=== PATIENT | female | born 1985 | race Caucasian/White ===

== ENCOUNTER 2023-04-28 09:10 | Outpatient (AMB) | payer OTHER, SELFPAY ==
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
[2023-04-28 09:15] VITALS: BP 118/66; PULSE 91; RESP 12; TEMP 36.2; O2SAT 98; BMI 27.9
== END 2023-04-28 10:27 | disposition home or self-care (01) ==
PROVIDERS: PCP Internal Medicine; Visit Provider Nurse Practitioner Family
DX: Z00.00 Encounter for general adult medical examination without abnormal findings (principal); F41.9 Anxiety disorder, unspecified; F32.A Depression, unspecified; F43.10 Post-traumatic stress disorder, unspecified; M54.9 Dorsalgia, unspecified
CPT/HCPCS: 96127; 99214; 99385

== ENCOUNTER 2023-04-28 10:12 | Outpatient (REF) | payer OTHER, SELFPAY ==
[2023-04-28 11:27] LABS: Appearance Urine Clear; Color Urine Dark Yellow; Glucose Urine UA Negative (Negative); Leukocyte Esterase Urine Trace (Negative); Nitrite Urine Negative (Negative); Specific Gravity - Urine >= 1.030 (1.005-1.025); UMIC TRIGGER UACC YES; Urine Blood Trace (Negative); Urine Ketones Trace mg/dL (Negative); Urine Protein Trace mg/dL (Neg-Trace)
[2023-04-28 11:35] LABS: Bacteria Urine Trace (None Seen); UACC Culture Trigger YES
[2023-04-28 11:37] LABS: MANUAL DIFF FLAG NO
[2023-04-28 11:44] LABS: Basophils Percent Auto 0.5 % (0-2); Eosinophils Absolute Auto 0.1 X10*3/uL (0.0-0.4); Eosinophils Percent Auto 0.8 % (0-4); Hematocrit 35.1 % (37.0-47.0); Hemoglobin 11.6 g/dl (12.0-16.0); Imm Gran Abs Auto 0.02 X10*3/uL (0.00-0.03); Imm Gran Pct Auto 0.3 % (0.0-0.4); Lymphocytes Absolute Auto 1.6 X10*3/uL (1.2-4.9); Lymphocytes Percent Auto 26.1 % (20-40); Mean Corpuscular Hemoglobin 29.7 pg (27.0-33.0); Mean Platelet Volume 9.8 fL (9.4-12.3); Monocytes Absolute Auto 0.6 X10*3/uL (0.1-1.2); Monocytes Percent Auto 9.2 % (2-11); Neutrophils Percent Auto 63.1 % (45-73); Platelet Count 392 X10*3/uL (160-400); Red Cell Distribution Width 13.3 % (11.0-16.0); White Blood Count 6.3 X10*3/uL (4.8-10.8)
[2023-04-28 12:52] LABS: Alanine Aminotransferase 21 U/L (0-31); Albumin Level 4.4 g/dL (3.5-5.0); Alkaline Phosphatase 48 U/L (39-117); Anion Gap 14 (12-20); Aspartate Amino Transferase 23 U/L (5-31); Bilirubin Total 1.5 mg/dL (0.0-1.0); Blood Urea Nitrogen 17 mg/dL (9-16); Carbon Dioxide 24 mmol/L (22-29); Chloride 104 mmol/L (96-108); Cholesterol 174 mg/dL (<200); Estimated Glomerular Filt Rate > 60; Glucose Fasting 86 mg/dL (60-99); HDL Cholesterol 69 mg/dL (>40); LDL Cholesterol Calculated 94 mg/dL (<100); Potassium 4.1 mmol/L (3.3-5.1); Sodium 138 mmol/L (135-145); Total Protein 7.5 g/dL (6.5-8.0); Triglycerides 55 mg/dL (<150)
== END 2023-04-28 10:13 | disposition home or self-care (01) ==
LOC: HO.WFDLDS 10:12
PROVIDERS: Visit Provider Nurse Practitioner Family
DX: Z00.00 Encounter for general adult medical examination without abnormal findings (principal); Z20.2 Contact with and (suspected) exposure to infections with a predominantly sexual mode of transmission; R82.90 Unspecified abnormal findings in urine
CPT/HCPCS: 36415; 80053; 80061; 81001; 84443; 85025; 87086

== ENCOUNTER 2023-11-28 12:32 | Outpatient (AMB) | payer OTHER, SELFPAY ==
[2023-11-28 12:41] VITALS: BP 104/60; PULSE 62; RESP 14; TEMP 36.6; O2SAT 99; BMI 30.2
--- NOTE | 2023-11-28 12:41 | MHC.PC.OV ---
Vital Signs 11/28/23 12:41 Height 5 ft 6 in Weight 187 lb 6 oz BMI 30.2 BP 104/60 Blood Pressure Location Rt brachial Position Sitting Respiration 14 Pulse 62 Pulse Source Pulse Oximeter Temp 97.9 F Temp Source Temporal Artery Scan Pulse Oximetry (%) 99 Oxygen Delivery Method Room Air Intake Visit Reasons: F/U meds, blood work, referrals Intake Note: Patient would like refill her lexapro. 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 Accompanied by: Self / Same As Patient Allergies dyes Adverse Reaction (Severe, Uncoded 11/28/23 12:57) 3rd degree haskins fragrance Adverse Reaction (Severe, Uncoded 11/28/23 12:57) Haskins inks Adverse Reaction (Severe, Uncoded 11/28/23 12:57) Haskins Medication List - Last Reconciled 11/28/23 by Logan Garcia CNP escitalopram oxalate (Lexapro) 10 mg PO DAILY 30 days naproxen 500 mg PO BID PRN Tobacco use date assessed: 11/28/23 Dental Screening Dental Screen Date: 11/28/23 Did you have a dental visit in the last 12 months?: Yes Did you have a dental problem in the last 6 months where you did not have access to dental care?: No Was dental information given to patient?: Patient has dentist HPI HPI Comments History of Present Illness Details 38-year-old female presents for right shoulder pain and anxiety and depression follow-up Her last visit was when she established care in April 2023. Escitalopram 10 mg daily was ordered for anxiety, depression, and PTSD. She was advised to follow-up in 1 month She notes that she got promoted at work and has been working many hours She reports constant right shoulder pain which waxes and wanes for the past 2 weeks, worst with pulling objects/doors. She she is in the and often carries 50 lbs of work gear on her shoulders and back. No tingling, numbness, loss of sensation. No fall, injury, or trauma She reports well-controlled anxiety and depression symptoms on Escitalopram She request a letter for her employment noting that escitalopram does not affect her job functions [facility] Medical History (Updated 11/28/23 @ 13:26 by Logan Garcia CNP) Right arm pain Migraine delivery delivered Anxiety PTSD (post-traumatic stress disorder) Memory loss Back problem Arthritis Surgical History (Updated 04/28/23 @ 09:30 by ROXY Kurtz) Status post fusion of wrist H/O tubal ligation Family History (Updated 11/28/23 @ 12:50 by ROXY Kurtz) Mother High cholesterol Father Clotting disorder Alcoholism Psychiatric disorder Paternal Grandmother Clotting disorder Paternal Grandfather Clotting disorder Family/Other Asthma Other Mental health disorder Substance abuse Social History Household Members: Family Both parents involved: No Caregiver staying overnight: No Housing: House Are you a primary personal carer to a significant other at home: No Do you presently have visiting nurse or other home services: No 75 years or older and lives alone: No Alcohol intake: never Patient Tobacco Use Status: Never used Tobacco e-Cigarette/Vaping Use: Never Used service: Yes 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 1. Little interest or pleasure in doing things: not at all 2. Feeling down, depressed, or hopeless: not at all 3. Trouble falling or staying asleep, or sleeping too much: nearly every day 4. Feeling tired or having little energy: several days 5. Poor appetite or overeating: nearly every day 6. Feeling bad about yourself - or that you are a failure or have let yourself or your family down: not at all 7. Trouble concentrating on things, such as reading the newspaper or watching television: several days 8. Moving or speaking so slowly that other people could have noticed. Or the opposite - being so fidgety or restless that you have been moving around a lot more than usual: several days 9. Thoughts that you would be better off or of hurting yourself in some way: not at all Total score: 9 Depression Screening Interpretation: Positive Depression Screening Follow-up: Existing condition and In treatment Depression Screening Done: Yes 73693 - PHQ-9 Billing: Yes Source: Developed by Drs. Adonay Amaya, Louann Brito, Darien Zarco and colleagues, with an educational dee from [employer]. Thrive Questionnaire Date Thrive assessed: 04/28/23 ESTER-7 AMB Questionnaire ESTER-7 Date ESTER - 7 assessed: 11/28/23 Feeling nervous, anxious, or on edge: 0 = Not at all Not being able to stop or control worryin = Not at all Worrying too much about different things: 0 = Not at all Trouble relaxin = Several days Being so restless that it is hard to sit still: 2 = More than half the days Becoming easily annoyed or irritable: 1 = Several days Feeling afraid as if something awful might happen: 0 = Not at all Total ESTER-7 score (0-4 normal; 5-9 mild; 10-14 moderate; 15-21 severe): 4 Source: Developed by Drs. Adonay Amaya, Louann Brito, Darien Zarco and colleagues, with an educational dee from [employer]. ESTER-7 Assessment Billing ESTER-7 Assessment Tool: ESTER-7 Assessment 94400 Review of Systems Const Details: Const Denies chills, Denies fatigue, Denies fever(s), Denies headache(s) and Denies weakness ENT Denies dizziness and Denies headache(s) Card Denies chest pain, Denies lightheadedness, Denies dyspnea and Denies other (Palpitations) Resp Denies cough, Denies dyspnea, Denies wheezing and Denies other ( shortness of breath) GI Denies abdominal pain, Denies melena, Denies hematochezia, Denies change in bowel habits, Denies dyspepsia and Denies nausea Denies hematuria and Denies dysuria Musc Reports as per HPI Skin/Breast Denies rash, Denies unusual bruising and Denies wounds Neuro Denies abnormal gait, Denies dizziness, Denies headache(s), Denies memory loss, Denies numbness, Denies Sensory deficit (Neuro), Denies tingling and Denies weakness Psych Denies anxiety, Denies depression, Denies memory loss Endo Denies cold intolerance, Denies fatigue, Denies heat intolerance, Denies polydipsia and Denies polyuria Aller/Immun Denies wheezing Physical exam (Primary Care) Vital Signs: Last Vital Signs Temp 97.9 F 11/28/23 12:41 Pulse 62 11/28/23 12:41 Resp 14 11/28/23 12:41 BP 104/60 11/28/23 12:41 Pulse Ox 99 11/28/23 12:41 Oxygen Delivery Method Room Air 11/28/23 12:41 BMI result Body Mass Index 30.2 Tobacco/Smoking Status: Tobacco use Status Tobacco use date assessed 04/28/23 04/28/23 09:27 Patient Tobacco Use Status Never used Tobacco 04/28/23 09:27 e-Cigarette/Vaping Use Never Used 04/28/23 09:27 Depression Screening Interpretation: Positive Depression Screening Follow-up: Existing condition and In treatment Thrive Assessment: Date of Thrive Assessment Date Thrive assessed 04/28/23 04/28/23 10:18 Const Other: General: no acute distress and well developed Nutritional Appearance: well nourished Orientation/consciousness: patient oriented x3 HENMT Head: Yes normocephalic and Yes atraumatic Eyes General: appearance normal, both eyes and all related structures Pupils: Equal, round and reactive pupils present EOM: EOMs intact bilaterally Resp Effort & Inspection: normal respiratory effort Auscultation: clear to auscultation bilaterally Cardio Rate: regular rate Rhythm: regular rhythm Heart sounds: S1 normal heart sound present, S2 normal heart sound present, no gallops, no murmurs and no rubs GI Palpation (GI): No Abdominal aortic bruit present, Soft to palpation, nontender, No hepatosplenomegaly present and No Rebound tenderness present Auscultation: normal bowel sounds General: Yes no CVA tenderness Back/Spine/Pelvis Back: no CVA tenderness Cervical Spine: cervical ROM normal and No Cervical spine tenderness Thoracic/Lumbar Spine: thoraco-lumbar ROM normal, No pain with thoraco-lumbar ROM, No thoracic spinal tenderness and No lumbar spinal tenderness Extrem General: Yes normal to inspection, No edema and No calf tenderness ROM of the right shoulder WNL and with tenderness. No overt trauma or injury Skin General: warm and dry. Normal skin color. Normal skin turgor Neuro General: patient oriented x3, gait normal and no focal neuro deficit Cranial nerves: Yes Equal, round and reactive pupils present Cognition (Neuro): normal cognition Gait exam (Neuro): Normal gait present Sensory Exam: No Sensory deficit (Neuro) Psych Appearance: grossly normal Affect: normal affect Attitude: cooperative Thought process: Normal thought process present Assessment and Plan Assessment & Plan (1) Anxiety and depression: Code(s): F41.9 - Anxiety disorder, unspecified; F32.A - Depression, unspecified Plan: Reports controlled anxiety and depression symptoms PHQ-9 score reveals mild depression. ESTER-7 score is normal Escitalopram 10 mg daily refilled. Advised to take as prescribed Routine exercise encouraged Work letter given Follow-up in 1 month or return sooner with symptoms or concerns Verbalized understanding and agreed with treatment plan (2) Right shoulder pain: Code(s): M25.511 - Pain in right shoulder Plan: Constant right shoulder pain which waxes and wanes for the past 2 weeks, worst with pulling objects/doors. She usually carries 50 lbs of work gear on her shoulders and back ROM of the right shoulder WNL and with tenderness. No overt trauma or injury Likely strain or sprain Encouraged to avoid heavy lifting, carrying more than 10 lb on her shoulders or back, sports, and exercise until healed Advised to take naproxen twice daily as needed Warm/cold compresses encouraged Continue to apply muscle rub Follow-up with worsening or new symptoms. May order x-ray and referred to PT Verbalized understanding and agreed with treatment plan (3) Hyperbilirubinemia: Code(s): E80.6 - Other disorders of bilirubin metabolism Plan: Recent lab results reviewed with the patient. Unremarkable findings, except for slightly elevated bilirubin level, 1.5 No acute symptoms Gilbert syndrome is likely Will recheck bilirubin level to monitor trend Verbalized understanding and agreed with the plan Orders: Orders Bilirubin Total Today E80.6 - Other disorders of bilirubin metabolism Medications: Refilled escitalopram oxalate (Lexapro) 10 mg PO DAILY 30 days 30 tabs 3RF Coding Level of Care Code Est Pt Level 4 (90856) Complex EM visit Add On G2211 Diagnoses Anxiety and depression F41.9; F32.A Right shoulder pain M25.511 Hyperbilirubinemia E80.6 Additional Codes ESTER-7 Assessment Billing - ESTER-7 Assessment Tool: ESTER-7 Assessment [id number] ([id number])
== END 2023-11-28 13:16 | disposition home or self-care (01) ==
PROVIDERS: PCP Nurse Practitioner Family; Visit Provider Nurse Practitioner Family
DX: M25.511 Pain in right shoulder (principal); F41.9 Anxiety disorder, unspecified; F32.A Depression, unspecified; E80.6 Other disorders of bilirubin metabolism
CPT/HCPCS: 99214; G2211

== ENCOUNTER 2023-12-29 08:32 | Outpatient (AMB) | payer OTHER, SELFPAY ==
--- NOTE | 2023-12-29 08:33 | A.OFFPC_ITS ---
Vital Signs 12/29/23 08:35 Height 5 ft 6 in Weight 193 lb BMI 31.1 BP 114/70 Blood Pressure Location Rt brachial Position Sitting Respiration 14 Pulse 55 Pulse Source Pulse Oximeter Temp 97.8 F Temp Source Temporal Artery Scan Pulse Oximetry (%) 99 Oxygen Delivery Method Room Air Intake Visit Reasons: 1 mos CPE Lab Tester Required: No Accompanied by: Self / Same As Patient Allergies dyes Adverse Reaction (Severe, Uncoded 12/29/23 08:49) 3rd degree haskins fragrance Adverse Reaction (Severe, Uncoded 12/29/23 08:49) Haskins inks Adverse Reaction (Severe, Uncoded 12/29/23 08:49) Haskins Medication List - Last Reconciled 12/29/23 by Logan Garcia CNP escitalopram oxalate (Lexapro) 10 mg PO DAILY 30 days naproxen 500 mg PO BID PRN Tobacco use date assessed: 12/29/23 Dental Screening Dental Screen Date: 12/29/23 Did you have a dental visit in the last 12 months?: Yes Did you have a dental problem in the last 6 months where you did not have access to dental care?: No Was dental information given to patient?: Patient has dentist HPI HPI Comments History of Present Illness Details 38-year-old female presents for an exten ded physical exam She has history of chronic back pain, right shoulder pain, hyperbilirubinemia, PTSD, anxiety, and depression She admits to taking her medications as prescribed without adverse reactions She notes that her right shoulder pain has significantly improved from 10/10 to 3/10 on the pain scale She reports controlled anxiety and depression symptoms on current treatment regimen She notes that she generally eats healthy but consuming a lot of food has gained weight recently; request medication for weight management. She has not been exercising due to right shoulder pain. She does not sleep well because she works night shifts Last pap smear test in [place] was 1.5 year ago: normal; she will obtain record and bring to his PCP She does not smoke cigarettes. Does not drink alcohol. No recreational drug use She requests a note for his employer stating no pushups due to right shoulder pain [facility] Medical History Right arm pain Migraine delivery delivered Anxiety PTSD (post-traumatic stress disorder) Memory loss Back problem Arthritis Surgical History Status post fusion of wrist H/O tubal ligation Family History Mother High cholesterol Father Clotting disorder Alcoholism Psychiatric disorder Paternal Grandmother Clotting disorder Paternal Grandfather Clotting disorder Family/Other Asthma Other Mental health disorder Substance abuse Social History Household Members: Family Both parents involved: No Caregiver staying overnight: No Housing: House Are you a primary nanny caregiver to a significant other at home: No Do you presently have visiting nurse or other home services: No 75 years or older and lives alone: No Alcohol intake: never Patient Tobacco Use Status: Never used Tobacco e-Cigarette/Vaping Use: Never Used service: Yes 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 1. Little interest or pleasure in doing things: several days 2. Feeling down, depressed, or hopeless: several days 3. Trouble falling or staying asleep, or sleeping too much: nearly every day 4. Feeling tired or having little energy: not at all 5. Poor appetite or overeating: nearly every day 6. Feeling bad about yourself - or that you are a failure or have let yourself or your family down: not at all 7. Trouble concentrating on things, such as reading the newspaper or watching television: not at all 8. Moving or speaking so slowly that other people could have noticed. Or the opposite - being so fidgety or restless that you have been moving around a lot more than usual: not at all 9. Thoughts that you would be better off or of hurting yourself in some way: not at all Total score: 8 Depression Screening Interpretation: Positive Depression Screening Follow-up: Existing condition and In treatment Depression Screening Done: Yes 70094 - PHQ-9 Billing: Yes Source: Developed by Drs. Adonay Amaya, Louann Brtio, Darien Zarco and colleagues, with an educational dee from [employer] Thrive Questionnaire Date Thrive assessed: 12/29/23 I am a: Patient What is your living situation today?: I have a steady place to live Within the past 12 months, did the food you bought not last and you didn't have the money to get more?: Never true Within the past 12 months, did you worry whether your food would run out before you got money to buy more?: Never true Do you have trouble paying for medicines?: No Do you have trouble getting transportation to medical appointments?: No Do you have trouble paying your heating and electricity bill?: No Do you have trouble taking care of your child, family member or friend?: No Do you have trouble with day-to-day activities such as bathing, preparing meals, shopping, managing finances, etc.?: No Are you currently unemployed and looking for a job?: No Are you interested in more education?: No Please select the resources that you would like help with: None Currently or been in a relationship where the following occur: no concerns reported THRIVE Score: 0 AUDIT C Alcohol Use Questionnaire (AUDIT-C) 1. How often do you have a drink containing alcohol?: Never 3. How often do you have six or more drinks on one occasion?: Never Total Score: 0 ESTER-7 AMB Questionnaire ESTER-7 Date ESTER - 7 assessed: 12/29/23 Feeling nervous, anxious, or on edge: 0 = Not at all Not being able to stop or control worryin = Not at all Worrying too much about different things: 0 = Not at all Trouble relaxin = Not at all Being so restless that it is hard to sit still: 0 = Not at all Becoming easily annoyed or irritable: 0 = Not at all Feeling afraid as if something awful might happen: 0 = Not at all Total ESTER-7 score (0-4 normal; 5-9 mild; 10-14 moderate; 15-21 severe): 0 Source: Developed by Drs. Adonay Amaya, Louann Brito, Darien Zarco and colleagues, with an educational dee from [employer] ESTER-7 Assessment Billing ESTER-7 Assessment Tool: ESTER-7 Assessment 72063 Review of Systems Const Details: Denies chills, Denies fatigue, Denies fever(s), Denies headache(s) and Denies weakness HEENT Denies change in vision, Denies dizziness, Denies headache(s), Denies hearing loss, Denies nasal congestion, Denies sinus pain, Denies sinus pressure and Denies sore throat Card Denies chest pain, Denies lightheadedness, Denies dyspnea and Denies other (palpitations) Resp Denies cough, Denies dyspnea and Denies wheezing GI Denies abdominal pain, Denies melena, Denies hematochezia, Denies change in bowel habits, Denies dyspepsia and Denies nausea Denies hematuria and Denies dysuria Musc Reports right shoulder pain, Denies abnormal gait, Denies numbness and Denies tingling Skin/Breast Denies rash, Denies unusual bruising and Denies wounds Neuro Denies abnormal gait, Denies dizziness, Denies headache(s), Denies memory loss, Denies numbness, Denies Sensory deficit (Neuro), Denies tingling and Denies weakness Psych Denies anxiety, Denies depression and Denies memory loss Endo Denies cold intolerance, Denies fatigue, Denies heat intolerance, Denies polydipsia and Denies polyuria Shane/Lymph Denies easy bleeding and Denies easy bruising Aller/Immun Denies wheezing Physical exam (Primary Care) Vital Signs: Last Vital Signs Temp 97.8 F 12/29/23 08:35 Pulse 55 12/29/23 08:35 Resp 14 12/29/23 08:35 BP 114/70 12/29/23 08:35 Pulse Ox 99 12/29/23 08:35 Oxygen Delivery Method Room Air 12/29/23 08:35 BMI result Body Mass Index 31.1 Tobacco/Smoking Status: Tobacco use Status Tobacco use date assessed 12/29/23 12/29/23 08:44 Patient Tobacco Use Status Never used Tobacco 12/29/23 08:35 e-Cigarette/Vaping Use Never Used 12/29/23 08:35 PHQ-9: PHQ-9 Score PHQ-9: Total score 8 12/29/23 08:44 Depression Screening Interpretation: Positive Depression Screening Follow-up: Existing condition and In treatment Thrive Assessment: Date of Thrive Assessment Date Thrive assessed 12/29/23 12/29/23 08:44 Currently or been in a relationship where the following occur: no concerns reported Const Other: General: no acute distress, well developed, alert and awake Nutritional Appearance: well nourished Orientation/consciousness: patient oriented x3 [facility] Head: Yes normocephalic and Yes atraumatic Ears: hearing grossly normal bilaterally and TM's normal bilaterally General nose exam: Normal external nose present and Normal nares present Mouth: Normal oral and palatal mucosa present and moist mucous membranes Teeth and gingiva: dentition normal Throat: Yes oropharynx normal Eyes Pupils: Equal, round and reactive pupils present and Pupil accommodation reflex normal EOM: EOMs intact bilaterally Neck Neck: Yes normal visual inspection, Yes no lymphadenopathy and Yes trachea midline Thyroid: Thyroid normal Carotids: no bruits Lymphatic: no lymphadenopathy noted Chest Chest palpation & inspection: normal inspection of the chest Resp Effort & Inspection: normal respiratory effort Auscultation: clear to auscultation bilaterally Cardio Rate: regular rate Rhythm: regular rhythm Heart sounds: S1 normal heart sound present, S2 normal heart sound present, no gallops, no murmurs and no rubs Bruits: no abdominal aortic bruits and no carotid bruits GI Palpation (GI): No Abdominal aortic bruit present, Soft to palpation, nontender, No hepatosplenomegaly present and No Rebound tenderness present Auscultation: normal bowel sounds General: Yes no CVA tenderness Back/Spine/Pelvis Back: no CVA tenderness Cervical Spine: cervical ROM normal and No Cervical spine tenderness Thoracic/Lumbar Spine: thoraco-lumbar ROM normal, No pain with thoraco-lumbar ROM, No thoracic spinal tenderness and No lumbar spinal tenderness Skin General: warm and dry. Normal skin color. Normal skin turgor Lesions: no lesions Rashes: no rashes Trauma: no lacerations or abrasions Wounds: no wounds Nails: normal Neuro General: patient oriented x3, gait normal and CN's II-XI intact bilaterally Cranial nerves: Yes Equal, round and reactive pupils present Cognition (Neuro): normal cognition Gait exam (Neuro): Normal gait present Motor exam (neuro): 5/5 motor strength present throughout Sensory Exam: No Sensory deficit (Neuro) Deep tendon reflexes (DTR's): Right patellar reflex intensity grade: 2+ and Left patellar reflex intensity grade: 2+ Extrem General: Yes normal to inspection, No edema and No calf tenderness Psych Appearance: grossly normal Affect: normal affect Attitude: cooperative Thought process: Normal thought process present Assessment and Plan Assessment & Plan (1) Normal physical examination, routine: Code(s): Z00.00 - Encounter for general adult medical examination without abnormal findings Plan: No significant physical restrictions or limitations noted Continue current treatment regimen Healthy diet and routine exercise encouraged Encouraged to get bilirubin and urinalysis lab work done Follow-up in 3 months for anxiety and depression or return sooner with symptoms or concerns Verbalized understanding and agreed with treatment plan (2) Anxiety and depression: Code(s): F41.9 - Anxiety disorder, unspecified; F32.A - Depression, unspecified Plan: Reports controlled anxiety and depression symptoms PHQ-9 score reveals mild depression. ESTER-7 score is normal Continue current treatment regimen Routine exercise encouraged Follow-up in 3 months Verbalized understanding and agreed with treatment plan (3) Right shoulder pain: Code(s): M25.511 - Pain in right shoulder Plan: Pain has significantly improved from 10/10 to 3/10 on the pain scale Continue current treatment regimen Encouraged to avoid sports or heavy lifting until healed Note given to avoid pushups until healed Referred to physical therapy Follow-up with worsening or new symptoms Verbalized understanding and agreed with treatment plan (4) Obesity (BMI 30.0-34.9): Code(s): E66.9 - Obesity, unspecified Plan: She generally eats healthy. However, she has been consuming significant amount of food and has gained weight recently. She requests medication treatment for weight management Healthy diet and routine exercise encouraged [place] [facility] [place] Follow-up with symptoms or concerns Verbalized understanding and agreed with treatment plan Orders: Orders PT Evaluation and Treatment Today M25.511 - Pain in right shoulder Referrals Medical Weight Management Referral E66.9 - Obesity, unspecified Coding Level of Care Code Est Pt Level 4 (02050) Est Pt Prev Care 18-39y(78444) Diagnoses Normal physical examination, routine Z00.00 Anxiety and depression F41.9; F32.A Right shoulder pain M25.511 Obesity (BMI 30.0-34.9) E66.9 Additional Codes ESTER-7 Assessment Billing - ESTER-7 Assessment Tool: ESTER-7 Assessment 40101 ([id number])
[2023-12-29 08:35] VITALS: BP 114/70; PULSE 55; RESP 14; TEMP 36.6; O2SAT 99; BMI 31.1
== END 2023-12-29 09:04 | disposition home or self-care (01) ==
PROVIDERS: PCP Nurse Practitioner Family; Visit Provider Nurse Practitioner Family
DX: Z00.00 Encounter for general adult medical examination without abnormal findings (principal); F41.9 Anxiety disorder, unspecified; E66.9 Obesity, unspecified; Z68.31 Body mass index [BMI] 31.0-31.9, adult; F32.A Depression, unspecified; M25.511 Pain in right shoulder
CPT/HCPCS: 99395

== ENCOUNTER 2023-12-29 09:20 | Outpatient (REF) | payer OTHER, SELFPAY ==
[2023-12-29 11:48] LABS: Appearance Urine Clear; Color Urine Yellow; Glucose Urine UA Negative (Negative); Leukocyte Esterase Urine Negative (Negative); Nitrite Urine Negative (Negative); PH 5.5 (5.0-9.0); UMIC TRIGGER UACC YES; Urine Blood Large (3+) (Negative); Urine Ketones Negative (Negative); Urine Protein Negative (Neg-Trace)
[2023-12-29 11:55] LABS: Bacteria Urine None Seen (None Seen); Hyaline Casts Urine 0-2 /LPF (0-2); RBC Urine >20 /HPF (0-2); Squamous Epithelial Cell Urine 0-2 /HPF (0-2); WBC Urine 0-5 /HPF (0-5)
[2023-12-29 12:07] LABS: Bilirubin Total 0.4 mg/dL (0.0-1.0)
== END 2023-12-29 09:21 | disposition home or self-care (01) ==
LOC: HO.WFDLDS 09:20
PROVIDERS: Visit Provider Nurse Practitioner Family
DX: Z00.00 Encounter for general adult medical examination without abnormal findings (principal); E80.6 Other disorders of bilirubin metabolism
CPT/HCPCS: 36415; 81001; 82247

== ENCOUNTER 2024-02-27 13:48 | Outpatient (AMB) | payer OTHER, SELFPAY ==
--- NOTE | 2024-02-27 13:49 | A.OFFPC_ITS ---
Vital Signs 02/27/24 13:51 Height 5 ft 6 in Weight 179 lb 6 oz BMI 28.9 BP 130/70 Blood Pressure Location Lt brachial Position Sitting Respiration 18 Pulse 70 Pulse Source Pulse Oximeter Pulse Oximetry (%) 98 Oxygen Delivery Method Room Air Intake Visit Reasons: fill out paperwork for shoulder/ PT orders Intake Note: Patient is here to follow up on fill out paperwork for shoulder and PT order. [employer] Planner Required: No Maintenance Welder: Not Required per policy Accompanied by: Self / Same As Patient Allergies dyes Adverse Reaction (Severe, Uncoded 02/27/24 13:51) 3rd degree haskins fragrance Adverse Reaction (Severe, Uncoded 02/27/24 13:51) Haskins inks Adverse Reaction (Severe, Uncoded 02/27/24 13:51) Haskins Tobacco use date assessed: 02/27/24 Dental Screening Dental Screen Date: 12/29/23 HPI HPI Comments History of Present Illness Details 38-year-old female presents for paperwor k related to right shoulder pain She has history of constant right shoulder pain which intensifies with pulling objects/doors. No tingling, numbness, or loss of sensation. She is in the and often carries 50 lb of work gear on her shoulders and back. She was given a note to avoid pushups until healed. She was also referred to phys ical therapy. She notes that she was told to ask her PCP to fill out a different from which she brought today. She notes that she is scheduled to start PT next month. She has been taking Naproxen 500mg daily with significant improvement. She notes significant improvement of her right shoulder since her last visit; average pain is 2-4/10. [facility] Medical History Right arm pain Migraine delivery delivered Anxiety PTSD (post-traumatic stress disorder) Memory loss Back problem Arthritis Surgical History Status post fusion of wrist H/O tubal ligation Family History Mother High cholesterol Father Clotting disorder Alcoholism Psychiatric disorder Paternal Grandmother Clotting disorder Paternal Grandfather Clotting disorder Family/Other Asthma Other Mental health disorder Substance abuse Social History (Reviewed 08/02/24 @ 13:50 by SANTINO Magaña Household Members: Family Both parents involved: No Caregiver staying overnight: No Housing: House Are you a primary district manager primary care sales to a significant other at home: No Do you presently have visiting nurse or other home services: No 75 years or older and lives alone: No Alcohol intake: never Patient Tobacco Use Status: Never used Tobacco e-Cigarette/Vaping Use: Never Used Second Hand Smoke Exposure: No service: Yes 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 Adonay Amaya, Louann Brito, Darien Zarco and colleagues, with an educational dee from [employer]. Review of Systems Const Details: Const Denies chills, Denies fatigue, Denies fever(s), Denies headache(s) and Denies weakness ENT Denies dizziness and Denies headache(s) Card Denies chest pain, Denies lightheadedness, Denies dyspnea and Denies other (Palpitations) Resp Denies cough, Denies dyspnea, Denies wheezing and Denies other ( shortness of breath) GI Denies abdominal pain, Denies melena, Denies hematochezia, Denies change in bowel habits, Denies dyspepsia and Denies nausea Denies hematuria and Denies dysuria Musc Reports as per HPI Skin/Breast Denies rash, Denies unusual bruising and Denies wounds Neuro Denies abnormal gait, Denies dizziness, Denies headache(s), Denies memory loss, Denies numbness, Denies Sensory deficit (Neuro), Denies tingling and Denies weakness Psych Denies anxiety, Denies depression, Denies memory loss Endo Denies cold intolerance, Denies fatigue, Denies heat intolerance, Denies polydipsia and Denies polyuria Aller/Immun Denies wheezing Physical exam (Primary Care) Vital Signs: Last Vital Signs Pulse 70 02/27/24 13:51 BP 130/70 02/27/24 13:51 Pulse Ox 98 02/27/24 13:51 Oxygen Delivery Method Room Air 02/27/24 13:51 BMI result Body Mass Index 28.9 Tobacco/Smoking Status: Tobacco use Status Tobacco use date assessed 02/27/24 02/27/24 13:58 Patient Tobacco Use Status Never used Tobacco 02/27/24 13:58 e-Cigarette/Vaping Use Never Used 02/27/24 13:58 Thrive Assessment: Date of Thrive Assessment Date Thrive assessed 12/29/23 02/27/24 13:58 Const Other: General: no acute distress and well developed Nutritional Appearance: well nourished Orientation/consciousness: patient oriented x3 HENMT Head: Yes normocephalic and Yes atraumatic Eyes General: appearance normal, both eyes and all related structures Pupils: Equal, round and reactive pupils present EOM: EOMs intact bilaterally Resp Effort & Inspection: normal respiratory effort Auscultation: clear to auscultation bilaterally Cardio Rate: regular rate Rhythm: regular rhythm Heart sounds: S1 normal heart sound present, S2 normal heart sound present, no gallops, no murmurs and no rubs GI Palpation (GI): No Abdominal aortic bruit present, Soft to palpation, nontender, No hepatosplenomegaly present and No Rebound tenderness present Auscultation: normal bowel sounds General: Yes no CVA tenderness Back/Spine/Pelvis Back: no CVA tenderness Cervical Spine: cervical ROM normal and No Cervical spine tenderness Thoracic/Lumbar Spine: thoraco-lumbar ROM normal, No pain with thoraco-lumbar ROM, No thoracic spinal tenderness and No lumbar spinal tenderness Extrem General: Yes normal to inspection, No edema and No calf tenderness ROM of the right shoulder within normal limits; no overt injury or trauma Skin General: warm and dry. Normal skin color. Normal skin turgor Neuro General: patient oriented x3, gait normal and no focal neuro deficit Cranial nerves: Yes Equal, round and reactive pupils present Cognition (Neuro): normal cognition Gait exam (Neuro): Normal gait present Sensory Exam: No Sensory deficit (Neuro) Psych Appearance: grossly normal Affect: normal affect Attitude: cooperative Thought process: Normal thought process present Assessment and Plan Assessment & Plan (1) Right shoulder pain: Code(s): M25.511 - Pain in right shoulder Plan: Right shoulder pain has significantly improved; 2-4/10 on average ROM of the right shoulder within normal limits; no overt injury or trauma Continue current treatment regimen Encouraged to avoid sports or heavy lifting until healed Follow-up with PT as scheduled New form filled out and given to avoid pushups until healed Follow up as planned Return with worsening or new symptoms Verbalized understanding and agreed with treatment plan Coding Level of Care Code Est Pt Level 4 (86235) Complex EM visit Add On G2211 Diagnoses Right shoulder pain M25.511
[2024-02-27 13:51] VITALS: BP 130/70; PULSE 70; RESP 18; O2SAT 98; BMI 28.9
== END 2024-02-27 15:00 | disposition home or self-care (01) ==
PROVIDERS: PCP Nurse Practitioner Family; Visit Provider Nurse Practitioner Family
DX: M25.511 Pain in right shoulder (principal)
CPT/HCPCS: 99214; G2211

== ENCOUNTER 2024-04-09 15:16 | Outpatient (AMB) | payer OTHER, SELFPAY ==
--- NOTE | 2024-04-09 15:27 | A.OFFPC_ITS ---
Vital Signs 04/09/24 15:31 Height 5 ft 6 in Weight 180 lb BMI 29.0 BP 98/70 Blood Pressure Location Lt brachial Position Sitting Respiration 14 Pulse 77 Pulse Source Pulse Oximeter Temp 98.5 F Temp Source Oral Pulse Oximetry (%) 98 Oxygen Delivery Method Room Air Intake Visit Reasons: 3 mos anxiety, depression Intake Note: Three month follow up. Throat is sore and itchy. Fatigue. Symptoms started two days ago. 2 coworker tested postive for covid. One one week ago, the other two weeks ago. Needs refilll on Lexapro Sponge Packer Required: No Allergies dyes Adverse Reaction (Severe, Uncoded 04/09/24 15:44) 3rd degree haskins fragrance Adverse Reaction (Severe, Uncoded 04/09/24 15:44) Haskins inks Adverse Reaction (Severe, Uncoded 04/09/24 15:44) Haskins Medication List - Last Reconciled 04/09/24 by Logan Garcia CNP escitalopram oxalate (Lexapro) 10 mg PO DAILY 30 days naproxen 500 mg PO BID PRN Tobacco use date assessed: 02/27/24 Dental Screening Dental Screen Date: 12/29/23 HPI HPI Comments History of Present Illness Details 38-year-old female presents for anxiety and depression follow-up She admits to taking Lexapro as prescribed without adverse reactions She reports controlled anxiety and depressive symptoms She notes that she generally eats and sleeps well. She has been exercising routinely Her right shoulder pain has resolved She reports itchy/sore throat and fatigue for the past 2 days. She reports positive COVID contact her workplace 1-2 weeks ago. She has not had a COVID test REPLACED BY [facility] Medical History Right arm pain Migraine delivery delivered Anxiety PTSD (post-traumatic stress disorder) Memory loss Back problem Arthritis Surgical History Status post fusion of wrist H/O tubal ligation Family History Mother High cholesterol Father Clotting disorder Alcoholism Psychiatric disorder Paternal Grandmother Clotting disorder Paternal Grandfather Clotting disorder Family/Other Asthma Other Mental health disorder Substance abuse Social History Household Members: Family Housing: House Are you a primary early breastfeeding care specialist to a significant other at home: No Do you presently have visiting nurse or other home services: No Alcohol intake: never Patient Tobacco Use Status: Never used Tobacco e-Cigarette/Vaping Use: Never Used Second Hand Smoke Exposure: No service: Yes 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 1. Little interest or pleasure in doing things: several days 2. Feeling down, depressed, or hopeless: not at all 3. Trouble falling or staying asleep, or sleeping too much: several days 4. Feeling tired or having little energy: not at all 5. Poor appetite or overeating: not at all 6. Feeling bad about yourself - or that you are a failure or have let yourself or your family down: several days 7. Trouble concentrating on things, such as reading the newspaper or watching television: not at all 8. Moving or speaking so slowly that other people could have noticed. Or the opposite - being so fidgety or restless that you have been moving around a lot more than usual: several days 9. Thoughts that you would be better off or of hurting yourself in some way: not at all Total score: 4 Depression Screening Interpretation: Negative Depression Screening Done: Yes 34355 - PHQ-9 Billing: Yes Source: Developed by Drs. Adonay Amaya, Louann Brito, Darien Zarco and colleagues, with an educational dee from [employer]. Thrive Questionnaire Date Thrive assessed: 12/29/23 ESETR-7 AMB Questionnaire ESTER-7 Date ESTER - 7 assessed: 04/09/24 Feeling nervous, anxious, or on edge: 0 = Not at all Not being able to stop or control worryin = Not at all Worrying too much about different things: 0 = Not at all Trouble relaxin = Several days Being so restless that it is hard to sit still: 1 = Several days Becoming easily annoyed or irritable: 1 = Several days Feeling afraid as if something awful might happen: 0 = Not at all Total ESTER-7 score (0-4 normal; 5-9 mild; 10-14 moderate; 15-21 severe): 3 Source: Developed by Drs. Adonay Amaya, Louann Brito, Darien Zarco and colleagues, with an educational dee from [employer]. ESTER-7 Assessment Billing ESTER-7 Assessment Tool: ESTER-7 Assessment 16746 Review of Systems Const Details: Const Denies chills, Repors fatigue, Denies fever(s), Denies headache(s) and Denies weakness ENT Denies dizziness and Denies headache(s) Card Denies chest pain, Denies lightheadedness, Denies dyspnea and Denies other (Palpitations) Resp Denies cough, Denies dyspnea, Denies wheezing and Denies other ( shortness of breath) GI Denies abdominal pain, Denies melena, Denies hematochezia, Denies change in bowel habits, Denies dyspepsia and Denies nausea Denies hematuria and Denies dysuria Musc Denies abnormal gait, Denies myalgias, Denies arthralgias, Denies numbness and Denies tingling Skin/Breast Denies rash, Denies unusual bruising and Denies wounds Neuro Denies abnormal gait, Denies dizziness, Denies headache(s), Denies memory loss, Denies numbness, Denies Sensory deficit (Neuro), Denies tingling and Denies weakness Psych Denies anxiety, Denies depression, Denies memory loss Endo Denies cold intolerance, Reports fatigue, Denies heat intolerance, Denies polydipsia and Denies polyuria Aller/Immun Denies wheezing Physical exam (Primary Care) Vital Signs: Last Vital Signs Temp 98.5 F 04/09/24 15:31 Pulse 77 04/09/24 15:31 Resp 14 04/09/24 15:31 BP 98/70 04/09/24 15:31 Pulse Ox 98 04/09/24 15:31 Oxygen Delivery Method Room Air 04/09/24 15:31 BMI result Body Mass Index 29.0 Tobacco/Smoking Status: Tobacco use Status Tobacco use date assessed 02/27/24 04/09/24 15:31 Patient Tobacco Use Status Never used Tobacco 04/09/24 15:31 e-Cigarette/Vaping Use Never Used 04/09/24 15:31 PHQ-9: PHQ-9 Score PHQ-9: Total score 4 04/09/24 15:35 Depression Screening Interpretation: Negative Thrive Assessment: Date of Thrive Assessment Date Thrive assessed 12/29/23 04/09/24 15:31 Const Other: General: no acute distress and well developed Nutritional Appearance: well nourished Orientation/consciousness: patient oriented x3 HENMT Head is normocephalic Bilateral ear canal and TM are normal Nasal turbinates and oropharynx are pink and moist. No patches or exudates Sinuses are nontender with palpation No auricular or cervical lymphadenopathy Eyes General: appearance normal, both eyes and all related structures Pupils: Equal, round and reactive pupils present EOM: EOMs intact bilaterally Resp Effort & Inspection: normal respiratory effort Auscultation: clear to auscultation bilaterally Cardio Rate: regular rate Rhythm: regular rhythm Heart sounds: S1 normal heart sound present, S2 normal heart sound present, no gallops, no murmurs and no rubs GI Palpation (GI): No Abdominal aortic bruit present, Soft to palpation, nontender, No hepatosplenomegaly present and No Rebound tenderness present Auscultation: normal bowel sounds General: Yes no CVA tenderness Back/Spine/Pelvis Back: no CVA tenderness Cervical Spine: cervical ROM normal and No Cervical spine tenderness Thoracic/Lumbar Spine: thoraco-lumbar ROM normal, No pain with thoraco-lumbar ROM, No thoracic spinal tenderness and No lumbar spinal tenderness Extrem General: Yes normal to inspection, No edema and No calf tenderness Skin General: warm and dry. Normal skin color. Normal skin turgor Neuro General: patient oriented x3, gait normal and no focal neuro deficit Cranial nerves: Yes Equal, round and reactive pupils present Cognition (Neuro): normal cognition Gait exam (Neuro): Normal gait present Sensory Exam: No Sensory deficit (Neuro) Psych Appearance: grossly normal Affect: normal affect Attitude: cooperative Thought process: Normal thought process present Assessment and Plan Assessment & Plan (1) Anxiety and depression: Code(s): F41.9 - Anxiety disorder, unspecified; F32.A - Depression, unspecified Plan: Reports controlled anxiety and depressive symptoms Continue current treatment regimen Routine exercise encouraged Follow-up in 3 months or sooner with worsening or new symptoms Verbalized understanding and agreed with the plan (2) Viral upper respiratory illness: Code(s): J06.9 - Acute upper respiratory infection, unspecified Plan: Likely viral illness though possibly allergies. No exam evidence of bacterial infection Viral illness There is no antibiotic medication for viruses.? They must run their course.? Most average 5-7 days but 7-10 days is not uncommon and up to 14 days is still possible.? A cough is often the last symptom to resolve and this can last for weeks in some cases. Rest Hydrate well -? Drink plenty of fluids.? Especially water. Tylenol or ibuprofen for muscle aches, headache, fever/discomfort Cannot rule out COVID-19/RSV/Flu infection Nasal swab acquired and will be sent to the lab Return for new or worsening symptoms Verbalized understanding and agreed with treatment plan. Orders: Orders SARS-CoV2/FLU/RSV Today J06.9 - Acute upper respiratory infection, unspecified Medications: Refilled escitalopram oxalate (Lexapro) 10 mg PO DAILY 30 days 30 tabs 3RF Coding Level of Care Code Est Pt Level 4 (56337) Diagnoses Anxiety and depression F41.9; F32.A Viral upper respiratory illness J06.9 Additional Codes ESTER-7 Assessment Billing - ESTER-7 Assessment Tool: ESTER-7 Assessment 25096 ([id number])
[2024-04-09 15:31] VITALS: BP 98/70; PULSE 77; RESP 14; TEMP 36.9; O2SAT 98; BMI 29.0
== END 2024-04-09 15:58 | disposition home or self-care (01) ==
LOC: HO.HMGFM 15:16
PROVIDERS: PCP Internal Medicine; Visit Provider Nurse Practitioner Family
DX: F41.9 Anxiety disorder, unspecified (principal); F32.A Depression, unspecified; J06.9 Acute upper respiratory infection, unspecified
CPT/HCPCS: 96127; 99214

== ENCOUNTER 2024-04-09 16:00 | Outpatient (REF) | payer OTHER, SELFPAY ==
[2024-04-09 18:37] LABS: Influenza A PCR NEGATIVE (Negative); Influenza B PCR NEGATIVE (Negative); Resp Syncy Virus RNA Qual PCR NEGATIVE (Negative); SARS COV2 PCR INHOUSE NEGATIVE (Negative)
== END 2024-04-09 16:01 | disposition home or self-care (01) ==
LOC: HO.LAB 16:00
PROVIDERS: Visit Provider Nurse Practitioner Family
DX: J06.9 Acute upper respiratory infection, unspecified (principal)
CPT/HCPCS: 0241U

== ENCOUNTER 2024-05-19 21:10 | Emergency (ER) | payer OTHER, SELFPAY ==
--- NOTE | ~2024-05-19 | XR_ITS ---
EXAMINATION: XR FINGER, RIGHT CLINICAL INFORMATION: Pain, redness, swelling and limited range of motion COMPARISON: None available. TECHNIQUE: Single view of the hand +2 additional views of the right thumb. FINDINGS: There is a slightly amorphous 3 to 4 mm calcific density seen adjacent to the lateral aspect of the DIP joint of the thumb. There is associated soft tissue swelling. No other abnormality is seen and no joint space disease is detected. No fractures are detected. XR/XR finger RT min 2V IMPRESSION: Soft tissue swelling with amorphous calcific density adjacent to the DIP joint of the thumb. Differential diagnosis would include gout, calcific periarthritis, calcific tendinitis and calcific periarthritis. Electronically signed by: Stephane Juarez MD 05/19/2024 11:49 PM EDT
[2024-05-19 21:25] VITALS: BP 109/49; PULSE 60; RESP 18; TEMP 36.6; O2SAT 100; BMI 29.0
--- NOTE | 2024-05-20 01:06 | ED.EXTPRO ---
HPI - Extremity Problem General Chief complaint: Extremity Injury, Upper Stated complaint: rt wrist/hand pain Time Seen by Provider: 05/20/24 00:38 Source: patient Limitations: no limitations History of Present Illness ED Provider: Jessenia De La Cruz PA-C HPI Narrative: 38-year-old female presents with right thumb pain. Patient states she woke at noon today with a red swollen thumb. Unclear mechanism of injury. Related Data Previous Rx's ?Medication ?Instructions ?Recorded naproxen 500 mg tablet 500 mg PO BID PRN pain #60 tabs 04/28/23 escitalopram oxalate 10 mg tablet 10 mg PO DAILY 30 days #30 tabs 04/09/24 (Lexapro) indomethacin 50 mg capsule 50 mg PO TID PRN pain #15 caps 05/20/24 Allergies Allergy/AdvReac Type Severity Reaction Status Date / Time dyes AdvReac Severe 3rd degree Uncoded 05/19/24 21:27 haskins fragrance AdvReac Severe Hasknis Uncoded 05/19/24 21:27 inks AdvReac Severe Haskins Uncoded 05/19/24 21:27 Review of Systems Constitutional: Constitutional: Denies fatigue and Denies fever(s) Cardiovascular: Cardiovascular: Denies chest pain and Denies dyspnea Respiratory: Respiratory: Denies dyspnea Gastrointestinal: Gastrointestinal: Denies abdominal pain and Denies vomiting Musculoskeletal: Musculoskeletal: Reports arthralgias and Reports joint swelling Endocrine: Endocrine: Denies fatigue PMFSH Past Medical History Attestation statement: The following information was validated with the patient. Medical History Right arm pain Migraine delivery delivered Anxiety PTSD (post-traumatic stress disorder) Memory loss Back problem Arthritis Surgical History Status post fusion of wrist H/O tubal ligation Family History Family History Mother High cholesterol Father Clotting disorder Alcoholism Psychiatric disorder Paternal Grandmother Clotting disorder Paternal Grandfather Clotting disorder Family/Other Asthma Other Mental health disorder Substance abuse Social History Social History Household Members: Family Both parents involved: No Caregiver staying overnight: No Housing: House Are you a primary health care legal assistant to a significant other at home: No Do you presently have visiting nurse or other home services: No 75 years or older and lives alone: No Alcohol intake: never Patient Tobacco Use Status: Never used Tobacco e-Cigarette/Vaping Use: Never Used Second Hand Smoke Exposure: No service: Yes 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 occupational 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: 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 Cognitive needs: No Hearing needs: No Vision needs: Yes Physical Exam Vital Signs: Vital Signs: Last Vital Signs Temp 97.9 F 05/20/24 02:32 Pulse 60 05/20/24 02:32 Resp 18 05/20/24 02:32 BP 109/49 L 05/20/24 02:32 Pulse Ox 100 05/20/24 02:32 O2 Del Method Room Air 05/20/24 02:32 BMI result Body Mass Index 29.0 Const: Other: Alert, well appearing Orientation/consciousness: patient oriented x3 Resp: Other: Nonlabored respiration Cardio: Other: Normal peripheral perfusion Skin: Other: Warm dry no rash Neuro: General: patient oriented x3, no focal motor deficits and CN's II-XI intact bilaterally Extrem: Other: Patient has full range of motion of the thumb, there is a tender swelling noted over the dorsum at the DIP, skin is subtly warm and mildly erythematous Psych: Other: Calm cooperative Medications Administered Discontinued Medications Generic Name Dose Route Start Last Admin Trade Name Freq PRN Reason Stop Dose Admin Indomethacin 50 mg 05/20/24 01:48 05/20/24 02:26 Indomethacin 25 Mg Capsule PO 05/20/24 01:49 50 mg ONCE ONE Administration Medical Decision Making Medical Decision Making [facility] Narrative: 38-year-old female presents with right thumb pain. Patient states she woke at noon today with a red swollen thumb. Unclear mechanism of injury. No chronic issues History: Per patient I have considered the following differential diagnoses: Paronychia, cellulitis, purulent cellulitis, septic joint, gout Plan: X-ray obtained from triage, she has a calcification that is consistent with gout. I have viewed the site with bedside ultrasound to rule out abscess, there was no fluid collection. We will treat her empirically for gout with return precautions for infection. I have independently reviewed the following tests: X-ray: XR/XR finger RT min 2V IMPRESSION: Soft tissue swelling with amorphous calcific density adjacent to the DIP joint of the thumb. Differential diagnosis would include gout, calcific periarthritis, calcific tendinitis and calcific periarthritis. Electronically signed by: Stephane Juarez MD 05/19/2024 11:49 PM EDT RP Discharge Plan Discharge Clinical Impression: Gout Patient Disposition: Home, Self-Care Instructions: Low Purine Diet (ED), Gout (ED) Additional Instructions: You were found to have a calcification in the joint of the right thumb that was concerning for gout. See home care instructions. Use the indomethacin as directed for pain. Follow up with your primary care provider as needed. I viewed the thumb with the ultrasound, there was no discrete fluid collection, to suggest an associated infection. You should be monitoring for signs of infection which would include increased swelling, redness, pus draining from the thumb or a fever. If you develop any of these symptoms seek medical attention. Otherwise follow up with your primary care provider as needed. Prescriptions: New indomethacin 50 mg capsule 50 mg PO TID PRN (Reason: pain) Qty: 15 0RF Rx Instructions: administer with food or milk No Action escitalopram oxalate [Lexapro] 10 mg tablet 10 mg PO DAILY 30 Days Qty: 30 3RF naproxen 500 mg tablet 500 mg PO BID PRN (Reason: pain) Qty: 60 1RF Stand Alone Forms: Work/School Release Interventions: ED Discharge Assessment Last Done: 05/20/24 02:32 Discharge Date/Time: 05/20/24 02:33 Print Language: Khmer
--- NOTE | 2024-05-20 02:23 | PC.NURSE ---
Awaiting ordered medication from another Pyxis within the hospital. Discharging the patient upon medicating for gout.
[2024-05-20] MEDS: Indomethacin 25 MG CAPSULE 50 MG PO (02:26)
[2024-05-20 02:32] VITALS: BP 109/49; PULSE 60; RESP 18; TEMP 36.6; O2SAT 100
== END 2024-05-20 02:33 | disposition home or self-care (01) ==
PROVIDERS: Emergency Provider Internal Medicine; PCP Nurse Practitioner Family
DX: M10.041 Idiopathic gout, right hand (principal); M79.644 Pain in right finger(s)
CPT/HCPCS: 73140; 99283

== ENCOUNTER 2024-05-27 13:03 | Outpatient (AMB) | payer OTHER, SELFPAY ==
--- NOTE | 2024-05-27 13:10 | MHC.PC.OV ---
Vital Signs 05/27/24 13:16 Height 5 ft 6 in Weight 181 lb 2 oz BMI 29.2 BP 108/78 Blood Pressure Location Rt brachial Position Sitting Respiration 16 Pulse 62 Pulse Source Pulse Oximeter Temp 98.1 F Temp Source Oral Pulse Oximetry (%) 100 Oxygen Delivery Method Room Air Intake Visit Reasons: ER FOLLOW UP/scanned into chart Intake Note: patient here for ER follow up Skill Training Program Coordinator Required: No Is last menstrual period known: Yes Last menstrual period: 04/28/24 Post menopausal: No Patient : No Allergies dyes Adverse Reaction (Severe, Uncoded 05/27/24 13:26) 3rd degree haskins fragrance Adverse Reaction (Severe, Uncoded 05/27/24 13:26) Haskins inks Adverse Reaction (Severe, Uncoded 05/27/24 13:26) Haskins Medication List - Last Reconciled 05/27/24 by Logan Garcia CNP escitalopram oxalate (Lexapro) 10 mg PO DAILY 30 days indomethacin 50 mg PO TID PRN naproxen 500 mg PO BID PRN Tobacco use date assessed: 05/27/24 Dental Screening Dental Screen Date: 05/27/24 Did you have a dental visit in the last 12 months?: Yes Did you have a dental problem in the last 6 months where you did not have access to dental care?: No Was dental information given to patient?: Patient has dentist HPI HPI Comments History of Present Illness Details 39-year-old female presents for an ED discharge follow-up visit She was evaluated at [facility] on 05/20/2024 for atraumatic right thumb pain and swelling. X-ray revealed calcification that is consistent with gout. Bedside ultrasound did not show fluid collection. She was prescribed indomethacin 50 mg 3 times daily as needed She notes that the pain and swelling to her right thumb has significantly improved. Her right thumb was almost 3 times larger than the left. She experiences pain only with palpation of the DIP of the right thumb She notes that she has been struggling to lose weight over the past years despite maintaining a healthy lifestyle. She admits to exercising routinely and making healthy dietary choices. Her goal is to lose 30 lb. She requests a GLP-1 receptor agonist for weight loss. She denies history of pancreatitis or a personal or family history of medullary thyroid cancer or multiple endorcine neoplasia [facility] Medical History Right arm pain Migraine delivery delivered Anxiety PTSD (post-traumatic stress disorder) Memory loss Back problem Arthritis Surgical History Status post fusion of wrist H/O tubal ligation Family History Mother High cholesterol Father Clotting disorder Alcoholism Psychiatric disorder Paternal Grandmother Clotting disorder Paternal Grandfather Clotting disorder Family/Other Asthma Other Mental health disorder Substance abuse Social History Household Members: Family Both parents involved: No Caregiver staying overnight: No Housing: House Are you a primary career information specialist to a significant other at home: No Do you presently have visiting nurse or other home services: No 75 years or older and lives alone: No Alcohol intake: never Patient Tobacco Use Status: Never used Tobacco e-Cigarette/Vaping Use: Never Used Second Hand Smoke Exposure: No service: Yes Current occupational status: 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 1. Little interest or pleasure in doing things: not at all 2. Feeling down, depressed, or hopeless: not at all 3. Trouble falling or staying asleep, or sleeping too much: not at all 4. Feeling tired or having little energy: not at all 5. Poor appetite or overeating: not at all 6. Feeling bad about yourself - or that you are a failure or have let yourself or your family down: not at all 7. Trouble concentrating on things, such as reading the newspaper or watching television: not at all 8. Moving or speaking so slowly that other people could have noticed. Or the opposite - being so fidgety or restless that you have been moving around a lot more than usual: not at all 9. Thoughts that you would be better off or of hurting yourself in some way: not at all Total score: 0 Depression Screening Interpretation: Negative Depression Screening Done: Yes 88841 - PHQ-9 Billing: Yes Source: Developed by Drs. Adonay Amaya, Louann Brito, Darien Zarco and colleagues, with an educational dee from [employer]. Thrive Questionnaire Date Thrive assessed: 05/27/24 I am a: Patient What is your living situation today?: I have a steady place to live Within the past 12 months, did the food you bought not last and you didn't have the money to get more?: Never true Within the past 12 months, did you worry whether your food would run out before you got money to buy more?: Never true Do you have trouble paying for medicines?: No Do you have trouble getting transportation to medical appointments?: No Do you have trouble paying your heating and electricity bill?: No Do you have trouble taking care of your child, family member or friend?: No Do you have trouble with day-to-day activities such as bathing, preparing meals, shopping, managing finances, etc.?: No Are you currently unemployed and looking for a job?: No Are you interested in more education?: No Please select the resources that you would like help with: None Currently or been in a relationship where the following occur: No concerns reported THRIVE Score: 0 AUDIT C Alcohol Use Questionnaire (AUDIT-C) 1. How often do you have a drink containing alcohol?: Monthly or less 2. How many drinks containing alcohol do you have on a typical day when you are drinking?: 1 or 2 3. How often do you have six or more drinks on one occasion?: Never Total Score: 1 ESTER-7 AMB Questionnaire ESTER-7 Date ESTER - 7 assessed: 05/27/24 Feeling nervous, anxious, or on edge: 1 = Several days Not being able to stop or control worryin = Not at all Worrying too much about different things: 0 = Not at all Trouble relaxin = Not at all Being so restless that it is hard to sit still: 1 = Several days Becoming easily annoyed or irritable: 1 = Several days Feeling afraid as if something awful might happen: 0 = Not at all Total ESTER-7 score (0-4 normal; 5-9 mild; 10-14 moderate; 15-21 severe): 3 Source: Developed by Louann Leary Kurt Kroenke and colleagues, with an educational dee from [employer]. ESTER-7 Assessment Billing ESTER-7 Assessment Tool: ESTER-7 Assessment 97516 Review of Systems Const Details: Const Denies chills, Denies fatigue, Denies fever(s), Denies headache(s) and Denies weakness ENT Denies dizziness and Denies headache(s) Card Denies chest pain, Denies lightheadedness, Denies dyspnea and Denies other (Palpitations) Resp Denies cough, Denies dyspnea, Denies wheezing and Denies other ( shortness of breath) GI Denies abdominal pain, Denies melena, Denies hematochezia, Denies change in bowel habits, Denies dyspepsia and Denies nausea Denies hematuria and Denies dysuria Musc Reports as per HPI Skin/Breast Denies rash, Denies unusual bruising and Denies wounds Neuro Denies abnormal gait, Denies dizziness, Denies headache(s), Denies memory loss, Denies numbness, Denies Sensory deficit (Neuro), Denies tingling and Denies weakness Psych Denies anxiety, Denies depression, Denies memory loss Endo Denies cold intolerance, Denies fatigue, Denies heat intolerance, Denies polydipsia and Denies polyuria Aller/Immun Denies wheezing Physical exam (Primary Care) Vital Signs: Last Vital Signs Temp 98.1 F 05/27/24 13:16 Pulse 62 05/27/24 13:16 Resp 16 05/27/24 13:16 BP 108/78 05/27/24 13:16 Pulse Ox 100 05/27/24 13:16 Oxygen Delivery Method Room Air 05/27/24 13:16 BMI result Body Mass Index 29.2 Tobacco/Smoking Status: Tobacco use Status Tobacco use date assessed 05/27/24 05/27/24 13:18 Patient Tobacco Use Status Never used Tobacco 05/27/24 13:12 e-Cigarette/Vaping Use Never Used 05/27/24 13:12 PHQ-9: PHQ-9 Score PHQ-9: Total score 0 05/27/24 13:18 Depression Screening Interpretation: Negative Thrive Assessment: Date of Thrive Assessment Date Thrive assessed 05/27/24 05/27/24 13:18 Currently or been in a relationship where the following occur: No concerns reported Const Other: General: no acute distress and well developed Nutritional Appearance: well nourished Orientation/consciousness: patient oriented x3 HENMT Head: Yes normocephalic and Yes atraumatic Eyes General: appearance normal, both eyes and all related structures Pupils: Equal, round and reactive pupils present EOM: EOMs intact bilaterally Resp Effort & Inspection: normal respiratory effort Auscultation: clear to auscultation bilaterally Cardio Rate: regular rate Rhythm: regular rhythm Heart sounds: S1 normal heart sound present, S2 normal heart sound present, no gallops, no murmurs and no rubs GI Palpation (GI): No Abdominal aortic bruit present, Soft to palpation, nontender, No hepatosplenomegaly present and No Rebound tenderness present Auscultation: normal bowel sounds General: Yes no CVA tenderness Back/Spine/Pelvis Back: no CVA tenderness Cervical Spine: cervical ROM normal and No Cervical spine tenderness Thoracic/Lumbar Spine: thoraco-lumbar ROM normal, No pain with thoraco-lumbar ROM, No thoracic spinal tenderness and No lumbar spinal tenderness Extrem General: Yes normal to inspection, No edema and No calf tenderness Hand: Right thumb with slight edema. No erythema or overt injury/trauma. ROM and CML WNL Skin General: warm and dry. Normal skin color. Normal skin turgor Neuro General: patient oriented x3, gait normal and no focal neuro deficit Cranial nerves: Yes Equal, round and reactive pupils present Cognition (Neuro): normal cognition Gait exam (Neuro): Normal gait present Sensory Exam: No Sensory deficit (Neuro) Psych Appearance: grossly normal Affect: normal affect Attitude: cooperative Thought process: Normal thought process present Coding Level of Care Code Est Pt Level 4 (83038) Diagnoses Gout M10.9 Gout site: hand Hospital discharge follow-up Z09 Encounter for weight management Z76.89 Additional Codes ESTER-7 Assessment Billing - ESTER-7 Assessment Tool: ESTER-7 Assessment 42902 ([id number]) Assessment & Plan Assessment & Plan (1) Gout: Code(s): M10.9 - Gout, unspecified Category: Medical Qualifiers: Gout site: hand Plan: She reports significant improvement of pain and swelling of the right thumb. She experienced pain only with palpation of the DIP of the right thumb Right thumb with slight edema. No erythema or overt injury/trauma. ROM and CML WNL Continue to take indomethacin as prescribed and with meals. Advised to avoid taking naproxen when taking indomethacin as they are both NSAIDs. May apply cool compresses as needed. Follow-up with worsening or new symptoms. Verbalized understanding and agreed with the plan (2) Hospital discharge follow-up: Code(s): Z09 - Encounter for follow-up examination after completed treatment for conditions other than malignant neoplasm Category: Medical Plan: Plan as above (3) Encounter for weight management: Code(s): Z76.89 - Persons encountering health services in other specified circumstances Category: Medical Plan: She has been struggling to lose weight over the past years despite maintaining a healthy lifestyle. Her goal is to lose 30 lb. She requests a GLP-1 receptor agonist for weight loss. No history of pancreatitis or a personal or family history of medullary thyroid cancer or multiple endorcine neoplasia She currently weighs 181 lb, BMI is 29.2 Semaglutide 0.25 mg subQ weekly ordered. Advised to administer as prescribed. Instructed on the risks, benefits, and potential adverse reactions of the medications Routine exercise and adequate hydration encouraged Follow-up in 1 month or sooner with symptoms or concerns Verbalized understanding and agreed with the treatment plan Medications: New semaglutide (weight loss) administer weeks 1 through 4 of therapy 0.25 mg (0.5 mL) subcut QWEEK 2 mL 0RF
[2024-05-27 13:16] VITALS: BP 108/78; PULSE 62; RESP 16; TEMP 36.7; O2SAT 100; BMI 29.2
== END 2024-05-27 13:43 | disposition home or self-care (01) ==
LOC: HO.HMCFM 13:03
PROVIDERS: PCP Nurse Practitioner Family; Visit Provider Nurse Practitioner Family
DX: M10.9 Gout, unspecified (principal); Z09 Encounter for follow-up examination after completed treatment for conditions other than malignant neoplasm; Z76.89 Persons encountering health services in other specified circumstances

== ENCOUNTER → 2024-05-27 13:03 | Outpatient (BNVA) | payer OTHER, SELFPAY | PROVIDERS: PCP Nurse Practitioner Family; Visit Provider Nurse Practitioner Family | DX: Z09 Encounter for follow-up examination after completed treatment for conditions other than malignant neoplasm (principal); M10.9 Gout, unspecified; Z76.89 Persons encountering health services in other specified circumstances | CPT/HCPCS: 96127; 99212 ==

== ENCOUNTER 2024-06-02 11:31 | Outpatient (AMB) | payer OTHER, SELFPAY ==
--- NOTE | 2024-06-02 11:34 | A.OFFPC_ITS ---
Vital Signs 06/02/24 11:43 Height 5 ft 6 in Weight 180 lb 6 oz BMI 29.1 BP 100/68 Blood Pressure Location Lt brachial Position Sitting Respiration 16 Pulse 62 Pulse Source Pulse Oximeter Temp 98.1 F Temp Source Oral Pulse Oximetry (%) 99 Oxygen Delivery Method Room Air Intake Visit Reasons: MIGRAINE AND JAW PAIN Intake Note: patient here c/o migraine and jaw pain for months. Screw Remover Required: No Is last menstrual period known: Yes Last menstrual period: 05/28/24 Post menopausal: No Patient : No Allergies dyes Adverse Reaction (Severe, Uncoded 06/02/24 11:48) 3rd degree haskins fragrance Adverse Reaction (Severe, Uncoded 06/02/24 11:48) Haskins inks Adverse Reaction (Severe, Uncoded 06/02/24 11:48) Haskins Medication List - Last Reconciled 06/02/24 by Logan Garcia CNP escitalopram oxalate (Lexapro) 10 mg PO DAILY 30 days naproxen 500 mg PO BID PRN semaglutide (weight loss) 0.25 mg (0.5 mL) subcut QWEEK Tobacco use date assessed: 06/02/24 Dental Screening Dental Screen Date: 05/27/24 HPI HPI Comments History of Present Illness Details 39-year-old female presents with complai nts of intermittent generalized headache which started started 6 months ago. Her symptoms were initially once or twice weekly but have been occurring frequently, 3 times weekly, since she started experiencing right jaw pain 2 months ago. She admits to grinding her teeth while awake and asleep. She saw her dentist last when her jaw pain started and was told to follow up with her PCP. She also reports intermittent fatigue and intermittent shortness of breath especially upon waking up in the morning [facility] Medical History Right arm pain Migraine delivery delivered Anxiety PTSD (post-traumatic stress disorder) Memory loss Back problem Arthritis Surgical History Status post fusion of wrist H/O tubal ligation Family History Mother High cholesterol Father Clotting disorder Alcoholism Psychiatric disorder Paternal Grandmother Clotting disorder Paternal Grandfather Clotting disorder Family/Other Asthma Other Mental health disorder Substance abuse Social History Household Members: Family Both parents involved: No Caregiver staying overnight: No Housing: House Are you a primary primary care coordinator to a significant other at home: No Do you presently have visiting nurse or other home services: No 75 years or older and lives alone: No Alcohol intake: never Patient Tobacco Use Status: Never used Tobacco e-Cigarette/Vaping Use: Never Used Second Hand Smoke Exposure: No Patient : No service: Yes 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 Adonay Amaya, Louann Brito, Darien Zarco and colleagues, with an educational dee from [employer]. Review of Systems Const Details: Const Denies chills, Denies fatigue, Denies fever(s), Denies headache(s) and Denies weakness ENT Reports as per HPI Card Denies chest pain, Denies lightheadedness, Denies dyspnea and Denies other (Palpitations) Resp Denies cough, Denies dyspnea, Denies wheezing and Denies other ( shortness of breath) GI Denies abdominal pain, Denies melena, Denies hematochezia, Denies change in bowel habits, Denies dyspepsia and Denies nausea Denies hematuria and Denies dysuria Musc Denies abnormal gait, Denies myalgias, Denies arthralgias, Denies numbness and Denies tingling Skin/Breast Denies rash, Denies unusual bruising and Denies wounds Neuro Denies abnormal gait, Denies dizziness, Denies headache(s), Denies memory loss, Denies numbness, Denies Sensory deficit (Neuro), Denies tingling and Denies weakness Psych Denies anxiety, Denies depression, Denies memory loss Endo Denies cold intolerance, Denies fatigue, Denies heat intolerance, Denies polydipsia and Denies polyuria Aller/Immun Denies wheezing Physical exam (Primary Care) Vital Signs: Last Vital Signs Temp 98.1 F 06/02/24 11:43 Pulse 62 06/02/24 11:43 Resp 16 06/02/24 11:43 BP 100/68 06/02/24 11:43 Pulse Ox 99 06/02/24 11:43 Oxygen Delivery Method Room Air 06/02/24 11:43 BMI result Body Mass Index 29.1 Tobacco/Smoking Status: Tobacco use Status Tobacco use date assessed 06/02/24 06/02/24 11:41 Patient Tobacco Use Status Never used Tobacco 06/02/24 11:37 e-Cigarette/Vaping Use Never Used 06/02/24 11:37 Thrive Assessment: Date of Thrive Assessment Date Thrive assessed 05/27/24 06/02/24 11:37 Const Other: General: no acute distress and well developed Nutritional Appearance: well nourished Orientation/consciousness: patient oriented x3 HENMT Head is normocephalic Bilateral ear canal and TM are normal Nasal turbinates and oropharynx are pink and moist Sinuses are nontender with palpation No auricular or cervical lymphadenopathy Right TMJ tenderness with palpation and opening and closing of mouth Eyes General: appearance normal, both eyes and all related structures Pupils: Equal, round and reactive pupils present EOM: EOMs intact bilaterally Resp Effort & Inspection: normal respiratory effort Auscultation: clear to auscultation bilaterally Cardio Rate: regular rate Rhythm: regular rhythm Heart sounds: S1 normal heart sound present, S2 normal heart sound present, no gallops, no murmurs and no rubs GI Palpation (GI): No Abdominal aortic bruit present, Soft to palpation, nontender, No hepatosplenomegaly present and No Rebound tenderness present Auscultation: normal bowel sounds General: Yes no CVA tenderness Back/Spine/Pelvis Back: no CVA tenderness Extrem General: Yes normal to inspection, No edema and No calf tenderness Skin General: warm and dry. Normal skin color. Normal skin turgor Neuro General: patient oriented x3, gait normal and no focal neuro deficit Cranial nerves: Yes Equal, round and reactive pupils present Cognition (Neuro): normal cognition Gait exam (Neuro): Normal gait present Sensory Exam: No Sensory deficit (Neuro) Psych Appearance: grossly normal Affect: normal affect Attitude: cooperative Thought process: Normal thought process present Coding Level of Care Code Est Pt Level 4 (68568) Complex EM visit Add On G2211 Diagnoses TMJ tenderness, right M26.621 Headache R51.9 Fatigue R53.83 Assessment & Plan Assessment & Plan (1) TMJ tenderness, right: Code(s): M26.621 - Arthralgia of right temporomandibular joint Category: Medical Plan: Reports right jaw pain x2 months with associated increased frequency of generalized headache. She grinds her teeth while awake and asleep Right TMJ tenderness with palpation and opening and closing of mouth. No overt infection or trauma Naproxen 500 mg twice daily as needed ordered. Advised to take with food. Instructed on the risks, benefits, potential adverse reactions of the medication Advised to avoid chewing solid foods today affected side May use a mouth guard Follow-up with worsening or new symptoms Verbalized understanding and agreed with the treatment plan (2) Headache: Code(s): R51.9 - Headache, unspecified Category: Medical Plan: Plan as above (3) Fatigue: Code(s): R53.83 - Other fatigue Category: Medical Plan: Reports intermittent fatigue and intermittent shortness of breath especially upon waking up in the morning Will check routine labs and vitamin-D level. Will make changes as needed Routine exercise encouraged Follow-up with worsening or new symptoms Verbalized understanding and agreed with the treatment plan Orders: Orders Comprehensive [place]. Panel Fast Today R53.83 - Other fatigue TSH reflex Free T4 Today R53.83 - Other fatigue Vitamin D 25-OH Total Today R53.83 - Other fatigue Complete Blood Count Auto Diff Today R53.83 - Other fatigue Medications: Refilled naproxen 500 mg PO BID PRN 60 tabs 1RF pain
[2024-06-02 11:43] VITALS: BP 100/68; PULSE 62; RESP 16; TEMP 36.7; O2SAT 99; BMI 29.1
== END 2024-06-02 12:11 | disposition home or self-care (01) ==
LOC: HO.HMCFM 11:31
PROVIDERS: PCP Nurse Practitioner Family; Visit Provider Nurse Practitioner Family
DX: M26.621 Arthralgia of right temporomandibular joint (principal); R51.9 Headache, unspecified; R53.83 Other fatigue

== ENCOUNTER → 2024-06-02 11:31 | Outpatient (BNVA) | payer OTHER, SELFPAY | PROVIDERS: PCP Nurse Practitioner Family; Visit Provider Nurse Practitioner Family | DX: M26.621 Arthralgia of right temporomandibular joint (principal); R51.9 Headache, unspecified; R53.83 Other fatigue | CPT/HCPCS: 99212 ==

== ENCOUNTER 2024-06-02 12:36 | Outpatient (REF) | payer OTHER, SELFPAY ==
[2024-06-02 14:18] LABS: Appearance Urine Clear; Color Urine Yellow; Glucose Urine UA Negative (Negative); Leukocyte Esterase Urine Trace (Negative); Nitrite Urine Negative (Negative); PH 5.5 (5.0-9.0); Specific Gravity - Urine 1.025 (1.005-1.025); UMIC TRIGGER UACC YES; Urine Blood Trace (Negative); Urine Ketones Trace mg/dL (Negative); Urine Protein Negative (Neg-Trace)
[2024-06-02 14:28] LABS: MANUAL DIFF FLAG NO
[2024-06-02 14:28] LABS: Bacteria Urine Trace (None Seen); Hyaline Casts Urine 0-2 /LPF (0-2); WBC Urine 0-5 /HPF (0-5)
[2024-06-02 14:33] LABS: Basophils Percent Auto 0.4 % (0-2); Eosinophils Absolute Auto 0.1 X10*3/uL (0.0-0.4); Eosinophils Percent Auto 2.1 % (0-4); Hematocrit 38.2 % (37.0-47.0); Hemoglobin 12.7 g/dl (12.0-16.0); Imm Gran Abs Auto 0.02 X10*3/uL (0.00-0.03); Imm Gran Pct Auto 0.4 % (0.0-0.4); Lymphocytes Absolute Auto 1.6 X10*3/uL (1.2-4.9); Lymphocytes Percent Auto 33.1 % (20-40); Mean Corpuscular HGB Conc 33.2 g/dl (31.0-35.0); Mean Corpuscular Hemoglobin 30.2 pg (27.0-33.0); Mean Platelet Volume 9.6 fL (9.4-12.3); Monocytes Absolute Auto 0.4 X10*3/uL (0.1-1.2); Monocytes Percent Auto 7.8 % (2-11); Neutrophils Absolute Auto 2.7 x10*3/uL (2.0-8.3); Neutrophils Percent Auto 56.2 % (45-73); Platelet Count 419 X10*3/uL (160-400); Red Cell Distribution Width 13.4 % (11.0-16.0); White Blood Count 4.7 X10*3/uL (4.8-10.8)
[2024-06-02 15:07] LABS: Alanine Aminotransferase 26 U/L (0-31); Albumin Level 4.4 g/dL (3.5-5.0); Alkaline Phosphatase 53 U/L (39-117); Anion Gap 9 (12-20); Aspartate Amino Transferase 25 U/L (5-31); Bilirubin Total 0.9 mg/dL (0.0-1.0); Blood Urea Nitrogen 15 mg/dL (9-16); Calcium 9.3 mg/dL (8.4-10.2); Carbon Dioxide 27 mmol/L (22-29); Chloride 106 mmol/L (96-108); Estimated Glomerular Filt Rate > 60; Glucose Fasting 94 mg/dL (60-99); Potassium 3.9 mmol/L (3.3-5.1); Sodium 138 mmol/L (135-145); Total Protein 7.9 g/dL (6.5-8.0)
[2024-06-02 15:11] LABS: TSH reflex Free T4 0.89 uIU/mL (0.32-4.0); Vitamin D 25-OH Total 27.1 ng/mL (>30)
== END 2024-06-02 12:37 | disposition home or self-care (01) ==
LOC: HO.WFDLDS 12:36
PROVIDERS: Visit Provider Nurse Practitioner Family
DX: R53.83 Other fatigue (principal)
CPT/HCPCS: 36415; 80053; 81001; 82306; 84443; 85025

== ENCOUNTER 2024-06-28 10:49 | Outpatient (AMB) | payer OTHER, SELFPAY ==
--- NOTE | 2024-06-28 10:53 | A.OFFPC_ITS ---
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 Is last menstrual period known: Yes Last menstrual period: 06/21/24 Post menopausal: No Patient : No Allergies dyes Adverse Reaction (Severe, Uncoded 06/28/24 11:09) 3rd degree haskins fragrance Adverse Reaction (Severe, Uncoded 06/28/24 11:09) Haskins inks Adverse Reaction (Severe, Uncoded 06/28/24 11:09) [place]askins Medication List - Last Reconciled 06/28/24 by Logan Garcia CNP cholecalciferol (vitamin D3) 25 mcg PO DAILY 30 days escitalopram oxalate (Lexapro) 10 mg PO DAILY 30 days naproxen 500 mg PO BID PRN semaglutide (weight loss) 0.25 mg (0.5 mL) subcut QWEEK Tobacco use date assessed: 06/28/24 Dental Screening Dental Screen Date: 06/28/24 Did you have a dental visit in the last 12 months?: Yes Did you have a dental problem in the last 6 months where you did not have access to dental care?: No Was dental information given to patient?: Patient has dentist HPI HPI Comments History of Present Illness Details 39-year-old female presents for anxiety and depression follow-up. She reports controlled anxiety and depressive symptoms on current treatment regimen. She reports difficulty breathing while recently performing physical exercise at work. She notes the her symptoms may be related to anxiety. She denies acute symptoms at this time. [facility] Medical History Right arm pain Migraine delivery delivered Anxiety PTSD (post-traumatic stress disorder) Memory loss Back problem Arthritis Surgical History Status post fusion of wrist H/O tubal ligation Family History Mother High cholesterol Father Clotting disorder Alcoholism Psychiatric disorder Paternal Grandmother Clotting disorder Paternal Grandfather Clotting disorder Family/Other Asthma Other Mental health disorder Substance abuse Social History Household Members: Family Both parents involved: No Caregiver staying overnight: No Housing: House Are you a primary certified social workers in health care to a significant other at home: No Do you presently have visiting nurse or other home services: No 75 years or older and lives alone: No Alcohol intake: never Patient Tobacco Use Status: Never used Tobacco e-Cigarette/Vaping Use: Never Used Second Hand Smoke Exposure: No service: Yes Current occupational status: 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 1. Little interest or pleasure in doing things: not at all 2. Feeling down, depressed, or hopeless: not at all 3. Trouble falling or staying asleep, or sleeping too much: several days 4. Feeling tired or having little energy: nearly every day 5. Poor appetite or overeating: several days 6. Feeling bad about yourself - or that you are a failure or have let yourself or your family down: not at all 7. Trouble concentrating on things, such as reading the newspaper or watching television: several days 8. Moving or speaking so slowly that other people could have noticed. Or the opposite - being so fidgety or restless that you have been moving around a lot more than usual: not at all 9. Thoughts that you would be better off or of hurting yourself in some way: not at all Total score: 6 Depression Screening Interpretation: Positive Depression Screening Follow-up: Existing condition and In treatment Depression Screening Done: Yes 34094 - PHQ-9 Billing: Yes Source: Developed by Drs. Adonay Amaya, Louann Brito, Darien Zarco and colleagues, with an educational dee from [employer]. Thrive Questionnaire Date Thrive assessed: 06/28/24 I am a: Patient What is your living situation today?: I have a steady place to live Within the past 12 months, did the food you bought not last and you didn't have the money to get more?: Never true Within the past 12 months, did you worry whether your food would run out before you got money to buy more?: Never true Do you have trouble paying for medicines?: No Do you have trouble getting transportation to medical appointments?: No Do you have trouble paying your heating and electricity bill?: No Do you have trouble taking care of your child, family member or friend?: No Do you have trouble with day-to-day activities such as bathing, preparing meals, shopping, managing finances, etc.?: No Are you currently unemployed and looking for a job?: No Are you interested in more education?: No Please select the resources that you would like help with: None Currently or been in a relationship where the following occur: No concerns reported THRIVE Score: 0 AUDIT C Alcohol Use Questionnaire (AUDIT-C) 1. How often do you have a drink containing alcohol?: Never Total Score: 0 Score Reviewed/Action Taken: Yes ESTER-7 AMB Questionnaire ESTER-7 Date ESTER - 7 assessed: 06/28/24 Feeling nervous, anxious, or on edge: 1 = Several days Not being able to stop or control worryin = Not at all Worrying too much about different things: 0 = Not at all Trouble relaxin = Several days Being so restless that it is hard to sit still: 1 = Several days Becoming easily annoyed or irritable: 2 = More than half the days Feeling afraid as if something awful might happen: 0 = Not at all Total ESTER-7 score (0-4 normal; 5-9 mild; 10-14 moderate; 15-21 severe): 5 Source: Developed by Drs. Adonay Amaya, Louann Brito, Darien Zarco and colleagues, with an educational dee from [employer]. ESTER-7 Assessment Billing ESTER-7 Assessment Tool: ESTER-7 Assessment 04181 Review of Systems Const Details: Const Denies chills, Denies fatigue, Denies fever(s), Denies headache(s) and Denies weakness ENT Denies dizziness and Denies headache(s) Card Denies chest pain, Denies lightheadedness, Denies dyspnea and Denies other (Palpitations) Resp Denies cough, Denies dyspnea, Denies wheezing and Denies other ( shortness of breath) GI Denies abdominal pain, Denies melena, Denies hematochezia, Denies change in bowel habits, Denies dyspepsia and Denies nausea Denies hematuria and Denies dysuria Musc Denies abnormal gait, Denies myalgias, Denies arthralgias, Denies numbness and Denies tingling Skin/Breast Denies rash, Denies unusual bruising and Denies wounds Neuro Denies abnormal gait, Denies dizziness, Denies headache(s), Denies memory loss, Denies numbness, Denies Sensory deficit (Neuro), Denies tingling and Denies weakness Psych Denies anxiety, Denies depression, Denies memory loss Endo Denies cold intolerance, Denies fatigue, Denies heat intolerance, Denies polydipsia and Denies polyuria Aller/Immun Denies wheezing Physical exam (Primary Care) Vital Signs: Last Vital Signs Temp 97.9 F 06/28/24 10:59 Pulse 72 06/28/24 10:59 Resp 16 06/28/24 10:59 BP 106/62 06/28/24 10:59 Pulse Ox 99 06/28/24 10:59 Oxygen Delivery Method Room Air 06/28/24 10:59 BMI result Body Mass Index 29.5 Tobacco/Smoking Status: Tobacco use Status Tobacco use date assessed 06/28/24 06/28/24 11:03 Patient Tobacco Use Status Never used Tobacco 06/28/24 10:57 e-Cigarette/Vaping Use Never Used 06/28/24 10:57 PHQ-9: PHQ-9 Score PHQ-9: Total score 6 06/28/24 11:03 Depression Screening Interpretation: Positive Depression Screening Follow-up: Existing condition and In treatment Thrive Assessment: Date of Thrive Assessment Date Thrive assessed 06/28/24 06/28/24 10:57 Currently or been in a relationship where the following occur: No concerns reported Const Other: General: no acute distress and well developed Nutritional Appearance: well nourished Orientation/consciousness: patient oriented x3 HENMT Head: Yes normocephalic and Yes atraumatic Eyes General: appearance normal, both eyes and all related structures Pupils: Equal, round and reactive pupils present EOM: EOMs intact bilaterally Resp Effort & Inspection: normal respiratory effort Auscultation: clear to auscultation bilaterally Cardio Rate: regular rate Rhythm: regular rhythm Heart sounds: S1 normal heart sound present, S2 normal heart sound present, no gallops, no murmurs and no rubs GI Palpation (GI): No Abdominal aortic bruit present, Soft to palpation, nontender, No hepatosplenomegaly present and No Rebound tenderness present Auscultation: normal bowel sounds General: Yes no CVA tenderness Back/Spine/Pelvis Back: no CVA tenderness Cervical Spine: cervical ROM normal and No Cervical spine tenderness Thoracic/Lumbar Spine: thoraco-lumbar ROM normal, No pain with thoraco-lumbar ROM, No thoracic spinal tenderness and No lumbar spinal tenderness Extrem General: Yes normal to inspection, No edema and No calf tenderness Skin General: warm and dry. Normal skin color. Normal skin turgor Lesions: no lesions Rashes: no rashes Trauma: no lacerations or abrasions Wounds: no wounds Nails: normal Neuro General: patient oriented x3, gait normal and no focal neuro deficit Cranial nerves: Yes Equal, round and reactive pupils present Cognition (Neuro): normal cognition Gait exam (Neuro): Normal gait present Sensory Exam: No Sensory deficit (Neuro) Psych Appearance: grossly normal Affect: normal affect Attitude: cooperative Thought process: Normal thought process present Coding Level of Care Code Est Pt Level 4 (72788) Diagnoses Anxiety and depression F41.9; F32.A Vitamin D deficiency E55.9 Exercise-induced bronchospasm J45.990 Additional Codes ESTER-7 Assessment Billing - ESTER-7 Assessment Tool: ESTER-7 Assessment 08813 ([id number]) PHQ-9 - 99036 - PHQ-9 Billing: Yes ([id number]) Assessment & Plan Assessment & Plan (1) Anxiety and depression: Code(s): F41.9 - Anxiety disorder, unspecified; F32.A - Depression, unspecified Category: Medical Plan: PHQ-9 and ESTER-7 scores revealed mild depression and anxiety Continue current treatment regimen Routine exercise encouraged Follow-up in 3 months or sooner symptoms or concerns Verbalized understanding and agreed with the treatment plan. (2) Vitamin D deficiency: Code(s): E55.9 - Vitamin D deficiency, unspecified Category: Medical Plan: Continue current treatment regimen Advised to get vitamin-D blood work done before her next visit Verbalized understanding and agreed with the plan (3) Exercise-induced bronchospasm: Code(s): J45.990 - Exercise induced bronchospasm Category: Medical Plan: May be related to anxiety Continue anxiety treatment regimen Take albuterol inhaler as prescribed before exercise Follow-up with worsening or new symptoms Verbalized understanding and agreed with the treatment plan Orders: Orders Vitamin D 25-OH Total Today E55.9 - Vitamin D deficiency, unspecified Medications: New albuterol sulfate 90 mcg/actuation 2 puffs inhalation Q4-6H PRN 8.5 grams 3RF shortness of breath or wheezing
[2024-06-28 10:59] VITALS: BP 106/62; PULSE 72; RESP 16; TEMP 36.6; O2SAT 99; BMI 29.5
== END 2024-06-28 11:16 | disposition home or self-care (01) ==
PROVIDERS: PCP Nurse Practitioner Family; Visit Provider Nurse Practitioner Family
DX: F41.9 Anxiety disorder, unspecified (principal); F32.A Depression, unspecified; E55.9 Vitamin D deficiency, unspecified; J45.990 Exercise induced bronchospasm

== ENCOUNTER → 2024-06-28 10:49 | Outpatient (BNVA) | payer OTHER, SELFPAY | PROVIDERS: PCP Nurse Practitioner Family; Visit Provider Nurse Practitioner Family | DX: F41.9 Anxiety disorder, unspecified (principal); F32.A Depression, unspecified; E55.9 Vitamin D deficiency, unspecified; J45.909 Unspecified asthma, uncomplicated | CPT/HCPCS: 96127; 99212 ==

== ENCOUNTER 2024-06-28 11:45 | Outpatient (REF) | payer OTHER, SELFPAY ==
[2024-06-28 16:11] LABS: Vitamin D 25-OH Total 21.4 ng/mL (>30)
== END 2024-06-28 11:46 | disposition home or self-care (01) ==
LOC: HO.WFDLDS 11:45
PROVIDERS: Visit Provider Nurse Practitioner Family
DX: E55.9 Vitamin D deficiency, unspecified (principal)
CPT/HCPCS: 36415; 82306

== ENCOUNTER 2024-07-12 16:03 | Outpatient (AMB) | payer OTHER, SELFPAY ==
--- OUTSIDE RECORDS SUMMARY | 2024-07-12 16:06 | XMS_ITS | Continuity of Care Document ---
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 It does not include entries that were removed or entered in error. 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 will return to PT for more intense therapy. patient explained [facility] pathophysioogy and treatment Ambulatory Pharmacy Regular astigmatism, left eye Active Condition Ambulatory Pharmacy Sprain of thumb Active Condition Ambula tory Pharmacy Synovitis/tenosyn ovitis - hand2 Active Condition Outside [facility] Comment: sent to PTJonathon MORRIS. change antiinflamatory. follow up 3 weeks pendingphysical therapy Ambulatory Pharmacy Tendinitis3 Active Condition Outside Source Comment: Ongoing care at [facility] ortho Ambulatory Pharmacy Tenosynovitis4 Active Condition Outsi de Source Comment: L wrist- appt w/ hand surgeon pending January 01, 2006- pt will f/u w/ us after this appt complete.\r\n Ambulatory Pharmacy Thoracic spondylosis Active Condition Ambulatory Pharmacy Tortuous retinal vein Active Condition Ambulatory Pharmacy Vesicular eczema5 Active Condition Ou tside Source Comment: eucerin or cetaphil cream/lotion to area after each hand washing if not improved 2 weeks with steroid and moisture, RTC Ambulatory Pharmacy Bipolar Disorder, unspecified (ICD-9-CM 296.80) Active Condition [facility] Chondromalacia of patella Active Condition [facility] CONSTIPATION, unspecified (ICD-9-CM 564.00) Active Condition [facility] Eczema * (ICD-9-CM 692.9) [address] [facility] Kienboeck's Disease (ICD-9-CM 732.3) Active Condition [facility] Muscle Spasm (ICD-9-CM 728.85) Active Condition [facility] Other and unspecified Bipolar disorders, other (ICD-9-CM 296.89) Active Condition [facility] Other tenosynovitis of hand and wrist Active Condition [facility] Acute upper respiratory infection, unspecified Active Condition [facility] Other spondylosis, lumbar region Active Condition DoD Other spondylosis, thoracic region Active Condition [facility] Other low back pain Active Condition [facility] Other chronic pain Active Condition [facility] Other dorsalgia Active Condition [facility] Major depressive disorder, single episode, in partial remission Active Condition [facility] finger sprain left thumb Active Condition [facility] Cognitive Skills - Orientation / Awareness Training Inactive Condition [facility] visit for: services physical Inactive Condition Pt NOT cleared for separation- will need re-eval prior to separation date to determine if med hold required. [facility] tendonitis Active Condition Ongoing c are at [facility] ortho [facility] midback pain Inactive Condition As pain has been present over 1 year and patient preparing to separate- xrays were ordered and consult placed for ortho. [facility] visit for: issue repeat prescription Inactive Condition [facility] dyshidrosis Active Condition eucerin or cetaphil cream/lotion to area after each hand washingif not improved 2 weeks with steroid and moisture, RTC [facility] tenosynovitis Active Condition L wris t- appt w/ hand surgeon pending January 01, 2006- pt will f/u w/ us after this appt complete. [facility] synovitis and tenosynovitis hand/wrist Active Condition sent to PT. PK Voss change antiinflamatory. follow up 3 weeks pendingphysical therapy [facility] joint pain, localized in the wrist Inactive Condition resolved [facility]D patellofemoral syndrome Active Condition patient tried home exercises without success. will return to PT for more intense therapy. [facility] pathophysioogy and treatment [facility] Need For Vaccination Against Single Disease Inactive Condition [facility] Medications Combined list of outpatient medications from Department of Defense and Veterans Affairs facilities.Medications provided include 1) outpatient medications from the last 15 months, and 2) patient-reported medications. Medication Details Route Status Patient Instructions Prescription Expires Prescription Number Last Dispense Date Ordering Provider Order Date Order Qty Source acetaminoph en 500 mg oral tablet 40 tab(s), 0 total refill(s ), Soft Stop Discont inued 06/04/[address] [place] [address] Adult Cough DM 20 mg-200 mg/10 mL oral liquid 1 unknown unit, 0 total refill(s ), Soft Stop Discont inued 06/04/[address] [place] [address] azelastine 137 mcg/inh (0.1%) nasal spray NASAL, 1 Refill(s ), 0 total refill(s ), Soft Stop Ordered [address] [place] [address] azithromyci n 250 mg oral tablet 6 tab(s), 0 total refill(s ), Soft Stop Discont inued 06/04/[address] [place] [address] Benadryl 25 mg oral capsule 1 cap(s), Oral, TID, PRN allergy symptoms , # 24 cap(s), 0 total refill(s ), Acute, 09/27/22 11:00:00 PM [employer]IST, 1 cap(s) Oral TID,PRN: allergy symptoms , Pharmacy : [facility] Oral (given by mouth) Complet ed 09/28/[address] [place] [address] betamethaso ne dipropionat e 0.05% topical cream 1 appl(s), Topical, BID, # 15 g, 0 total refill(s ), Acute, 1 appl(s) Topical BID, Pharmacy : [facility] Topica l (on the skin) Complet ed 08/24/[address] [place] [address] betamethaso ne valerate 0.1% topical cream 15 g, 0 total refill(s ), Soft Stop Ordered [address] [place] [address] clonazePAM 0.5 mg oral tablet 15 tab(s), 0 total refill(s ), Soft Stop Discont inued 07/09/[address] [place] [address] cyclobenzap rine 10 mg oral tablet 30 EA, TAKE 1 TABLET BY MOUTH THREE TIMES DAILY FOR 10 DAYS NEEDED FOR SPASM, 0 total refill(s ), Soft Stop Ordered [address] [place] [address] dextrometho diamante-pietro enesin 20 mg-200 mg/10 mL oral liquid TAKE 1 TABLESPO ON BY MOUTH EVERY 4 HOURS NEEDED FOR COUGH, # 1 mL, 1 total refill(s ), Acute Discont inued 05/20/2022 1.0 Ambulat ory Pharmac y diazePAM 10 mg oral tablet 2 Unknown, Unknown, 1 Refill(s ), 0 total refill(s ), Soft Stop Discont inued 07/09/[address] [place] [address] escitalopra m 5 mg oral tablet 30 tab(s), 0 total refill(s ), Soft Stop Discont inued 09/29/[address] [place] [address] ESCITALOPRA M OXALATE (escitalopr am oxalate), 10 MG, TABLET, ORAL, [facility], 100 ea. BOTTLE Cancele d [id number] : 2023 0 Pharmac y Data Transac tion Service Facilit y ESCITALOPRA M OXALATE (escitalopr am oxalate), 10 MG, TABLET, ORAL, [facility], 100 ea. BOTTLE Active [id number] 4 2023 30 Pharmac y Data Transac tion Service Facilit y ESCITALOPRA M OXALATE (escitalopr am oxalate), 10 MG, TABLET, ORAL, [facility], 100 ea. BOTTLE Cancele d [id number] : 2023 0 Pharmac y Data Transac tion Service Facilit y ESCITALOPRA M OXALATE (escitalopr am oxalate), 10 MG, TABLET, ORAL, [facility], 100 ea. BOTTLE Active [id number] 3 2022 30 Pharmac y Data Transac tion Service Facilit y ESCITALOPRA M OXALATE (escitalopr am oxalate), 10 MG, TABLET, ORAL, [facility], 100 ea. BOTTLE Active [id number] 4 2023 30 Pharmac y Data Transac tion Service Facilit y famotidine 20 mg oral tablet 30 tab(s), 0 total refill(s ), Soft Stop Ordered [address] [place] [address] Flexeril 10 mg oral tablet 1 tab(s), Oral, TID, # 30 tab(s), 0 total refill(s ), Acute, 1 tab(s) Oral TID, Pharmacy : [facility] Oral (given by mouth) Discont inued 07/09/[address] [place] [address] FLUCELVAX QUAD [id number] (flu vaccine quad (4 years and older)cell derived/PF) , 60MCG/.5ML FLUCELVA X QUAD 0 (flu vaccine quad 0(4 years and older)ce ll derived/ PF), 60MCG/.5 ML Start Date: 05/06/19 Stop Date: 05/20/22 Status: Disconti nued Discont inued 05/20/2022 No Facilit y Access fluconazole 150 mg oral tablet 2 Unknown, Unknown, 1 Refill(s ), 0 total refill(s ), Soft Stop Discont inued 07/09/[address] [place] [address] gabapentin 300 mg oral capsule 30 EA, TAKE 1 CAPSULE BY MOUTH TWICE DAILY, 0 total refill(s ), Soft Stop Discont inued 07/09/[address] [place] [address] hydrOXYzine hydrochlori de 50 mg oral tablet 2 Unknown, Unknown, 1 Refill(s ), 0 total refill(s ), Soft Stop Discont inued 09/29/[address] [place] [address] ibuprofen 200 mg oral tablet 200 Unknown, ORAL, 1 Refill(s ), 0 total refill(s ), Soft Stop Discont inued 09/09/[address] [place] [address] ibuprofen 600 mg oral tablet 30 EA, TAKE 1 TABLET BY MOUTH EVERY 6 HOURS NEEDED FOR PAIN, 0 total refill(s ), Soft Stop Discont inued 07/09/2022 [facility] ibuprofen 800 mg oral tablet 1 tab(s), Oral, every 8 hr, # 40 tab(s), 0 total refill(s ), Acute, 09/01/22 11:00:00 PM [employer]IST, 1 tab(s) Oral every 8 hr, Pharmacy : [facility] Oral (given by mouth) Complet ed 09/02/2022 40.0 [facility] ibuprofen 800 mg oral tablet 30 EA, TAKE 1 TABLET BY MOUTH EVERY 8 HOURS, 0 total refill(s ), Soft Stop [facility] KlonoPIN 0.5 mg oral tablet 1 tab(s), Oral, Daily, # 15 tab(s), 0 total refill(s ), Maintena nce, 1 tab(s) Oral Daily, Pharmacy : [facility] Oral (given by mouth) Ordered 15.0 [facility] Lexapro 5 mg oral tablet 1 tab(s), Oral, Daily, # 30 tab(s), 1 total refill(s ), Maintena nce, 1 tab(s) Oral Daily, Pharmacy : [facility] Oral (given by mouth) Ordered 30.0 [facility] lidocaine 5% topical film 30 patch(es ), 0 total refill(s ), Soft Stop Discont inued 09/29/2022 [facility] Lidoderm 5% topical film 1 patch(es ), Topical, Daily, Leave on for up to 12 hours within a 24 hour period (12 hours on, 12 hours off), # 30 patch(es ), 3 total refill(s ), Maintena nce, 1 patch(es ) Topical Daily,In str:Leav e on for up to 12 hours within a 24 hour period (12 hours on, 12 hours off), Pharmacy : [facility] Topica l (on the skin) Ordered 30.0 [facility] methocarbam ol 500 mg oral tablet 30 EA, TAKE 1 TABLET BY MOUTH EVERY 8 HOURS, 0 total refill(s ), Soft Stop Ordered [facility] methylPREDN ISolone 4 mg oral tablet methylPR EDNISolo ne 4 mg oral tablet Start Date: 01/09/20 Stop Date: 05/20/22 Status: Disconti nued Discont inued 05/20/2022 No Facilit y Access metroNIDAZO LE 500 mg oral tablet 500 Unknown, ORAL, 1 Refill(s ), 0 total refill(s ), Soft Stop Discont inued 09/29/2022 [facility] miscellaneo us medication 45 g, 0 total refill(s ), Soft Stop Discont inued 09/29/[address] [place] [address] MULTIVITAMI NS TAB TAKE BY MOUTH ORAL ACTIVE Lonnie [employer]SC[employer] Cruz 2006 [facility] naproxen 500 mg oral delayed release tablet 1 tab(s), Oral, BID, # 60 tab(s), 0 total refill(s ), Acute, 07/09/22 6:27:00 AM [employer]IST, 1 tab(s) Oral BID, Pharmacy : [facility] Oral (given by mouth) Discont inued 07/09/[address] [place] [address] naproxen 500 mg oral tablet naproxen 500 mg oral tablet Start Date: 09/16/19 Stop Date: 06/04/22 Status: Complete d Complet ed 06/04/2022 No Facilit y Access Nitrofurant oin ([employer]) 100 CAPSULE in 1 BOTTLE Active [id number] 4 2023 10 Pharmac y Data Transac tion Service Facilit y oxyCODONE-a cetaminophe n 5mg-325mg oral tablet 2 Unknown, Unknown, 1 Refill(s ), 0 total refill(s ), Soft Stop Discont inued 06/04/2022 [facility] Paxlovid 300 mg-100 mg Dose Pack ORAL, 1 Refill(s ), 0 total refill(s ), Soft Stop Discont inued 09/29/[address] [place] [address] phentermine 37.5 mg oral capsule 1 cap(s), Oral, Daily, X 30 days, # 30 cap(s), 0 total refill(s ), Acute, BMI 32.17, 1 cap(s) Oral Daily,x3 0 days, Pharmacy : [id number] Oral (given by mouth) Complet ed 10/25/[address] [place] [address] ProAir HFA 90 mcg/inh inhalation aerosol RESPIRAT ORY (INHALAT ION), 1 Refill(s ), 0 total refill(s ), Soft Stop Ordered [address] [place] [address] pseudoePHED rine 30 mg oral tablet 24 tab(s), 0 total refill(s ), Soft Stop Discont inued 06/04/[address] [place] [address] Sore Throat 15 mg-3.6 mg mucous membrane lozenge 18 lozenge( s), 0 total refill(s ), Soft Stop Discont inued 07/09/[address] [place] [address] SULFAMETHOX AZOLE-TRIME THOPRIM (SULFAMETHO XAZOLE/TRIM ETHOPRIM), 800-160MG, TABLET, ORAL, [facility], 500 ea. BOTTLE Active [id number] 4 2023 6 Pharmac y Data Transac tion Service Facilit y sulindac 200 mg oral tablet 200 Unknown, ORAL, 1 Refill(s ), 0 total refill(s ), Soft Stop Discont inued 07/09/[address] [place] [address] triamcinolo ne 0.1% topical cream 2 Unknown, Unknown, 1 Refill(s ), 0 total refill(s ), Soft Stop Discont inued 09/29/[address] [place] [address] Allergies, Adverse Reactions, Alerts Combined list of allergies from Department of Defense and Veterans Affairs facilities. It does not include entries that were removed or entered in error. Substance Category Reaction Severity Reaction type Status Date Reported Comments Source No Known Allergies Drug allergy (disorder) active 03/06/2006 DoD Immunizations Combined list of available immunizations from the Department of Defense and Veterans Affairs facilities. Immunization Series Date Given Administered By Site Reaction Lot Number CVX Code Drug Pit Manager Status Comments Source influenza, seasonal, injectable 2021 ROXANAMATOS [id number] complet ed Result Comment: Route: Unknown Manufactu rer: [facility] (SEQ) [facility] tetanus-dipht h toxoids (Td) adult/adol 2021 ROXANAMATOS [id number] complet ed Result Comment: Route: Unknown Manufactu rer: [facility] (PMC) [facility] wer tetanus and diphtheria toxoids, adsorbed, preservative free, for adult use (2 Lf of tetanus toxoid and 2 Lf of diphtheria toxoid) 2 2021 [id number] Sanofi Pasteur (PMC) complet ed tetanus and diphtheri a toxoids, adsorbed, preservat stefania free, for adult use (2 Lf of tetanus toxoid and 2 Lf of diphtheri a toxoid) [facility] SARS-COV-2 (COVID-19) vaccine, vector non-replicati ng, recombinant spike protein-Ad26, preservative free, 0.5 mL 1 2021 212 Marco A (JSN) comple t ed SARS-COV- 2 (COVID-19 ) vaccine, vector non-repli cating, recombina nt spike protein-A d26, preservat stefania free, 0.5 mL [facility] Influenza, inj, MDCK, quadrivalent- pf 2020 ROXANAMATOS 171 complet ed Result Comment: Route: Unknown Manufactu rer: [facility] (SEQ) [facility] Influenza, injectable, MDCK, preservative free, quadrivalent 2020 ADRIAZOLA, () Not Given Influenza , injectabl e, MDCK, preservat stefania free, quadrival ent DoD Influenza, injectable, Madin Nell Canine Kidney, preservative free, quadrivalent 0 2020 171 Jacqueline (SEQ) comple t ed Influenza , injectabl e, Madin Benton Canine Kidney, preservat stefania free, quadrival ent DoD SARS-COV-2 (COVID-19) vaccine, UNSPECIFIED 0 2020 213 () Not Given SARS-COV- 2 (COVID-19 ) vaccine, UNSPECIFI ED DoD influenza, seasonal, injectable 2019 ROXANAMATOS TRANSCR IBED 141 complet ed Result Comment: Route: Unknown Manufactu rer: Transcrib ed (TRS) [facility] wer Influenza, inj, MDCK, quadrivalent- pf 2019 ROXANAMATOS 171 complet ed Result Comment: Unit: Unknown Manufactu rer: () [facility] influenza virus vaccine, inactivated 2019 ROXANAMATOS 88 complet ed Result Comment: Route: Unknown Manufactu rer: [facility]TH (SEQ) [facility] Influenza, injectable, MDCK, preservative free, quadrivalent 2019 SARAH, () Not Given Influenza , injectabl e, MDCK, preservat stefania free, quadrival ent DoD Influenza, seasonal, injectable 1 2019 141 Transcribed (TRS) complet ed Influenza , seasonal, injectabl e DoD Influenza, injectable, Madin Nell Canine Kidney, preservative free, quadrivalent 0 2019 171 (MVX) complet ed Influenza , injectabl e, Madin Nell Canine Kidney, preservat stefania free, quadrival ent DoD Influenza, inj, MDCK, quadrivalent- pf 2018 171 complet ed Influenza , inj, MDCK, quadrival ent-pf 04/19/19 Given Ambulat ory Pharmac y Influenza, inj, MDCK, quadrivalent- pf 2018 171 complet ed Influenza , inj, MDCK, quadrival ent-pf 04/19/19 Given Ambulat ory Pharmac y Influenza, injectable, MDCK, preservative free, quadrivalent 2018 ESPAÑA, () Not Given Influenza , injectabl e, MDCK, preservat stefania free, quadrival ent DoD Influenza, injectable, Madin Benton Canine Kidney, preservative free, quadrivalent 0 2018 171 (MVX) complet ed Influenza , injectabl e, Madin Nell Canine Kidney, preservat stefania free, quadrival ent DoD Influenza, inj, MDCK, quadrivalent- pf 2017 171 complet ed Influenza , inj, MDCK, quadrival ent-pf 05/28/18 Given Ambulat ory Pharmac y influenza, seasonal, injectable 2017 TRANSCR IBED 141 [employer] complet ed influenza , seasonal, injectabl e 05/28/18 Given Ambulat ory Pharmac y Influenza, inj, MDCK, quadrivalent- pf 2017 171 complet ed Influenza , inj, MDCK, quadrival ent-pf 05/28/18 Given Ambulat ory Pharmac y influenza, seasonal, injectable 2017 TRANSCR IBED 141 [employer] complet ed influenza , seasonal, injectabl e 05/28/18 Given Ambulat ory Pharmac y Influenza, seasonal, injectable 1 2017 141 [employer] (SEQ) comple t ed Influenza , seasonal, injectabl e DoD Influenza, injectable, Madin Benton Canine Kidney, preservative free, quadrivalent 0 2017 171 (MVX) complet ed Influenza , injectabl e, Madin Benton Canine Kidney, preservat stefania free, quadrival ent DoD influenza, seasonal, injectable-pf 2016 TRANSCR IBED 140 complet ed influenza , seasonal, injectabl e-pf 05/26/17 Given Ambulat ory Pharmac y influenza, seasonal, injectable-pf 2016 TRANSCR IBED 140 complet ed influenza , seasonal, injectabl e-pf 05/26/17 Given Ambulat ory Pharmac y Influenza, inj, MDCK, quadrivalent- pf 2016 BERTAS 171 complet ed Result Comment: Unit: Unknown Manufactu rer: () [facility] Influenza, injectable, MDCK, preservative free, quadrivalent 2016 STONE, () Not Given Influenza , injectabl e, MDCK, preservat stefania free, quadrival ent DoD Influenza, seasonal, injectable, preservative free 1 2016 140 Transcribed (TRS) complet ed Influenza , seasonal, injectabl e, preservat stefania free DoD influenza, seasonal, injectable-pf 2015 TRANSCR IBED 140 complet ed influenza , seasonal, injectabl e-pf 04/29/16 Given Ambulat ory Pharmac y influenza, seasonal, injectable-pf 2015 TRANSCR IBED 140 complet ed influenza , seasonal, injectabl e-pf 04/29/16 Given Ambulat ory Pharmac y influenza, injectable, quadrivalent- pf 2015 ROXANAMATOS 150 complet ed Result Comment: Unit: Unknown Manufactu rer: () [facility] influenza, injectable, quadrivalent, preservative free 2015 [facility], () Not Given influenza , injectabl e, quadrival ent, preservat stefania free DoD Influenza, seasonal, injectable, preservative free 1 2015 140 Transcribed (TRS) complet ed Influenza , seasonal, injectabl e, preservat stefania free DoD influenza virus vaccine, live 2014 [id number] sanofi pasteur complet ed influenza virus vaccine, live 06/02/15 Given Ambulat ory Pharmac y influenza virus vaccine, live 2014 [id number] 111 sanofi pasteur complet ed influenza virus vaccine, live 06/02/15 Given Ambulat ory Pharmac y influenza virus vaccine, live, attenuated, for intranasal use 1 2014 Unknown, Provider [id number] Sanofi Pasteur ([facility]) complet ed influenza virus vaccine, live, attenuate d, for intranasa l use DoD influenza, live, intranasal,qu adrivalent 2014 [id number] 149 CSL Behring complet ed influenza , live, intranasa l,quadriv alent 06/01/15 Given Ambulat ory Pharmac y influenza, live, intranasal,qu adrivalent 2014 [id number] 149 CSL Behring complet ed influenza , live, intranasa l,quadriv alent 06/01/15 Given Ambulat ory Pharmac y influenza, live, intranasal, quadrivalent 1 2014 [id number] 149 [employer] (CS) complet ed influenza , live, intranasa l, quadrival ent DoD influenza, seasonal, injectable-pf 2013 zzLef t Arm [id number] 140 CSL Behring complet ed influenza , seasonal, injectabl e-pf 04/11/14 Given Ambulat ory Pharmac y Influenza, seasonal, injectable, preservative free 1 2013 Unknown, Provider [id number] 140 [facility] [employer] (CSL) complet ed Influenza , seasonal, injectabl e, preservat stefania free DoD influenza, seasonal, injectable-pf 2012 [id number] 140 Novartis Pharmaceutica ls complet ed influenza , seasonal, injectabl e-pf 05/30/13 Given Ambulat ory Pharmac y influenza, seasonal, injectable-pf 2012 [id number] 140 Novartis Pharmaceutica ls complet ed influenza , seasonal, injectabl e-pf 05/30/13 Given Ambulat ory Pharmac y Influenza, seasonal, injectable, preservative free 9 2012 [id number] 140 Novartis [employer] Abigail. (NOV) complet ed Influenza , seasonal, injectabl e, preservat stefania free DoD INFLUENZA, UNSPECIFIED FORMULATION 2012 88 complet ed [employer] [facility] influenza, seasonal, injectable-pf 2011 TRANSCR IBED 140 complet ed influenza , seasonal, injectabl e-pf 04/24/12 Given Ambulat ory Pharmac y influenza, seasonal, injectable-pf 2011 TRANSCR IBED 140 complet ed influenza , seasonal, injectabl e-pf 04/24/12 Given Ambulat ory Pharmac y Influenza, seasonal, injectable, preservative free 1 2011 140 Transcribed (TRS) complet ed Influenza , seasonal, injectabl e, preservat stefania free DoD tetanus, diphtheria, acellular pertu is 2011 [id number] 115 sanofi pasteur complet ed tetanus, diphtheri a, acellular pertussis 02/08/12 Given Ambulat ory Pharmac y tetanus, diphtheria, acellular pertu is 2011 [id number] 115 sanofi pasteur complet ed tetanus, diphtheri a, acellular pertussis 02/08/12 Given Ambulat ory Pharmac y tetanus toxoid, reduced diphtheria toxoid, and acellular pertu is vaccine, adsorbed 0 2011 [id number] 115 Sanofi Pasteur ([facility]) complet ed tetanus toxoid, reduced diphtheri a toxoid, and acellular pertussis vaccine, adsorbed DoD influenza virus vaccine, live 2010 [id number] 111 [employer] comple t ed influenza virus vaccine, live 05/18/11 Given Ambulat ory Pharmac y influenza virus vaccine, live 2010 [id number] 111 [employer] comple t ed influenza virus vaccine, live 05/18/11 Given Ambulat ory Pharmac y influenza virus vaccine, live, attenuated, for intranasal use 7 2010 [id number] [email or web address] (MED) complet ed influenza virus vaccine, live, attenuate d, for intranasa l use DoD influenza virus vaccine,split 2010 [id number] CSL Behring complet ed influenza virus vaccine,s plit 12/09/10 Given Ambulat ory Pharmac y influenza virus vaccine,split 2010 [id number] 15 CSL Behring complet ed influenza virus vaccine,s plit 12/09/10 Given Ambulat ory Pharmac y influenza virus vaccine, split virus (incl. purified surface antigen)-reti red CODE 1 2010 [id number] 15 [employer] (CSL) complet ed influenza virus vaccine, split virus (incl. purified surface antigen)- retired CODE DoD HPV, QUADRIVALENT 2009 62 complet ed [facility] INFLUENZA, UNSPECIFIED FORMULATION 2009 88 complet [facility] HPV, QUADRIVALENT 2008 62 complet ed [facility] INFLUENZA, UNSPECIFIED FORMULATION 2007 88 complet [facility] influenza virus vaccine,split 2006 [id number] 15 sanofi pasteur complet ed influenza virus vaccine,s plit 06/27/07 Given Ambulat ory Pharmac y influenza virus vaccine,split 2006 [id number] 15 sanofi pasteur complet ed influenza virus vaccine,s plit 06/27/07 Given Ambulat ory Pharmac y influenza virus vaccine, split virus (incl. purified surface antigen)-reti red CODE 1 2006 [id number] 15 Sanofi Pasteur (PMC) complet ed influenza virus vaccine, split virus (incl. purified surface antigen)- retired CODE DoD varicella virus vaccine 2 2005 21 () Not Given varicella virus vaccine DoD hepatitis B vaccine, adult dosage 1 2005 EXEMPT 43 Transcribed (TRS) Not Given hepatitis B vaccine, adult dosage DoD tuberculin purified protein derivative 2004 [id number] 96 Shahla Eknji complet ed tuberculi n purified protein derivativ e 07/05/05 Given Ambulat ory Pharmac y influenza virus vaccine, live 2004 [id number] 111 [employer] comple t ed influenza virus vaccine, live 05/01/05 Given Ambulat ory Pharmac y influenza virus vaccine, live 2004 [id number] 111 [place] [employer] [place] comple t ed influenza virus vaccine, live 05/01/05 Given Ambulat ory Pharmac y influenza virus vaccine, live, attenuated, for intranasal use 1 2004 [id number] 111 [email or web address]. (MED) complet ed influenza virus vaccine, live, attenuate d, for intranasa l use DoD influenza virus vaccine, whole virus 2004 [id number] 16 sanofi pasteur complet ed influenza virus vaccine, whole virus 12/06/04 Given Ambulat ory Pharmac y influenza virus vaccine, whole virus 2004 [id number] 16 sanofi pasteur complet ed influenza virus vaccine, whole virus 12/06/04 Given Ambulat ory Pharmac y influenza virus vaccine, whole virus 1 2004 [id number] 16 Sanofi Pasteur (PMC) complet ed influenza virus vaccine, whole virus DoD TETANUS DIPHTHERIA ADULT (HISTORICAL) 2004 139 complet ed [facility] tuberculin purified protein derivative 2003 [id number] Unknown complet ed tuberculi n purified protein derivativ e 05/02/04 Given Ambulat ory Pharmac y influenza virus vaccine, whole virus 2002 [id number] 16 sanofi pasteur complet ed influenza virus vaccine, whole virus 07/12/03 Given Ambulat ory Pharmac y influenza virus vaccine, whole virus 2002 [id number] 16 sanofi pasteur complet ed influenza virus vaccine, whole virus 07/12/03 Given Ambulat ory Pharmac y influenza virus vaccine, whole virus 0 2002 [id number] 16 Sanofi Pasteur (PMC) complet ed influenza virus vaccine, whole virus DoD hepatitis A adult vaccine 2002 [id number] 52 Merck & Company Inc complet ed hepatitis A adult vaccine 11/08/02 Given Ambulat ory Pharmac y hepatitis A adult vaccine 2002 [id number] 52 Merck & Company Inc complet ed hepatitis A adult vaccine 11/08/02 Given Ambulat ory Pharmac y hepatitis A vaccine, adult dosage 2 2002 [id number] 52 Merck (MSD) complet ed hepatitis A vaccine, adult dosage DoD typhoid Vi capsular polysaccharid e vac 2002 [id number] 101 sanofi pasteur complet ed typhoid Vi capsular polysacch aride vac 09/03/02 Given Ambulat ory Pharmac y yellow fever vaccine 2002 [id number] 37 sanofi pasteur complet ed yellow fever vaccine 09/03/02 Given Ambulat ory Pharmac y typhoid Vi capsular polysaccharid e vac 2002 [id number] 101 sanofi pasteur complet ed typhoid Vi capsular polysacch aride vac 09/03/02 Given Ambulat ory Pharmac y yellow fever vaccine 2002 [id number] 37 sanofi pasteur complet ed yellow fever vaccine 09/03/02 Given Ambulat ory Pharmac y yellow fever vaccine 0 2002 [id number] 37 Sanofi Pasteur (PMC) complet ed yellow fever vaccine DoD typhoid Vi capsular polysaccharid e vaccine 0 2002 [id number] 101 Sanofi Pasteur (PMC) complet ed typhoid Vi capsular polysacch aride vaccine DoD influenza virus vaccine, whole virus 2001 [id number] 16 sanofi pasteur complet ed influenza virus vaccine, whole virus 05/01/02 Given Ambulat ory Pharmac y influenza virus vaccine, whole virus 2001 [id number] 16 sanofi pasteur complet ed influenza virus vaccine, whole virus 05/01/02 Given Ambulat ory Pharmac y influenza virus vaccine, whole virus 0 2001 [id number] 16 Sanofi Pasteur (PMC) complet ed influenza virus vaccine, whole virus DoD hepatitis A adult vaccine 2001 [id number] 52 GlaxoSmithKli ne complet ed hepatitis A adult vaccine 04/09/02 Given Ambulat ory Pharmac y varicella virus vaccine 2001 [id number] 21 Merck & Company Inc complet ed varicella virus vaccine 04/09/02 Given Ambulat ory Pharmac y hepatitis A adult vaccine 2001 [id number] 52 GlaxoSmithKli ne complet ed hepatitis A adult vaccine 04/09/02 Given Ambulat ory Pharmac y varicella virus vaccine 2001 [id number] 21 Merck & Company Inc complet ed varicella virus vaccine 04/09/02 Given Ambulat ory Pharmac y measles, mumps and rubella virus vaccine 0 2001 03 () Not Given measles, mumps and rubella virus vaccine DoD varicella virus vaccine 1 2001 [id number] 21 Merck (MSD) complet ed varicella virus vaccine DoD hepatitis A vaccine, adult dosage 1 2001 [id number] 6 Electronic Brailler (SKB) complet ed hepatitis A vaccine, adult dosage DoD tuberculin purified protein derivative 2001 [id number] 96 sanofi pasteur complet ed tuberculi n purified protein derivativ e 04/02/02 Given Ambulat ory Pharmac y poliovirus vaccine, inactivated 2001 [id number] 10 sanofi pasteur complet ed polioviru s vaccine, inactivat ed 04/02/02 Given Ambulat ory Pharmac y tetanus-dipht h toxoids (Td) adult/adol 2001 [id number] 09 sanofi pasteur complet ed tetanus-d iphth toxoids (Td) adult/ado l 04/02/02 Given Ambulat ory Pharmac y meningococcal polysaccharid e (MPSV4) 2001 [id number] 32 sanofi pasteur complet ed meningoco ccal polysacch aride (MPSV4) 04/02/02 Given Ambulat ory Pharmac y meningococcal polysaccharid e (MPSV4) 2001 [id number] 32 sanofi pasteur complet ed meningoco ccal polysacch aride (MPSV4) 04/02/02 Given Ambulat ory Pharmac y tetanus-dipht h toxoids (Td) adult/adol 2001 [id number] 09 sanofi pasteur complet ed tetanus-d iphth toxoids (Td) adult/ado l 04/02/02 Given Ambulat ory Pharmac y poliovirus vaccine, inactivated 2001 [id number] 10 sanofi pasteur complet ed polioviru s vaccine, inactivat ed 04/02/02 Given Ambulat ory Pharmac y tetanus and diphtheria toxoids, adsorbed, preservative free, for adult use (2 Lf of tetanus toxoid and 2 Lf of diphtheria toxoid) 0 2001 [id number] 09 Sanofi Pasteur (PMC) complet ed tetanus and diphtheri a toxoids, adsorbed, preservat stefania free, for adult use (2 Lf of tetanus toxoid and 2 Lf of diphtheri a toxoid) DoD poliovirus vaccine, inactivated 0 2001 [id number] 10 Sanofi Pasteur ([facility]) complet ed polioviru s vaccine, inactivat ed DoD meningococcal polysaccharid e vaccine (MPSV4) 0 2001 [id number] 32 Sanofi Pasteur (PMC) complet ed meningoco ccal polysacch aride vaccine (MPSV4) DoD Results Combined list of recent chemistry, hematology and other laboratory results from Department of Defense and Veterans Affairs, ranging from 15 months to all on record, depending upon the facility. Order Name Results Value Reference Range Date Interpretation Specimen Comments Source Chemistry eGFR CKD EPI 84 mL/min /1.73_ m2 09/09 Interpretiv e Data: Estimated Glomerular Filtration Rate (eGFR) calculated using the 2020 Chronic Kidney Disease-Epi demiology (CKD-EPI) Collaborati on creatinine equation; units of measure are mL/min/1.73 m2. Results are only valid for adults (e18 years) whose serum creatinine is in steady state.? eGFR calculation s are not valid for patients with acute kidney injury and for patients on dialysis. ?Creatinine -based estimates of kidney function may also be inaccurate in patients with reduced creatinine generation due to decreased muscle mass (e.g., malnutritio n, severe hypoalbumin emia, sarcopenia, chronic neuromuscul ar disease, amputations , severe heart failure or liver disease) and in patients with increased creatinine generation due to increased muscle mass (e.g., muscle builders, anabolic steroids) or increased dietary intake. As drug clearance is proportiona l to total GFR and not GFR indexed to body surface area (BSA), in individuals with a BSA substantial ly different than 1.73 m2, drug dosing should be based the reported eGFRvalue de-indexed from BSA by multiplying by the individual s BSA and dividing by 1.73. CKD is diagnosed based on abnormaliti es of kidney structure or function, present for >3 months, with implication s for health and disease. CKD is classified and staged based on cause, eGFR and albuminuria (quantified as urine albumin to creatinine ratio). An eGFR >60 mL/min/1.73 m2 in the absence of increased urine albumin excretion or structural abnormaliti es does not represent CKD.eGFR (mL/min/1.7 3 m2) CKD stage Interpretat ion e90 G1 Normal 60-89 G2 Mild decrease 45-59 G3A Mild to moderate decrease 30-44 G3B Moderate to severe decrease 15-29 G4 Severe decrease <15 G5 Kidney failure [facility] Chemistry BUN/Creat Ratio 20.0 12.0 - 20.0 09/09 N [facility] A/G Ratio 1.2 1.1 - 2.5 09/09 N [facility] Chemistry Creatinine Level 0.9 mg/dL 0.3 - 1.2 09/09 N [facility] Chemistry AGAP 6 mmol/L 8 - 16 09/09 L [facility] Chemistry Albumin 4.1 g/dL 3.5 - 5.0 09/09 [facility] Chemistry Alk Phos 47 IU/mL 38 - 126 09/09 [facility] ALT 19 IU/mL 14 - 54 09/09 [facility] AST 24 IU/mL 15 - 41 09/09 [facility] Chemistry Bilirubin Total 1.0 mg/dL 0.2 - 1.0 09/09 [facility] Chemistry BUN 18 mg/dL 6 - 23 09/09 [facility] Chemistry Calcium 10.1 mg/dL 8.9 - 10.3 09/09 [facility] Chemistry Chloride 103 mmol/L 101 - 111 09/09 [facility] Chemistry CO2 27 mmol/L 20 - 34 09/09 [facility] Chemistry Glucose Lvl 89 mg/dL 70 - 100 09/09 [facility] Chemistry Potassium Lvl 4.5 mmol/L 3.6 - 5.1 09/09 [facility] Chemistry Sodium 136.0 mmol/L 135.0 - 146.0 09/09 [facility] Chemistry Protein Total 7.4 g/dL 6.4 - 8.3 09/09 [facility] Chemistry TSH, Sensitive 0.809 mIU/L 0.300 - 3.000 09/09 [facility] Chemistry T4 Free 0.9 ng/dL 0.6 - 1.6 09/09 N [facility] Hematolog y ESR.LC 25 mm/h 06/05 Result Comment: Performed At: [address] [id number] Sami Andersen MD Ph:[phone] [facility] Immunolog y/Serolog y RF Qnt <15 IU/mL 1 - 31 06/05 [facility] Immunolog y/Serolog y SS-A Ab.LC <0.2 AI 06/04 [facility] Immunolog y/Serolog y SS-B Ab.LC <0.2 AI 06/04 Result Comment: Performed At: [address] [id number] Sami Andersen MD Ph:[id number] [facility] Immunolog y/Serolog y RA Latex Turbidity LC <10.0 IU/mL 06/04 Result Comment: Performed At: [address] [id number] Sami Andersen MD Ph:[phone] [facility] Vital Signs Combined list of inpatient and outpatient Vital Signs from Department of Defense and Veterans Affairs, ranging from 12 months to all on record, depending upon the facility. Vital Sign Value Date Comments Source Systolic Blood Pressure 108mm[Hg] 06/04/2022 16:58:00 Ambulatory Pharmacy Diastolic Blood Pressure 67mm[Hg] 06/04/2022 16:58:00 Ambulatory Pharmacy Mean Arterial Pressure, Calc 81mm[Hg] 06/04/2022 16:58:00 Ambulatory P harmacy Peripheral Pulse Rate 67bpm 06/04/2022 16:58:00 Ambulatory Pharmacy Respiratory Rate 16br/min 06/04/2022 16:58:00 Ambulatory Pharmacy Temperature Temporal Artery 36.3Cel 06/04/2022 16:58:00 Ambulatory Pharmacy BP Site 06/04/2022 16:58:00 [facility] Blood Pressure Manual 06/04/2022 16:58:00 Ambulatory Pharmacy Systolic Blood Pressure 119mm[Hg] 09/09/2022 14:12:00 Ambulatory Pharmacy Diastolic Blood Pressure 78mm[Hg] 09/09/2022 14:12:00 Ambulatory Pharmacy Mean Arterial Pressure, Calc 92mm[Hg] 09/09/2022 14:12:00 Ambulatory P harmacy Peripheral Pulse Rate 79bpm 09/09/2022 14:12:00 Ambulatory Pharmacy Respiratory Rate 17br/min 09/09/2022 14:12:00 Ambulatory Pharmacy Temperature Temporal Artery 35.1Cel 09/09/2022 14:12:00 Ambulatory Pharmacy BP Site 09/09/2022 14:12:00 [facility] Blood Pressure Manual 09/09/2022 14:12:00 Ambulatory Pharmacy Systolic Blood Pressure 116mm[Hg] 05/20/2022 17:58:00 Ambulatory Pharmacy Diastolic Blood Pressure 75mm[Hg] 05/20/2022 17:58:00 Ambulatory Pharmacy Mean Arterial Pressure, Calc 89mm[Hg] 05/20/2022 17:58:00 Ambulatory P harmacy Peripheral Pulse Rate 81bpm 05/20/2022 17:58:00 Ambulatory Pharmacy Respiratory Rate 15br/min 05/20/2022 17:58:00 Ambulatory Pharmacy Temperature Temporal Artery 36.4Cel 05/20/2022 17:58:00 Ambulatory Pharmacy BP Site 05/20/2022 17:58:00 [facility] Blood Pressure Manual 05/20/2022 17:58:00 Ambulatory Pharmacy Encounters Combined list of: 1) Encounters from Department of Veterans Affairs facilities going back up to thelast 18 months. 2) Encounters from the Department of Defense facilities going back up to 280 months. Location Location Details Encounter Type Encounter Number Reason For Visit Attending Provider ADM Date DC Date Status Disposition Source [facility] [id number] PPD and Flu Shot VINNY GRAF PalmerJonathon 07/05 Released w/o Limitations [facility]) [facility]PATIENT [id number] healthy living worksho p SAI TRAMMELL 07/30 Released w/o Limitations JUD[facility] [employer] [place]([facility] Use) OUTPATIENT [id number] LEFT WRIST F/U JUAN JACKMAN 08/02 Released w/o Limitations JUDITH Monroy(Flig [facility]t Med Do Not Use) JUDITH Monroy([facility] Do Not Use) OUTPATIENT [id number] pt request s reffera l to physica l therapy . JUAN JACKMAN 09/24 Released with Work/Duty Limitations [employer] [place]) OUTPATIENT [id number] profile update JACKLYN GOODWIN 12/02 Released with Work/Duty Limitations [employer] [place]) [employer] [place]) OUTPATIENT [id number] rash on r hand CODY RODRIGUES 12/18 Released w/o Limitations [employer] [place]) [place]) OUTPATIENT [id number] AF Sep physica l JACKLYN GOODWIN 01/08 Released w/o Limitations [employer] [place]) Herlinda brumfield [facility] [place]([facility] F01A Team A SCOM) OUTPATIENT [id number] fever and chest cold ASHLEY BONDS 11/30 Sick at Home/Quarter s [facility] g[facility] [place]([facility] F01A Team A SCOM) Herlinda brumfield [facility] [place]([facility] F01A Team A SCOM) OUTPATIENT [id number] bronchi tis ASHLEY BONDS 12/03 Sick at Home/Quarter s D. D. Norma gorman [facility] [place]([facility] F01A Team A SCOM) [facility] [place] [address]([facility]) OUTPATIENT [id number] Bilat knee/sh in pain ASHER JANINE Delta 02/15 Released w/o Limitations [facility] [place] [address]([facility]) [place]linda [place]um[place] [facility] [place]([facility] F01A Team A SCOM) TELE CONSULT [id number] Notes Entered by: Sidney GOODRICH 02 Mar 2014 1109 ------- ------- ------- ------- -- Ortho referra ASHLEY Tanner 03/02 [facility] [facility] [place]([address] Team A SCOM) Herlinda brumfield [facility] [place] ([address] Team A SCOM) OUTPATIENT [id number] Abdomin al pain ASHLEY BONDS 03/22 Released w/o Limitations Herlinda Green [facility] [place] ([address] Team A SCOM) Herlinda brumfield [facility] [place] ([address] Team A SCOM) TELE CONSULT [id number] Notes Entered by: FIONA ERAZO 23 Mar 2014 1032 ------- ------- ------- ------- -- Pt was put into wrist cast and needs to be placed in a profile . ASHLEY BONDS 03/[address] Herlinda Green [facility] [place] ([address] Team A SCOM) Herlinda brumfield [facility] [place] ([address] Team A SCOM) TELE CONSULT [id number] Notes Entered by: JOY FRANCE 25 Mar 2014 1323 ------- ------- ------- ------- -- Pt needs profile for left thumb sprain ASHLEY BONDS 03/25 Herlinda Green [facility] [place] ([address] Team A SCOM) Herlinda brufmield [facility] [place] ([address] Team A SCOM) OUTPATIENT [id number] follow up from orthope dic surgeon /needs profile ASHLEY BONDS 04/11 Released with Work/Duty Limitations [facility] [place] [facility] Team A SCOM) Herlinda brumfield [facility] [place] ([address] Team A SCOM) TELE CONSULT [id number] Notes Entered by: Alonso BONDS 11 Apr 2014 1601 ------- ------- ------- ------- -- HEDIs Update ASHLEY BONDS 04/11 Herlinda Green [facility] [place] ([address] Team A SCOM) Herlinda brumfield [facility] [place]([address] Team A SCOM) OUTPATIENT [id number] pull muscle on neck DITASidney, ASHLEY 06/22 Released with Work/Duty Limitations Herlinda Green [facility] [place] ([address] Team A SCOM) Herlinda brumfield [facility] [place] Team A SCOM) TELE CONSULT [id number] Notes Entered by: MAGI EASTMAN 18 Aug 2014 0806 ------- ------- ------- ------- -- Profile Request CAMMIE, ASHLEY 08/[address] Herlinda Green [facility] [place]([address] Team A [place]) Herlinda brumfield [facility] [place] Team A SCOM) TELE CONSULT [id number] Notes Entered by: CARMELA PASTOR 29 Aug 2014 0732 ------- ------- ------- ------- -- referal DIPARMINDER, ASHLEY 08/29 Herlinda Green [facility] [place] Team [place]) Herlinda brumfield [facility] [place] Team A SCOM) OUTPATIENT [id number] bilater al leg pain DITASidney, ASHLEY 09/08 Released with Work/Duty Limitations [facility] [place] [place]) Herlinda brumfield [facility] [place] Team A [place]) TELE CONSULT [id number] Notes Entered by: ADALID MEHTA 19 Sep 2014 0746 ------- ------- ------- ------- -- Xray cervica l spine DITASidney, ASHLEY 09/[address]linda [address] [facility] [place]([address] Team A SCOM) Herlinda brumfield [facility] [place] Team A SCOM) OUTPATIENT [id number] Weight Loss DITA, 10/12 Released w/o Limitations Herlinda gorman [facility] [place] Team A SCOM) Herlinda brumfield [facility] [place] Team A SCOM) OUTPATIENT [id number] Med refill KELSI11/30 Released w/o Limitations Herlinda gorman [facility] [place]([address] Team A SCOM) Herlinda brumfield [facility] [place] Team A SCOM) OUTPATIENT [id number] UTI DITA, 12/30 Released w/o Limitations Herlinda gorman [facility] [place]([address] Team A SCOM) Herlinda brumfield [facility] [place] Team A SCOM) TELE CONSULT [id number] Notes Entered by: CHEY JOSHUA 09 Jan 2015 0918 ------- ------- ------- ------- -- Ortho for Lyla BONDS, ASHLEY01/09 Herlinda gorman [facility] [place]([address] Team A SCOM) Herlinda brumfield [facility] [place] Team A SCOM) OUTPATIENT [id number] f/u labwork DI01/25 Released w/o Limitations Herlinda gorman [facility] [place] ([address] Team A SCOM) Herlinda brumfield [facility] [place] Team A SCOM) TELE CONSULT [id number] Notes Entered by: MAGI EASTMAN 16 Feb 2015 1317 ------- ------- ------- ------- -- Chiquita BONDS 02/16 Herlinda gorman [facility] [place]([address] Team A SCOM) Herlinda brumfield [facility] [place]([address] Team A SCOM) OUTPATIENT [id number] Notes Entered by: FIONA ERAZO 02 Jun 2015 1134 ------- ------- ------- ------- -- flu shot DITAASHLEY Little 06/02 Released w/o Limitations Herlinda Green [facility] [place] Team A SCOM) Herlinda brumfield [facility] [place]([address] A SCOM) OUTPATIENT [id number] R- hand injury PRINCE DURAND Delta 06/12 Released w/o Limitations Herlinda Green [facility] [place] Team A SCOM) Herlinda brumfield [facility] [place]([address] A SCOM) OUTPATIENT [id number] Right hand pain ASHLEY BONDS 06/14 Released with Work/Duty Limitations [facility] [place] Team A SCOM) Herlinda brumfield [facility] [place] Team A SCOM) TELE CONSULT [id number] Notes Entered by: STEFFI REGALADO 15 Jun 2015 0919 ------- ------- ------- ------- -- Records request STEFFI REGALADO 06/15 Herlinda Green [facility] [place] Team A [place]) Herlinda brumfield [facility] [place] Team A SCOM) TELE CONSULT [id number] Notes Entered by: ADALID MEHTA 16 Jun 2015 0732 ------- ------- ------- ------- -- Xray right hand DITAASHLEY Little 06/16 Herlinda Green [facility] [place]([address] Team A SCOM) Herlinda brumfield [facility] [place] Team A SCOM) TELE CONSULT [id number] Notes Entered by: Bere GOSS 17 Jul 2015 1341 ------- ------- ------- ------- -- ortho report PRINCE DURAND 07/17 Herlinda Green [facility] [place] Team A SCOM) Herlinda Sarah r [facility] [place] Team A SCOM) OUTPATIENT [id number] Profile update ASHLEY BONDS 08/11 Released w/o Limitations Herlinda Wattsestrellita [facility] [place]([address] Team A SCOM) Herlinda Sarah r [facility] [place]([address] Team A SCOM) TELE CONSULT [id number] Notes Entered by: MAGI EASTMAN 21 Aug 2015 0723 ------- ------- ------- ------- -- Mail Prescri ASHLEY Meza 08/21 [facility] [place] [place]) Herlinda Sarah r [facility] [place] Team A [place]) OUTPATIENT [id number] Fever and headach es CAMMIE, ASHLEY 11/12 Released with Work/Duty Limitations [facility] [place] [place]) [place]inda Sarah r [facility] [place] Team A [place]) OUTPATIENT [id number] possibl e broken finger CAMMIE, ASHLEY 12/25 Released with Work/Duty Limitations [facility] [place] [place]) Herlinda Sarah r [facility] [place] Team A [place]) TELE CONSULT [id number] Notes Entered by: MAGI EASTMAN 10 Jan 2016 1416 ------- ------- ------- ------- -- ASHLEY Curtis 01/09 [facility] [place] [place]) Herlinda Sarah r [facility] [place] Team A [place]) TELE CONSULT [id number] Notes Entered by: ADALID MEHTA 12 Jan 2016 1339 ------- ------- ------- ------- -- Ambreen left hand MAGI WASHINGTON 01/[address] Herlinda Green [facility] [place] Team [place]) Herlinda brumfield [facility] [place] Team A [place]) TELE CONSULT [id number] Notes Entered by: MAGI EASTMAN 05 Feb 2016 1316 ------- ------- ------- ------- -- ASHLEY Curtis 02/04 Herlinda Green [facility] [place]([address] Team A SCOM) Herlinda brumfield [facility] [place] Team [place]) OUTPATIENT [id number] Kidney pain ASHLEY BONDS 02/05 Released with Work/Duty Limitations Herlinda Green [facility] [place] Team A [place]) Herlinda brumfield [facility] [place] Team A [place]) OUTPATIENT [id number] L- injury ASHLEY BONDS 02/11 Released with Work/Duty Limitations Herlinda Green [facility] [place] Team A [place]) Herlinda brumfield [facility] [place] Team A [place]) TELE CONSULT [id number] Notes Entered by: ADALID MEHTA 16 Feb 2016 1412 ------- ------- ------- ------- -- CT abdomen and pelvis ASHLEY Barrios 02/15 Herlinda Green [facility] [place] Team A [place]) Herlinda brumfield [facility] [place] Team A [place]COM) OUTPATIENT [id number] cyst ASHLEY BONDS 03/01 Released with Work/Duty Limitations Herlinda Green [facility] [place] ([address] Team A [place]) Herlinda brumfield [facility]([address] A [facility]) TELE CONSULT [id number] Notes Entered by: MAGI EASTMAN 05 Mar 201628 ------- ------- ------- ------- -- ASHLEY Cano 03/05 [facility] [place] ([address] Team A [place]) Herlinda brumfield [facility]([address] A [facility]) TELE CONSULT [id number] Notes Entered by: ADALID MEHTA 06 Mar 2016 0736 ------- ------- ------- ------- -- Urology notes ASHLEY BONDS 03/06 [facility] [place] ([address] A [place]) Herlinda Sarah [facility]([address]) TELE CONSULT [id number] Notes Entered by: ADALID MEHTA 11 Mar 2016 1326 ------- ------- ------- ------- -- PT initial evaluat ion and plan of care - thoraci c spine pain ASHLEY BONDS 03/11 [facility] [place] ([address] A [place]) Herlinda Sarah [facility]([address]) TELE CONSULT [id number] Notes Entered by: ADALID MEHTA 14 Mar 2016 0749 ------- ------- ------- ------- -- Urology notes ASHLEY BONDS 03/14 Herlinda Green [facility] [place] ([address] A [facility]) Herlinda brumfield [facility]([address]) TELE CONSULT [id number] Notes Entered by: ROBERT WILDE 15 Mar 2016 1053 ------- ------- ------- ------- -- ASHLEY Haas 03/15 Herlinda Green [facility] [place]([facility] F01A Team A SCOM) Herlinda brumfield [facility] [place]([facility] Team A SCOM) TELE CONSULT [id number] Notes Entered by: MAGI EASTMAN 22 May 2016 1418 ------- ------- ------- ------- -- ASHLEY Curtis 05/22 Herlinda Green [facility] [place]([facility] F01A Team A SCOM) Herlinda brumfield [facility] [place]([facility] F01A Team A SCOM) OUTPATIENT [id number] follow up dermato logy ASHLEY Calixto 08/14 Released w/o Limitations Herlinda Green [facility] [place]([facility] Team A SCOM) Herlinda brumfield [facility] [place]([facility] F01A Team A SCOM) OUTPATIENT [id number] ASHLEY James 08/19 Released w/o Limitations Herlinda Green [facility] [place]([facility] F[facility] Team A SCOM) Herlinda brumfield [facility] [place]([facility] F[facility] Team A SCOM) OUTPATIENT [id number] ASHLEY Smith 03/03 Released with Work/Duty Limitations Herlinda Green [facility] [place]([facility] F[facility] Team A SCOM) Herlinda brumfield [facility] [place]([facility] F[facility] Team A SCOM) TELE CONSULT [id number] Notes Entered by: ADALID MEHTA 10 Mar 2017 0802 ------- ------- ------- ------- -- Xray right tibia/f ASHLEY Mcelroy 03/10 Herlinda Green [facility]([address] Team A [place]) Herlinda brumfield [facility]([address] A [facility]) TELE CONSULT [id number] Notes Entered by: ADALID MEHTA 10 Mar 2017 0835 ------- ------- ------- ------- -- Xray left tibia/f ASHLEY Mcelroy 03/10 [facility] [place] Team A [facility]) Herlinda brumfield [facility]([address] A [facility]) OUTPATIENT [id number] f/u for labs/me ASHLEY Martinez 03/20 Released with Work/Duty Limitations [facility]([address] A [facility]) Herlinda brumfield [facility]([address] A [facility]) TELE CONSULT [id number] Notes Entered by: MAGI EASTMAN 02 May 2017 0738 ------- ------- ------- ------- -- ASHLEY Curtis 05/02 Herlinda Green [facility]([address] A [facility]) Herlinda brumfield [facility]([address] A [facility]) TELE CONSULT [id number] Notes Entered by: Pia CHAVEZ 06 May 2017 1735 ------- ------- ------- ------- -- Relay Health Message - Physica l Therapy ASHLEY Haas 05/06 [facility] [place]([address] A [facility]) Herlinda brumfield [facility]([address] A [facility]) TELE CONSULT [id number] Notes Entered by: LEILA BARTHOLOMEW 14 May 2017 0948 ------- ------- ------- ------- -- referra ASHLEY Tanner 05/14 Herlinda gorman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 (IIV3), SPLIT VIRUS, 0.5 ML DOSAGE, FOR INTRAMUSCULAR USE 005 [facility] PHYS/OTH 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,EDUCATION,TR AIN,LICENSURE/REGULATI ON (WHEN APPLICABLE) EDUC SER RENDERED TO PATS IN A GRP SETTING (EG,,OBESITY,O R DIABETIC INSTRUCT) 005 [facility]; NOT OTHERWISE SPECIFIED (NOS) [facility]; NOT OTHERWISE SPECIFIED (NOS) 022 [facility]; NOT OTHERWISE SPECIFIED (NOS) [facility]; NOT OTHERWISE SPECIFIED (NOS) [facility]; NOT OTHERWISE SPECIFIED (NOS) [facility]; NOT OTHERWISE SPECIFIED (NOS) [facility]; NOT OTHERWISE SPECIFIED (NOS) [facility] CYTOPATHOLOGY, CERVICAL OR VAGINAL (ANY REPORTING SYSTEM), REQUIRING INTERPRETATION BY PHYSICIAN [facility]; NOT OTHERWISE SPECIFIED (NOS) DoD TELE ASSESS & MGT SRV PROV QUAL NONPHYS HLTH CARE PRO TO EST PAT,PARENT,GUARD NOT ORIG REL ASSESS & MGT SRV PROV W/IN PREV 7 DAYS NOR LEAD ASSESS & MGT SRV/PX W/IN NXT 24 HR/SOON APT;5-10 MIN MED DIS DoD TELE ASSESS & MGT SRV PROV QUAL NONPHYS HLTH CARE PRO TO EST PAT,PARENT,GUARD NOT ORIG REL ASSESS & MGT SRV PROV W/IN PREV 7 DAYS NOR LEAD ASSESS & MGT SRV/PX W/IN NXT 24 HR/SOON APT;5-10 MIN MED DIS DoD REMOVAL OF SKIN TAGS, MULTIPLE FIBROCUTANEOUS TAGS, ANY AREA; UP TO AND INCLUDING 15 LESIONS [facility] BRIEF EMOTIONAL/BEHAVIORAL ASSESSMENT (EG, DEPRESSION INVENTORY, ATTENTION-DEFICIT/HYPE RACTIVITY DISORDER [ADHD] SCALE), WITH SCORING AND DOCUMENTATION, PER STANDARDIZED INSTRUMENT [facility] BRIEF EMOTIONAL/BEHAVIORAL ASSESSMENT (EG, DEPRESSION INVENTORY, ATTENTION-DEFICIT/HYPE RACTIVITY DISORDER [ADHD] SCALE), WITH SCORING AND DOCUMENTATION, PER STANDARDIZED INSTRUMENT [facility] BRIEF EMOTIONAL/BEHAVIORAL ASSESSMENT (EG, DEPRESSION INVENTORY, ATTENTION-DEFICIT/HYPE RACTIVITY DISORDER [ADHD] SCALE), WITH SCORING AND DOCUMENTATION, PER STANDARDIZED INSTRUMENT [facility] WRIST HAND ORTHOSIS, WRIST EXTENSION CONTROL COCK-UP, NON MOLDED, PREFABRICATED, [id number] [facility] BRIEF EMOTIONAL/BEHAVIORAL ASSESSMENT (EG, DEPRESSION INVENTORY, ATTENTION-DEFICIT/HYPE RACTIVITY DISORDER [ADHD] SCALE), WITH SCORING AND DOCUMENTATION, PER STANDARDIZED INSTRUMENT DoD PSYCHOTHERAPY, 45 MINUTES WITH PATIENT DoD TELE ASSESS & MGT SRV PROV QUAL NONPHYS HLTH CARE PRO TO EST PAT,PARENT,GUARD NOT ORIG REL ASSESS & MGT SRV PROV W/IN PREV 7 DAYS NOR LEAD ASSESS & MGT SRV/PX W/IN NXT 24 HR/SOON APT;5-10 MIN MED DIS [facility] BRIEF EMOTIONAL/BEHAVIORAL ASSESSMENT (EG, DEPRESSION INVENTORY, ATTENTION-DEFICIT/HYPE RACTIVITY DISORDER [ADHD] SCALE), WITH SCORING AND DOCUMENTATION, PER STANDARDIZED INSTRUMENT [facility] BRIEF EMOTIONAL/BEHAVIORAL ASSESSMENT (EG, DEPRESSION INVENTORY, ATTENTION-DEFICIT/HYPE RACTIVITY DISORDER [ADHD] SCALE), WITH SCORING AND DOCUMENTATION, PER STANDARDIZED INSTRUMENT [facility] BRIEF EMOTIONAL/BEHAVIORAL ASSESSMENT (EG, DEPRESSION INVENTORY, ATTENTION-DEFICIT/HYPE RACTIVITY DISORDER [ADHD] SCALE), WITH SCORING AND DOCUMENTATION, PER STANDARDIZED INSTRUMENT DoD TELE ASSESS & MGT SRV PROV QUAL NONPHYS HLTH CARE PRO TO EST PAT,PARENT,GUARD NOT ORIG REL ASSESS & MGT SRV PROV W/IN PREV 7 DAYS NOR LEAD ASSESS & MGT SRV/PX W/IN NXT 24 HR/SOON APT;5-10 MIN MED DIS DoD TELE ASSESS & MGT SRV PROV QUAL NONPHYS HLTH CARE PRO TO EST PAT,PARENT,GUARD NOT ORIG REL ASSESS & MGT SRV PROV W/IN PREV 7 DAYS NOR LEAD ASSESS & MGT SRV/PX W/IN NXT 24 HR/SOON APT;5-10 MIN MED DIS [facility] BRIEF EMOTIONAL/BEHAVIORAL ASSESSMENT (EG, DEPRESSION INVENTORY, ATTENTION-DEFICIT/HYPE RACTIVITY DISORDER [ADHD] SCALE), WITH SCORING AND DOCUMENTATION, PER STANDARDIZED INSTRUMENT [facility] WRIST HAND ORTHOSIS, WRIST EXTENSION CONTROL COCK-UP, NON MOLDED, PREFABRICATED, [id number] [facility] BRIEF EMOTIONAL/BEHAVIORAL ASSESSMENT (EG, DEPRESSION INVENTORY, ATTENTION-DEFICIT/HYPE RACTIVITY DISORDER [ADHD] SCALE), WITH SCORING AND DOCUMENTATION, PER STANDARDIZED INSTRUMENT [facility] BRIEF EMOTIONAL/BEHAVIORAL ASSESSMENT (EG, DEPRESSION INVENTORY, ATTENTION-DEFICIT/HYPE RACTIVITY DISORDER [ADHD] SCALE), WITH SCORING AND DOCUMENTATION, PER STANDARDIZED INSTRUMENT [facility] BRIEF EMOTIONAL/BEHAVIORAL ASSESSMENT (EG, DEPRESSION INVENTORY, ATTENTION-DEFICIT/HYPE RACTIVITY DISORDER [ADHD] SCALE), WITH SCORING AND DOCUMENTATION, PER STANDARDIZED INSTRUMENT [facility] BRIEF EMOTIONAL/BEHAVIORAL ASSESSMENT (EG, DEPRESSION INVENTORY, ATTENTION-DEFICIT/HYPE RACTIVITY DISORDER [ADHD] SCALE), WITH SCORING AND DOCUMENTATION, PER STANDARDIZED INSTRUMENT 019 [facility] URINE TEST, BY VISUAL COLOR COMPARISON METHODS 017 [facility] INFLUENZA VIRUS VACCINE, QUADRIVALENT, LIVE (LAIV4), FOR INTRANASAL USE 015 [facility] IMMUNIZATION ADMINISTRATION (INCLUDES PERCUTANEOUS, INTRADERMAL, SUBCUTANEOUS, OR INTRAMUSCULAR INJECTIONS); 1 VACCINE (SINGLE OR COMBINATION VACCINE/TOXOID) 014 [facility] Social History Combined list of available smoking, tobacco, and other social history from Department of Defense and Veterans Affairs facilities. Social History Type Response Date Comment Sourc e Female 03/29/2020 [facility] Tobacco smoking status NHIS LIFETIME NON-USER OF TOBACCO 01/27/2014 [facility] History of tobacco use LIFETIME NON-USER OF TOBACCO 04/27/2013 [facility] History of tobacco use LIFETIME NON-USER OF TOBACCO 09/17/2011 [facility] History of tobacco use LIFETIME NON-USER OF TOBACCO 09/12/2010 [facility] History of tobacco use LIFETIME NON-USER OF TOBACCO 09/14/2009 [facility] History of tobacco use LIFETIME NON-USER OF TOBACCO 11/18/2008 [facility] History of tobacco use LIFETIME NON-USER OF TOBACCO 01/27/2008 [facility] History of tobacco use LIFETIME NON-USER OF TOBACCO 01/09/2007 [facility] History of tobacco use LIFETIME NON-USER OF TOBACCO 10/27/2006 [facility] Tobacco Never-cigarette user Cigarette use:. Never-other tobacco user (not cigarettes) Other Tobacco use:. Ambulatory Pharmacy Sexual Orientation Ambula tory Pharmacy Gender identity Ambulator y Pharmacy This section is an empty social history section. [facility] Assessment and Plan Combined list of future care activities from Department of Defense and Veterans Affairs facilities (e.g., assessment and plan notes, appointments, orders, and referrals). Additional future care activities may be listed in the Plan of Care section. 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 2.?Myopia, bilateral Low Rx for night driving. Order Thunder frame [id number]. No path with DFE. No Tx. Do Not ARM x 18 hours. F/U 1 year. ? 3.?Regular astigmatism, left eye ? 4.?Tortuous retinal vein Bilateral tortuous veins w/out h/o HTN or DM. No evidence of hemes. Will have ptnt see PCM to r/o HTN DM. Will refer to ophthal for further eval/tx. Pt ed and photos today. Ordered: Referral Request 2.0 ? Extracted from:Title: obesity Author: ASHLEY BONDS Date: 09/29/22 1.?Obesity - Discussed with patient treatment plan, treatment options, patient with elevated BMI 31.86 , was started on phentermine 37.5 mg daily, discussed strict diet regimen, patient to follow-up in 30 days with repeat liver function testing, discussed importance of continuation of strict diet light low-impact cardiovascular activity, follow-up in 30 days. ?? ? patient was seen on September 25 Extracted from:Title: Ambulatory Patient Education Author: ASHLEY BONDS Date: 09/29/22 Nutrition BMI for Adults What is BMI? Body mass index (BMI) is a number that is calculated from a person's weight and height. BMI can help estimate how much of a person's weight is composed of fat. BMI does not measure body fat directly. Rather, it is an alternative to procedures that directly measure body fat, which can be difficult and expensive. BMI can help identify people who may be at higher risk for certain medical problems. What are BMI measurements used for? BMI is used as a screening tool to identify possible weight problems. It helps determine whether a person is obese, overweight, a healthy weight, or underweight. BMI is useful for: Identifying a weight problem that may be related to a medical condition or may increase the risk for medical problems. Promoting changes, such as changes in diet and exercise, to help reach a healthy weight. BMI screening can be repeated to see if these changes are working. How is BMI calculated? BMI involves measuring your weight in relation to your height. Both height and weight are measured, and the BMI is calculated from those numbers. This can be done either in [place] or metric measurements. Note that charts and online BMI calculators are available to help you find your BMI quickly and easily without having to do these calculations yourself. To calculate your BMI in [place] measurements: 1. Measure your weight in pounds (lb). 2. Multiply the number of pounds by 703. For example, for a person who weighs 180 lb, multiply that number by 703, which equals 126,540. 3. Measure your height in inches. Then multiply that number by itself to get a measurement called inches squared. For example, for a person who is 70 inches tall, the inches squared measurement is 70 inches x 70 inches, which equals 4,900 inches squared. 4. Divide the total from step 2 (number of lb x 703) by the total from step 3 (inches squared): 126,540 ? 4,900 = 25.8. This is your BMI. To calculate your BMI in metric measurements: 1. Measure your weight in kilograms (kg). 2. Measure your height in meters (m). Then multiply that number by itself to get a measurement called meters squared. For example, for a person who is 1.75 m tall, the meters squared measurement is 1.75 m x 1.75 m, which is equal to 3.1 meters squared. 3. Divide the number of kilograms (your weight) by the meters squared number. In this example: 70 ? 3.1 = 22.6. This is your BMI. What do the results mean? BMI charts are used to identify whether you are underweight, normal weight, overweight, or obese. The following guidelines will be used: Underweight: BMI less than 18.5. Normal weight: BMI between 18.5 and 24.9. Overweight: BMI between 25 and 29.9. Obese: BMI of 30 or above. Keep these notes in mind: Weight includes both fat and muscle, so someone with a muscular build, such as an athlete, may have a BMI that is higher than 24.9. In cases like these, BMI is not an accurate measure of body fat. To determine if excess body fat is the cause of a BMI of 25 or higher, further assessments may need to be done by a health care provider. BMI is usually interpreted in the same way for men and women. Where to find more information For more information about BMI, including tools to quickly calculate your BMI, go to these websites: Centers for Disease Control and Prevention: www.cdc.gov [place] [employer]: www.heart.org National Heart, Lung, and Blood [place]: www.nhlbi.nih.gov Summary Body mass index (BMI) is a number that is calculated from a person's weight and height. BMI may help estimate how much of a person's weight is composed of fat. BMI can help identify those who may be at higher risk for certain medical problems. BMI can be measured using [place] measurements or metric measurements. BMI charts are used to identify whether you are underweight, normal weight, overweight, or obese. This information is not intended to replace advice given to you by your health care provider. Make sure you discuss any questions you have with your health care provider. Document Revised: 04/05/2020 Document Reviewed: 02/11/2020 [employer] Patient Education ? 2021 [employer]. Extracted from:Title: lip rash, hip pain Author: ASHLEY BONDS Date: 09/11/22 1.?Lip fold dermatitis discussed with the patient treatment plan, patient with upper lip irritation, suspect allergy to make up discontinue makeup use recommended low-dose hydrocortisone cream as needed, patient to follow up as needed. ? 2.?Obesity - Discussed with patient treatment plan, treatment options, patient with elevated BMI above 30% , we'll need full lab workup prior to beginning phentermine therapy, to include liver function tests, thyroid profile metabolic panel? discussed strict diet regimen, patient to follow-up in 30 days with repeat liver function testing, discussed importance of continuation of strict diet light low-impact cardiovascular activity, follow-up in 30 days.? Ordered: Free T4 Level TSH, Sensitive ? 3.?Pain in right hip joint reviewed orthopedic notes a recommendation referral made for an MRI of the right hip patient follow-up with MRI results. ? patient was seen on September 09 Extracted from:Title: Ambulatory Patient Education Author: ASHELY BONDS Date: 09/11/22 How to Use Cold Therapy Cold therapy, or cryotherapy, is a treatment that uses cold temperatures to treat an injury or medical condition. It includes using cold packs or ice packs to reduce pain and swelling. Only use cold therapy if your doctor says it is okay. What are the risks? Generally, cold therapy is a safe treatment. However, it is not safe for: People who are not able to say they are in pain. These include small children and people who have memory problems. People who have certain conditions, such as: ? A problem in the vessels that slows blood flow to the fingers and toes (Raynaud's syndrome). ? Feeling very cold easily (cold hypersensitivity). ? Lack of feeling in the area being iced. Cold therapy may not be safe for people who have other conditions. Do not use it without talking to your doctor if you have: A heart condition. High blood pressure. Open or healing wounds. An infection. Pain and swelling in your joints (rheumatoid arthritis). Poor blood flow in the body. Diabetes. Certain skin conditions. How do I make a cold pack? When using a cold pack at home to reduce pain and swelling, you can use: A silica gel cold pack that has been left in the freezer. You can buy this online or in stores. A sealable plastic bag that has been filled with crushed ice. A washcloth or paper towels soaked in cold water or ice water. A plastic bag of frozen vegetables. Throw them away when you are finished using them as a cold pack. Supplies needed: A cold pack. A towel. This can be dry or damp, based on what you like. How to use cold therapy 1. Have your cold pack ready. 2. Place a towel between the cold pack and your skin. You may also wrap the cold pack in a towel. 3. Put the cold pack on the affected area. Keep it on for no more than 20 minutes at a time. 4. Check your skin after 5 minutes to make sure that there is no damage to the area. Check for: White spots on your skin. Your skin may look blotchy or mottled. Skin that looks blue or pale. Skin that feels waxy or hard. 5. Repeat these steps as many times each day as told by your doctor. Take off the ice if your skin turns bright red. This is very important. If you cannot feel pain, heat, or cold, you have a greater risk of damage to the area. Always use a towel to avoid direct contact with your skin. Contact a doctor if: You start to have white spots on your skin. This may give your skin a blotchy or mottled look. Your skin turns blue or pale. Your skin becomes waxy or hard. Your swelling gets worse. Summary Cold therapy, or cryotherapy, is used to treat an injury or other conditions. It includes using cold packs or ice packs to reduce pain and swelling. Cold therapy is not safe for people who are not able to say they are in pain. When using cold packs or ice packs, always place a towel between the cold source and your skin. Check your skin after 5 minutes of icing it. This is to make sure that there is no skin damage. Contact your doctor if you notice changes in your skin or your swelling gets worse. This information is not intended to replace advice given to you by your health care provider. Make sure you discuss any questions you have with your health care provider. Document Revised: 05/30/2021 Document Reviewed: 05/30/2021 [employer] Patient Education ? 2021 [employer] Exercising to Lose Weight Getting regular exercise is important for everyone. It is especially important if you are overweight. Being overweight increases your risk of heart disease, stroke, diabetes, high blood pressure, and several types of cancer. Exercising, and reducing the calories you consume, can help you lose weight and improve fitness and health. Exercise can be moderate or vigorous intensity. To lose weight, most people need to do a certain amount of moderate or vigorous-intensity exercise each week. How can exercise affect me? You lose weight when you exercise enough to burn more calories than you eat. Exercise also reduces body fat and builds muscle. The more muscle you have, the more calories you burn. Exercise also: Improves mood. Reduces stress and tension. Improves your overall fitness, flexibility, and endurance. Increases bone strength. Moderate-intensity exercise Moderate-intensity exercise is any activity that gets you moving enough to burn at least three times more energy (calories) than if you were sitting. Examples of moderate exercise include: Walking a mile in 15 minutes. Doing light yard work. Biking at an easy pace. Most people should get at least 150 minutes of moderate-intensity exercise a week to maintain their body weight. Vigorous-intensity exercise Vigorous-intensity exercise is any activity that gets you moving enough to burn at least six times more calories than if you were sitting. When you exercise at this intensity, you should be working hard enough that you are not able to carry on a conversation. Examples of vigorous exercise include: Running. Playing a team sport, such as football, basketball, and soccer. Jumping rope. Most people should get at least 75 minutes a week of vigorous exercise to maintain their body weight. What actions can I take to lose weight? The amount of exercise you need to lose weight depends on: Your age. The type of exercise. Any health conditions you have. Your overall physical ability. Talk to your health care provider about how much exercise you need and what types of activities are safe for you. Nutrition Make changes to your diet as told by your health care provider or diet and nutrition representative (dietitian). This may include: ? Eating fewer calories. ? Eating more protein. ? Eating less unhealthy fats. ? Eating a diet that includes fresh fruits and vegetables, whole grains, low-fat dairy products, and lean protein. ? Avoiding foods with added fat, salt, and sugar. Drink plenty of water while you exercise to prevent dehydration or heat stroke. Activity Choose an activity that you enjoy and set realistic goals. Your health care provider can help you make an exercise plan that works for you. Exercise at a moderate or vigorous intensity most days of the week. ? The intensity of exercise may vary from person to person. You can tell how intense a workout is for you by paying attention to your breathing and heartbeat. Most people will notice their breathing and heartbeat get faster with more intense exercise. Do resistance training twice each week, such as: ? Push-ups. ? Sit-ups. ? Lifting weights. ? Using resistance bands. Getting short amounts of exercise can be just as helpful as long, structured periods of exercise. If you have trouble finding time to exercise, try doing these things as part of your daily routine: ? Get up, stretch, and walk around every 30 minutes throughout the day. ? Go for a walk during your lunch break. ? Park your car farther away from your destination. ? If you take public transportation, get off one stop early and walk the rest of the way. ? Make phone calls while standing up and walking around. ? Take the stairs instead of elevators or escalators. Wear comfortable clothes and shoes with good support. Do not exercise so much that you hurt yourself, feel dizzy, or get very short of breath. Where to find more information U.S. Department of Health and Human Services: www.hhs.gov Centers for Disease Control and Prevention: www.cdc.gov Contact a health care provider: Before starting a new exercise program. If you have questions or concerns about your weight. If you have a medical problem that keeps you from exercising. Get help right away if: You have any of the following while exercising: ? Injury. ? Dizziness. ? Difficulty breathing or shortness of breath that does not go away when you stop exercising. ? Chest pain. ? Rapid heartbeat. These symptoms may represent a serious problem that is an emergency. Do not wait to see if the symptoms will go away. Get medical help right away. Call your local emergency services (911 in the [place] Do not drive yourself to the hospital. Summary Getting regular exercise is especially important if you are overweight. Being overweight increases your risk of heart disease, stroke, diabetes, high blood pressure, and several types of cancer. Losing weight happens when you burn more calories than you eat. Reducing the amount of calories you eat, and getting regular moderate or vigorous exercise each week, helps you lose weight. This information is not intended to replace advice given to you by your health care provider. Make sure you discuss any questions you have with your health care provider. Document Revised: 09/09/2021 Document Reviewed: 09/09/2021 [employer] Patient Education ? 2021 [employer]. Orthopedics How to Use Cold Therapy Cold therapy, or cryotherapy, is a treatment that uses cold temperatures to treat an injury or medical condition. It includes using cold packs or ice packs to reduce pain and swelling. Only use cold therapy if your doctor says it is okay. What are the risks? Generally, cold therapy is a safe treatment. However, it is not safe for: People who are not able to say they are in pain. These include small children and people who have memory problems. People who have certain conditions, such as: ? A problem in the vessels that slows blood flow to the fingers and toes (Raynaud's syndrome). ? Feeling very cold easily (cold hypersensitivity). ? Lack of feeling in the area being iced. Cold therapy may not be safe for people who have other conditions. Do not use it without talking to your doctor if you have: A heart condition. High blood pressure. Open or healing wounds. An infection. Pain and swelling in your joints (rheumatoid arthritis). Poor blood flow in the body. Diabetes. Certain skin conditions. How do I make a cold pack? When using a cold pack at home to reduce pain and swelling, you can use: A silica gel cold pack that has been left in the freezer. You can buy this online or in stores. A sealable plastic bag that has been filled with crushed ice. A washcloth or paper towels soaked in cold water or ice water. A plastic bag of frozen vegetables. Throw them away when you are finished using them as a cold pack. Supplies needed: A cold pack. A towel. This can be dry or damp, based on what you like. How to use cold therapy 1. Have your cold pack ready. 2. Place a towel between the cold pack and your skin. You may also wrap the cold pack in a towel. 3. Put the cold pack on the affected area. Keep it on for no more than 20 minutes at a time. 4. Check your skin after 5 minutes to make sure that there is no damage to the area. Check for: White spots on your skin. Your skin may look blotchy or mottled. Skin that looks blue or pale. Skin that feels waxy or hard. 5. Repeat these steps as many times each day as told by your doctor. Take off the ice if your skin turns bright red. This is very important. If you cannot feel pain, heat, or cold, you have a greater risk of damage to the area. Always use a towel to avoid direct contact with your skin. Contact a doctor if: You start to have white spots on your skin. This may give your skin a blotchy or mottled look. Your skin turns blue or pale. Your skin becomes waxy or hard. Your swelling gets worse. Summary Cold therapy, or cryotherapy, is used to treat an injury or other conditions. It includes using cold packs or ice packs to reduce pain and swelling. Cold therapy is not safe for people who are not able to say they are in pain. When using cold packs or ice packs, always place a towel between the cold source and your skin. Check your skin after 5 minutes of icing it. This is to make sure that there is no skin damage. Contact your doctor if you notice changes in your skin or your swelling gets worse. This information is not intended to replace advice given to you by your health care provider. Make sure you discuss any questions you have with your health care provider. Document Revised: 05/30/2021 Document Reviewed: 05/30/2021 [employer] Patient Education ? 2021 [employer] Physical Medicine and Rehabilitation Exercising to Lose Weight Getting regular exercise is important for everyone. It is especially important if you are overweight. Being overweight increases your risk of heart disease, stroke, diabetes, high blood pressure, and several types of cancer. Exercising, and reducing the calories you consume, can help you lose weight and improve fitness and health. Exercise can be moderate or vigorous intensity. To lose weight, most people need to do a certain amount of moderate or vigorous-intensity exercise each week. How can exercise affect me? You lose weight when you exercise enough to burn more calories than you eat. Exercise also reduces body fat and builds muscle. The more muscle you have, the more calories you burn. Exercise also: Improves mood. Reduces stress and tension. Improves your overall fitness, flexibility, and endurance. Increases bone strength. Moderate-intensity exercise Moderate-intensity exercise is any activity that gets you moving enough to burn at least three times more energy (calories) than if you were sitting. Examples of moderate exercise include: Walking a mile in 15 minutes. Doing light yard work. Biking at an easy pace. Most people should get at least 150 minutes of moderate-intensity exercise a week to maintain their body weight. Vigorous-intensity exercise Vigorous-intensity exercise is any activity that gets you moving enough to burn at least six times more calories than if you were sitting. When you exercise at this intensity, you should be working hard enough that you are not able to carry on a conversation. Examples of vigorous exercise include: Running. Playing a team sport, such as football, basketball, and soccer. Jumping rope. Most people should get at least 75 minutes a week of vigorous exercise to maintain their body weight. What actions can I take to lose weight? The amount of exercise you need to lose weight depends on: Your age. The type of exercise. Any health conditions you have. Your overall physical ability. Talk to your health care provider about how much exercise you need and what types of activities are safe for you. Nutrition Make changes to your diet as told by your health care provider or diet and nutrition representative (dietitian). This may include: ? Eating fewer calories. ? Eating more protein. ? Eating less unhealthy fats. ? Eating a diet that includes fresh fruits and vegetables, whole grains, low-fat dairy products, and lean protein. ? Avoiding foods with added fat, salt, and sugar. Drink plenty of water while you exercise to prevent dehydration or heat stroke. Activity Choose an activity that you enjoy and set realistic goals. Your health care provider can help you make an exercise plan that works for you. Exercise at a moderate or vigorous intensity most days of the week. ? The intensity of exercise may vary from person to person. You can tell how intense a workout is for you by paying attention to your breathing and heartbeat. Most people will notice their breathing and heartbeat get faster with more intense exercise. Do resistance training twice each week, such as: ? Push-ups. ? Sit-ups. ? Lifting weights. ? Using resistance bands. Getting short amounts of exercise can be just as helpful as long, structured periods of exercise. If you have trouble finding time to exercise, try doing these things as part of your daily routine: ? Get up, stretch, and walk around every 30 minutes throughout the day. ? Go for a walk during your lunch break. ? Park your car farther away from your destination. ? If you take public transportation, get off one stop early and walk the rest of the way. ? Make phone calls while standing up and walking around. ? Take the stairs instead of elevators or escalators. Wear comfortable clothes and shoes with good support. Do not exercise so much that you hurt yourself, feel dizzy, or get very short of breath. Where to find more information U.[place]. Department of Health and Human Services: www.hhs.gov Centers for Disease Control and Prevention: www.cdc.gov Contact a health care provider: Before starting a new exercise program. If you have questions or concerns about your weight. If you have a medical problem that keeps you from exercising. Get help right away if: You have any of the following while exercising: ? Injury. ? Dizziness. ? Difficulty breathing or shortness of breath that does not go away when you stop exercising. ? Chest pain. ? Rapid heartbeat. These symptoms may represent a serious problem that is an emergency. Do not wait to see if the symptoms will go away. Get medical help right away. Call your local emergency services (911 in the [place] Do not drive yourself to the hospital. Summary Getting regular exercise is especially important if you are overweight. Being overweight increases your risk of heart disease, stroke, diabetes, high blood pressure, and several types of cancer. Losing weight happens when you burn more calories than you eat. Reducing the amount of calories you eat, and getting regular moderate or vigorous exercise each week, helps you lose weight. This information is not intended to replace advice given to you by your health care provider. Make sure you discuss any questions you have with your health care provider. Document Revised: 09/09/2021 Document Reviewed: 09/09/2021 [employer] Patient Education ? 2021 [employer] Extracted from:Title: sciatica Author: ASHLEY BONDS Date: 08/14/22 1.?Sciatica please see SF 600,tg was down.? Extracted from:Title: lumbar radiculopathy Author: ASHLEY BONDS Date: 08/07/22 1.?Right side sciatica discussed with patient treatment plan, reviewed physical therapy notes and recommendations patient with poor response to formal physical therapy reports persistent right leg pain, radiating symptoms, a referral was made for an MRI of the lumbar spine, continue combination of anti-inflammatory muscle relaxant therapy follow-up with MRI results. Ordered: Referral Request 2.0 ? 2.?Back pain Ordered: Referral Request 2.0 ? Extracted from:Title: tinnitus, visual disturbance Author: ASHLEY BONDS Date: 07/09/22 1.?Tinnitus discussed with the patient treatment plan, patient with subjective ringing in the ears, referred to ENT for further evaluation and testing. Ordered: Referral Request 2.0 ? 2.?Visual disturbance patient with new onset of black spots peripheral when she expenses headache she reports, patient was referred to optometry for a examination, funduscopic exam. Ordered: Referral Request 2.0 ? 3.?Atypical nevus of skin multiple atypical skin nevus, patient was referred to dermatology for evaluation and skin testing ? 4.?Headache patient went on and off headaches, reports visual disturbance, recommend Motrin 400 mg when necessary basis for headaches, discussed maintaining a log of when headaches occur to evaluate possible causes, suspect tension related secondary to recent increase in her stress levels patient to follow-up in 30 days to evaluate recent for headaches. ? Orders: Referral Request 2.0 Referral Request 2.0 Extracted from:Title: BH Triage Note Author: ARYAN LEMOS Date: 07/04/22 Major depressive disorder Panic disorder No qualifying data available. No qualifying data available. No qualifying data available. Extracted from:Title: separation physical Author: ASHLEY BONDS Date: 06/07/22 1.?EXAM, OCCUPATIONAL, CUSTODIAL OR SEPARATION FROM UNIFORMED SERVICE, SHORT Part 1 of nursing home completed please see form, pt to scheduled part 2. 2.?Dysthymia Discussed with the patient treatment plan, coping strategies with symptoms of depressed mood and anxiety social avoidance, discussed importance of proper diet, daily cardiovascular activity and proper sleep the patient was started on a trial of Lexapro 5 mg daily, refer to be aroused for further evaluation and counseling, patient to follow-up as directed. ? ? patient was seen on June 04 Extracted from:Title: Office Clinic Note- LBP, left foot pain Author: MICHELLE GUERRA Date: 05/20/22 1.?Low back pain Discussed with patient treatment plan, mechanical lower back pain, no radiculopathy symptoms patient was given Toradol 30 mg IM??1, Flexeril 10 mg q 8 hrs for pain and spasms, Naproxen 500mg twice a day beginning tomorrow morning as needed. ??Instructed on conservative treatment measures to include application of ice/heat compress applied to affected area twice a day along with gentle range of motion exercises. ?Patient referred to physical therapy for rehabilitation in order to decrease pain and increased mobility. ?Patient instructed to follow-up with primary health care recruiter in one month for further evaluation or sooner as needed.? Ordered: naproxen(naproxen 500 mg oral delayed release tablet), 1 tab(s), Oral, BID, # 60 tab(s), 0 total refill(s), Acute, 09/20/2022, 1 tab(s) Oral BID, Pharmacy: [facility] [Not filled] ketorolac(Toradol), 30 mg, IntraMuscular, Injection, Once, First Dose: 05/20/2022 15:00:00 EDT, Stop Date: 05/20/2022 15:00:00 EDT, 05/20/2022 14:19:00 EDT Referral Request 2.0 ? 2.?Pain in left foot Pt with acute left foot pain, tender on palpation to lateral aspect of foot, she has a?hxf plantar fasciitis, is under treatment with the liquid sugar fortifier who has given-2 sets of custom orthotics, she wears one in her work boots and I recommended her to wear the other repair in her daily shoes, patient was also advised on use of tennis ball for stretching and use of frozen water bottle for ice therapy as well as stretching, and use of anti-inflammatories.? Will order x-ray of the left foot to rule out any stress fracture.? Patient has an appointment to see liquid sugar fortifier next week. Ordered: naproxen(naproxen 500 mg oral delayed release tablet), 1 tab(s), Oral, BID, # 60 tab(s), 0 total refill(s), Acute, 09/20/2022, 1 tab(s) Oral BID, Pharmacy: [facility] [Not filled] Referral Request 2.0 ? Orders: cyclobenzaprine(Flexeril 10 mg oral tablet), 1 tab(s), Oral, TID, # 30 tab(s), 0 total refill(s), Acute, 1 tab(s) Oral TID, Pharmacy: [facility] [Not filled] lidocaine topical(Lidoderm 5% topical film), 1 patch(es), Topical, Daily, Leave on for up to 12 hours within a 24 hour period (12 hours on, 12 hours off), # 30 patch(es), 3 total refill(s), Maintenance, 1 patch(es) Topical Daily,Instr:Leave on for up to 12 hours within a 24 hour period (12 hours... Diagnostic Tests PendingCRP-C+Homo S [id number] 05/29/22 07/12/2024 Ambulatory Pharmacy Functional Status Combined list of recent functional and cognitive assessments recorded at [facility]VA Functional [place] Measurement (FIM) Scale: 1 = Total Assistance (Subject = 0% +), 2 = Maximal Assistance (Subject = 25% +), 3 = Moderate Assistance (Subject = 50% +), 4 = Minimal Assistance (Subject = 75% +), 5 = Supervision, 6 = Modified [place] (Device), 7 = Complete [place] (Timely, Safely). Assessment Date/Time Source Assessment Type Assessment Skill Assessment Score Assessment Details No data available for this section
--- NOTE | 2024-07-12 16:17 | MHC.PC.OV ---
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 Required: No Allergies dyes Adverse Reaction (Severe, Uncoded 07/12/24 16:31) 3rd degree haskins fragrance Adverse Reaction (Severe, Uncoded 07/12/24 16:31) Haskins inks Adverse Reaction (Severe, Uncoded 07/12/24 16:31) Haskins Medication List - Last Reconciled 07/12/24 by Logan Garcia CNP albuterol sulfate 90 mcg/actuation 2 puffs inhalation Q4-6H PRN cholecalciferol (vitamin D3) 50 mcg PO DAILY 30 days escitalopram oxalate (Lexapro) 10 mg PO DAILY 30 days naproxen 500 mg PO BID PRN Tobacco use date assessed: 06/28/24 Dental Screening Dental Screen Date: 06/28/24 HPI HPI Comments History of Present Illness Details 39-year-old female presents to complete paperwork to excuse her from work physical test due to her current symptoms. She has history of anxiety and depression. She notes difficulty breathing while performing physical exercise at work, and attributed to anxiety. She wants to delay work physical test until the next 3 months. Anxiety and depressive symptoms are currently to controlled. [facility] Medical History Right arm pain Migraine delivery delivered Anxiety PTSD (post-traumatic stress disorder) Memory loss Back problem Arthritis Surgical History Status post fusion of wrist H/O tubal ligation Family History Mother High cholesterol Father Clotting disorder Alcoholism Psychiatric disorder Paternal Grandmother Clotting disorder Paternal Grandfather Clotting disorder Family/Other Asthma Other Mental health disorder Substance abuse Social History Household Members: Family Both parents involved: No Caregiver staying overnight: No Housing: House Are you a primary health care aide to a significant other at home: No Do you presently have visiting nurse or other home services: No 75 years or older and lives alone: No Alcohol intake: never Patient Tobacco Use Status: Never used Tobacco e-Cigarette/Vaping Use: Never Used Second Hand Smoke Exposure: No service: Yes 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 1. Little interest or pleasure in doing things: not at all 2. Feeling down, depressed, or hopeless: not at all 3. Trouble falling or staying asleep, or sleeping too much: not at all 4. Feeling tired or having little energy: not at all 5. Poor appetite or overeating: not at all 6. Feeling bad about yourself - or that you are a failure or have let yourself or your family down: not at all 7. Trouble concentrating on things, such as reading the newspaper or watching television: not at all 8. Moving or speaking so slowly that other people could have noticed. Or the opposite - being so fidgety or restless that you have been moving around a lot more than usual: not at all 9. Thoughts that you would be better off or of hurting yourself in some way: not at all Total score: 0 Depression Screening Interpretation: Negative Depression Screening Done: Yes 93151 - PHQ-9 Billing: Yes Source: Developed by Drs. Adonay Amaya, Louann Brito, Darien Zarco and colleagues, with an educational dee from [employer]. Thrive Questionnaire Date Thrive assessed: 05/24/24 I am a: Patient What is your living situation today?: I have a steady place to live Within the past 12 months, did the food you bought not last and you didn't have the money to get more?: Never true Within the past 12 months, did you worry whether your food would run out before you got money to buy more?: Never true Do you have trouble paying for medicines?: No Do you have trouble getting transportation to medical appointments?: No Do you have trouble paying your heating and electricity bill?: No Do you have trouble taking care of your child, family member or friend?: No Do you have trouble with day-to-day activities such as bathing, preparing meals, shopping, managing finances, etc.?: No Are you currently unemployed and looking for a job?: No Are you interested in more education?: No Please select the resources that you would like help with: None Currently or been in a relationship where the following occur: No concerns reported THRIVE Score: 0 ESTER-7 AMB Questionnaire ESTER-7 Date ESTER - 7 assessed: 07/12/24 Feeling nervous, anxious, or on edge: 0 = Not at all Not being able to stop or control worryin = Not at all Worrying too much about different things: 0 = Not at all Trouble relaxin = Not at all Being so restless that it is hard to sit still: 0 = Not at all Becoming easily annoyed or irritable: 1 = Several days Feeling afraid as if something awful might happen: 0 = Not at all Total ESTER-7 score (0-4 normal; 5-9 mild; 10-14 moderate; 15-21 severe): 1 Source: Developed by Drs. Adonay Amaya, Louann Brito, Darien Zarco and colleagues, with an educational dee from [employer]. ESTER-7 Assessment Billing ESTER-7 Assessment Tool: ESTER-7 Assessment 30900 Review of Systems Const Details: Const Denies chills, Denies fatigue, Denies fever(s), Denies headache(s) and Denies weakness ENT Denies dizziness and Denies headache(s) Card Denies chest pain, Denies lightheadedness, Denies dyspnea and Denies other (Palpitations) Resp Denies cough, Denies dyspnea, Denies wheezing and Denies other ( shortness of breath) GI Denies abdominal pain, Denies melena, Denies hematochezia, Denies change in bowel habits, Denies dyspepsia and Denies nausea Denies hematuria and Denies dysuria Musc Denies abnormal gait, Denies myalgias, Denies arthralgias, Denies numbness and Denies tingling Skin/Breast Denies rash, Denies unusual bruising and Denies wounds Neuro Denies abnormal gait, Denies dizziness, Denies headache(s), Denies memory loss, Denies numbness, Denies Sensory deficit (Neuro), Denies tingling and Denies weakness Psych Denies anxiety, Denies depression, Denies memory loss Endo Denies cold intolerance, Denies fatigue, Denies heat intolerance, Denies polydipsia and Denies polyuria Aller/Immun Denies wheezing Physical exam (Primary Care) Vital Signs: Last Vital Signs Pulse 69 07/12/24 16:26 BP 92/68 07/12/24 16:26 Pulse Ox 98 07/12/24 16:26 Oxygen Delivery Method Room Air 07/12/24 16:26 BMI result Body Mass Index 29.8 Tobacco/Smoking Status: Tobacco use Status Tobacco use date assessed 06/28/24 07/12/24 16:20 Patient Tobacco Use Status Never used Tobacco 07/12/24 16:20 e-Cigarette/Vaping Use Never Used 07/12/24 16:20 PHQ-9: PHQ-9 Score PHQ-9: Total score 0 07/12/24 16:29 Depression Screening Interpretation: Negative Thrive Assessment: Date of Thrive Assessment Date Thrive assessed 05/24/24 07/12/24 16:20 Currently or been in a relationship where the following occur: No concerns reported Const Other: General: no acute distress and well developed Nutritional Appearance: well nourished Orientation/consciousness: patient oriented x3 HENMT Head: Yes normocephalic and Yes atraumatic Eyes General: appearance normal, both eyes and all related structures Pupils: Equal, round and reactive pupils present EOM: EOMs intact bilaterally Resp Effort & Inspection: normal respiratory effort Auscultation: clear to auscultation bilaterally Cardio Rate: regular rate Rhythm: regular rhythm Heart sounds: S1 normal heart sound present, S2 normal heart sound present, no gallops, no murmurs and no rubs GI Palpation (GI): No Abdominal aortic bruit present, Soft to palpation, nontender, No hepatosplenomegaly present and No Rebound tenderness present Auscultation: normal bowel sounds General: Yes no CVA tenderness Back/Spine/Pelvis Back: no CVA tenderness Cervical Spine: cervical ROM normal and No Cervical spine tenderness Thoracic/Lumbar Spine: thoraco-lumbar ROM normal, No pain with thoraco-lumbar ROM, No thoracic spinal tenderness and No lumbar spinal tenderness Extrem General: Yes normal to inspection, No edema and No calf tenderness Skin General: warm and dry. Normal skin color. Normal skin turgor Neuro General: patient oriented x3, gait normal and no focal neuro deficit Cranial nerves: Yes Equal, round and reactive pupils present Cognition (Neuro): normal cognition Gait exam (Neuro): Normal gait present Sensory Exam: No Sensory deficit (Neuro) Psych Appearance: grossly normal Affect: normal affect Attitude: cooperative Thought process: Normal thought process present Coding Level of Care Code Est Pt Level 3 (47409) Diagnoses Anxiety and depression F41.9; F32.A Additional Codes ESTER-7 Assessment Billing - ESTER-7 Assessment Tool: ESTER-7 Assessment 39879 ([id number]) PHQ-9 - 90588 - PHQ-9 Billing: Yes ([id number]) Assessment & Plan Assessment & Plan (1) Anxiety and depression: Code(s): F41.9 - Anxiety disorder, unspecified; F32.A - Depression, unspecified Category: Medical Plan: Continue current treatment regimen. Paperwork completed for 2 daily work physical until the next 3 months. Follow-up in 3 months or sooner with symptoms or concerns. Verbalized understanding and agreed with treatment plan.
[2024-07-12 16:26] VITALS: BP 92/68; PULSE 69; O2SAT 98; BMI 29.8
== END 2024-07-12 16:40 | disposition home or self-care (01) ==
PROVIDERS: PCP Nurse Practitioner Family; Visit Provider Nurse Practitioner Family
DX: F41.9 Anxiety disorder, unspecified (principal); F32.A Depression, unspecified

== ENCOUNTER → 2024-07-12 16:03 | Outpatient (BNVA) | payer OTHER, SELFPAY | PROVIDERS: PCP Internal Medicine; Visit Provider Nurse Practitioner Family | DX: F41.9 Anxiety disorder, unspecified (principal); F32.A Depression, unspecified | CPT/HCPCS: 96127; 99212 ==

== ENCOUNTER 2024-09-29 13:02 | Outpatient (AMB) | payer OTHER, SELFPAY ==
--- NOTE | 2024-09-29 13:03 | A.OFFPC_ITS ---
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 Required: No Is last menstrual period known: Yes Last menstrual period: 09/23/24 Post menopausal: No Patient : No Allergies dyes Adverse Reaction (Severe, Uncoded 09/29/24 13:15) 3rd degree haskins fragrance Adverse Reaction (Severe, Uncoded 09/29/24 13:15) Haskins inks Adverse Reaction (Severe, Uncoded 09/29/24 13:15) Haskins Medication List - Last Reconciled 09/29/24 by Logan Garcia CNP albuterol sulfate 90 mcg/actuation 2 puffs inhalation Q4-6H PRN cholecalciferol (vitamin D3) 50 mcg PO DAILY 30 days escitalopram oxalate (Lexapro) 10 mg PO DAILY 30 days naproxen 500 mg PO BID PRN Tobacco use date assessed: 09/29/24 Dental Screening Dental Screen Date: 09/29/24 Did you have a dental visit in the last 12 months?: Yes Did you have a dental problem in the last 6 months where you did not have access to dental care?: No Was dental information given to patient?: Patient has dentist HPI HPI Comments History of Present Illness Details 39-year-old female, accompanied by her s on, presents for anxiety and depression follow-up. She reports controlled anxiety and depressive symptoms on current treatment regimen. She is waiting for her health plan to [facility]. Meanwhile, she wants to be referred to greenhouse manager/dietitian. She denies acute symptoms at this time. [facility] Medical History Right arm pain Migraine delivery delivered Anxiety PTSD (post-traumatic stress disorder) Memory loss Back problem Arthritis Surgical History Status post fusion of wrist H/O tubal ligation Family History Mother High cholesterol Father Clotting disorder Alcoholism Psychiatric disorder Paternal Grandmother Clotting disorder Paternal Grandfather Clotting disorder Family/Other Asthma Other Mental health disorder Substance abuse Social History Household Members: Family Housing: House Are you a primary customer care representative to a significant other at home: No Do you presently have visiting nurse or other home services: No Alcohol intake: never Patient Tobacco Use Status: Never used Tobacco e-Cigarette/Vaping Use: Never Used Second Hand Smoke Exposure: No service: Yes Current occupational status: 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 1. Little interest or pleasure in doing things: not at all 2. Feeling down, depressed, or hopeless: not at all 3. Trouble falling or staying asleep, or sleeping too much: not at all 4. Feeling tired or having little energy: not at all 5. Poor appetite or overeating: not at all 6. Feeling bad about yourself - or that you are a failure or have let yourself or your family down: not at all 7. Trouble concentrating on things, such as reading the newspaper or watching television: several days 8. Moving or speaking so slowly that other people could have noticed. Or the opposite - being so fidgety or restless that you have been moving around a lot more than usual: several days 9. Thoughts that you would be better off or of hurting yourself in some way: not at all Total score: 2 Depression Screening Interpretation: Negative Depression Screening Done: Yes 06770 - PHQ-9 Billing: Yes Source: Developed by Drs. Adonay Amaya, Louann Brito, Darien Zarco and colleagues, with an educational dee from [employer]. Thrive Questionnaire Date Thrive assessed: 09/29/24 I am a: Patient What is your living situation today?: I have a steady place to live Within the past 12 months, did the food you bought not last and you didn't have the money to get more?: Never true Within the past 12 months, did you worry whether your food would run out before you got money to buy more?: Never true Do you have trouble paying for medicines?: No Do you have trouble getting transportation to medical appointments?: No Do you have trouble paying your heating and electricity bill?: No Do you have trouble taking care of your child, family member or friend?: No Do you have trouble with day-to-day activities such as bathing, preparing meals, shopping, managing finances, etc.?: No Are you currently unemployed and looking for a job?: No Are you interested in more education?: No Please select the resources that you would like help with: None Currently or been in a relationship where the following occur: No concerns reported THRIVE Score: 0 AUDIT C Alcohol Use Questionnaire (AUDIT-C) 1. How often do you have a drink containing alcohol?: Never Total Score: 0 ESTER-7 AMB Questionnaire ESTER-7 Date ESTER - 7 assessed: 09/29/24 Feeling nervous, anxious, or on edge: 1 = Several days Not being able to stop or control worryin = Not at all Worrying too much about different things: 0 = Not at all Trouble relaxin = Several days Being so restless that it is hard to sit still: 1 = Several days Becoming easily annoyed or irritable: 1 = Several days Feeling afraid as if something awful might happen: 0 = Not at all Total ESTER-7 score (0-4 normal; 5-9 mild; 10-14 moderate; 15-21 severe): 4 Source: Developed by Drs. Adonay Amaya, Louann Brito, Darien Zarco and colleagues, with an educational dee from [employer]. ESTER-7 Assessment Billing ESTER-7 Assessment Tool: ESTER-7 Assessment 01647 Review of Systems Const Details: Const Denies chills, Denies fatigue, Denies fever(s), Denies headache(s) and Denies weakness ENT Denies dizziness and Denies headache(s) Card Denies chest pain, Denies lightheadedness, Denies dyspnea and Denies other (Palpitations) Resp Denies cough, Denies dyspnea, Denies wheezing and Denies other ( shortness of breath) GI Denies abdominal pain, Denies melena, Denies hematochezia, Denies change in bowel habits, Denies dyspepsia and Denies nausea Denies hematuria and Denies dysuria Musc Denies abnormal gait, Denies myalgias, Denies arthralgias, Denies numbness and Denies tingling Skin/Breast Denies rash, Denies unusual bruising and Denies wounds Neuro Denies abnormal gait, Denies dizziness, Denies headache(s), Denies memory loss, Denies numbness, Denies Sensory deficit (Neuro), Denies tingling and Denies weakness Psych Denies anxiety, Denies depression, Denies memory loss Endo Denies cold intolerance, Denies fatigue, Denies heat intolerance, Denies polydipsia and Denies polyuria Aller/Immun Denies wheezing Physical exam (Primary Care) Vital Signs: Last Vital Signs Temp 98.0 F 09/29/24 13:09 Pulse 82 09/29/24 13:09 Resp 16 09/29/24 13:09 BP 100/57 L 09/29/24 13:09 Pulse Ox 96 09/29/24 13:09 Oxygen Delivery Method Room Air 09/29/24 13:09 BMI result Body Mass Index 30.3 Tobacco/Smoking Status: Tobacco use Status Tobacco use date assessed 09/29/24 09/29/24 13:12 Patient Tobacco Use Status Never used Tobacco 09/29/24 13:08 e-Cigarette/Vaping Use Never Used 09/29/24 13:08 PHQ-9: PHQ-9 Score PHQ-9: Total score 2 09/29/24 13:08 Depression Screening Interpretation: Negative Thrive Assessment: Date of Thrive Assessment Date Thrive assessed 09/29/24 09/29/24 13:08 Currently or been in a relationship where the following occur: No concerns reported Const Other: General: no acute distress and well developed Nutritional Appearance: well nourished Orientation/consciousness: patient oriented x3 HENMT Head: Yes normocephalic and Yes atraumatic Eyes General: appearance normal, both eyes and all related structures Pupils: Equal, round and reactive pupils present EOM: EOMs intact bilaterally Resp Effort & Inspection: normal respiratory effort Auscultation: clear to auscultation bilaterally Cardio Rate: regular rate Rhythm: regular rhythm Heart sounds: S1 normal heart sound present, S2 normal heart sound present, no gallops, no murmurs and no rubs GI Palpation (GI): No Abdominal aortic bruit present, Soft to palpation, nontender, No hepatosplenomegaly present and No Rebound tenderness present Auscultation: normal bowel sounds General: Yes no CVA tenderness Back/Spine/Pelvis Back: no CVA tenderness Cervical Spine: cervical ROM normal and No Cervical spine tenderness Thoracic/Lumbar Spine: thoraco-lumbar ROM normal, No pain with thoraco-lumbar ROM, No thoracic spinal tenderness and No lumbar spinal tenderness Extrem General: Yes normal to inspection, No edema and No calf tenderness Skin General: warm and dry. Normal skin color. Normal skin turgor Neuro General: patient oriented x3, gait normal and no focal neuro deficit Cranial nerves: Yes Equal, round and reactive pupils present Cognition (Neuro): normal cognition Gait exam (Neuro): Normal gait present Sensory Exam: No Sensory deficit (Neuro) Psych Appearance: grossly normal Affect: normal affect Attitude: cooperative Thought process: Normal thought process present Coding Level of Care Code Est Pt Level 3 (90163) Diagnoses Anxiety and depression F41.9; F32.A Vitamin D deficiency E55.9 Obesity (BMI 30.0-34.9) E66.9 Laboratory tests ordered as part of a complete physical exam (CPE) Z00.00 Additional Codes PHQ-9 - 76306 - PHQ-9 Billing: Yes ([id number]) ESTER-7 Assessment Billing - ESTER-7 Assessment Tool: ESTER-7 Assessment 83057 ([id number]) Assessment & Plan Assessment & Plan (1) Anxiety and depression: Code(s): F41.9 - Anxiety disorder, unspecified; F32.A - Depression, unspecified Category: Medical Plan: Controlled anxiety and depressive symptoms. She generally sleeps well. PHQ-9 and ESTER-7 score is normal. Continue current treatment regimen. Advised to get fasting lipid panel blood work done before her next visit. Follow-up in 1 month for an extended physical exam and labs review or sooner with symptoms or concerns. Verbalized understanding and agreed with treatment plan. (2) Vitamin D deficiency: Code(s): E55.9 - Vitamin D deficiency, unspecified Category: Medical Plan: Recent vitamin-D level on June is low, 21.4. Continue to take vitamin D3 50 mcg daily. Encouraged to get vitamin-D 3 blood work done today. Will review results and make changes as needed. Verbalized understanding and agreed with treatment plan. (3) Obesity (BMI 30.0-34.9): Code(s): E66.9 - Obesity, unspecified Category: Medical Plan: She currently weighs 188 lb, BMI is 30.3. Healthy diet and routine exercise encouraged. Referred to greenhouse manager/dietitian as requested. Follow-up as needed. Verbalized understanding and agreed with treatment plan. (4) Laboratory tests ordered as part of a complete physical exam (CPE): Code(s): Z00.00 - Encounter for general adult medical examination without abnormal findings Category: Medical Plan: Fasting labs ordered as part of a complete physical exam. Advised to fast for at least 10 hours before getting labs drawn. May drink water Verbalized understanding and agreed with treatment plan. Orders: Orders Vitamin D 25-OH Total Today E55.9 - Vitamin D deficiency, unspecified Microalbumin, Random (w Creat) Today Z00.00 - Encounter for general adult medical examination without abnormal findings Lipid Panel Today Z00.00 - Encounter for general adult medical examination without abnormal findings Referrals Nutrition/Dietitian Referral E66.9 - Obesity, unspecified
[2024-09-29 13:09] VITALS: BP 100/57; PULSE 82; RESP 16; TEMP 36.7; O2SAT 96; BMI 30.3
== END 2024-09-29 13:31 | disposition home or self-care (01) ==
PROVIDERS: PCP Nurse Practitioner Family; Visit Provider Nurse Practitioner Family
DX: E55.9 Vitamin D deficiency, unspecified (principal); F41.9 Anxiety disorder, unspecified; E66.9 Obesity, unspecified; Z68.30 Body mass index [BMI] 30.0-30.9, adult; F32.A Depression, unspecified

== ENCOUNTER → 2024-09-29 13:02 | Outpatient (BNVA) | payer OTHER, SELFPAY | PROVIDERS: PCP Nurse Practitioner Family; Visit Provider Nurse Practitioner Family ==

== ENCOUNTER 2024-09-29 13:24 | Outpatient (REF) | payer OTHER, SELFPAY ==
[2024-09-29 18:18] LABS: Cholesterol 139 mg/dL (<200); HDL Cholesterol 61 mg/dL (>40); LDL Cholesterol Calculated 71 mg/dL (<100); Triglycerides 38 mg/dL (<150)
[2024-09-29 18:21] LABS: Microalbumin Urine < 5.0 mg/L
[2024-09-29 18:37] LABS: Vitamin D 25-OH Total 30.3 ng/mL (>30)
== END 2024-09-29 13:25 | disposition home or self-care (01) ==
LOC: HO.WFDLDS 13:24
PROVIDERS: Visit Provider Nurse Practitioner Family
DX: F41.9 Anxiety disorder, unspecified (principal); F32.A Depression, unspecified; E55.9 Vitamin D deficiency, unspecified; E66.9 Obesity, unspecified; Z68.30 Body mass index [BMI] 30.0-30.9, adult; Z79.899 Other long term (current) drug therapy; Z00.00 Encounter for general adult medical examination without abnormal findings
CPT/HCPCS: 36415; 80061; 82306; 82570; 96127; 99212

== ENCOUNTER 2024-11-03 08:08 | Outpatient (AMB) | payer OTHER, SELFPAY ==
--- OUTSIDE RECORDS SUMMARY | 2024-11-03 08:14 | XMS_ITS | Continuity of Care Document ---
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 It does not include entries that were removed or entered in error. 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) Active Condition [facility] Muscle Spasm (ICD-9-CM 728.85) Active Condition [facility] Other and unspecified Bipolar disorders, other (ICD-9-CM 296.89) Active Condition [facility] Other tenosynovitis of hand and wrist Active Condition [facility] Acute upper respiratory infection Active Condition [address] [place] [address] Backache Active Condition [address] [place] [address] Myopia, bilateral Active Condition 0310 C[facility] Chronic pain Active Condition [address] [place] [address] 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 will return to for more intense therapy. patient explained at lenght aboput pathophysioogy and treatment [address] [place] [address] Regular astigmatism, left eye Active Condition -AF-C -[facility] Sprain of thumb Active Condition [address] [place] [address] Synovitis/tenosyn ovitis - hand2 Active Condition Outside [facility] e Comment: sent to PT. MORRIS. change antiinflamatory. follow up 3 weeks pendingphysical therapy [address] [place] [address] Tendinitis3 Active Condition Outside Source Comment: Ongoing care at [facility] ortho [address] [place] [address] Tenosynovitis4 Active Condition Outsi de Source Comment: L wrist- appt w/ hand surgeon pending January 01, 2006- pt will f/u w/ us after this appt complete.\r\n [address] [place] [address] Thoracic spondylosis Active Condition [address] [place] [address] Tortuous retinal vein Active Condition -AF-C -66 [facility] Vesicular eczema5 Active Condition O[facility]side Source Comment: eucerin or cetaphil cream/lotion to area after each hand washing if not improved 2 weeks with steroid and moisture, RTC [address] [place] [address] Medications Combined list of outpatient medications from Department of Defense and Veterans Affairs facilities.Medications provided include 1) outpatient medications from the last 15 months, and 2) patient-reported medications. Medication Details Route Status Patient Instructions Prescription Expires Prescription Number Last Dispense Date Ordering Provider Order Date Order Qty Source MULTIVITAMI NS TAB TAKE BY MOUTH ORAL ACTIVE INHABER,F RANCINE R 2006 [facility] Immunizations Combined list of available immunizations from the Department of Defense and Veterans Affairs facilities. Immunization Series Date Given Administered By Site Reaction Lot Number CVX Code Drug Emergency Management Director Status Comments Source influenza, seasonal, injectable 2021 ROXANAMATOS [id number] complet ed Result Comment: Route: Unknown Manufactu rer: OTH (SEQ) 7239C-S [facility] wer tetanus-dipht h toxoids (Td) adult/adol 2021 ROXANAMATOS [id number] complet ed Result Comment: Route: Unknown Manufactu rer: OTH (PMC) 7239CS [facility] Influenza, inj, MDCK, quadrivalent- pf 2020 ROXANAMATOS 171 complet ed Result Comment: Route: Unknown Manufactu rer: OT (SEQ) 7239CS [facility] wer influenza, seasonal, injectable 2019 ROXANAMATOS TRANSCR IBED 141 complet ed Result Comment: Route: Unknown Manufactu rer: Transcrib ed (TRS) [facility] [place] [place] Influenza, inj, MDCK, quadrivalent- pf 2019 ROXANAMATOS 171 complet ed Result Comment: Unit: Unknown [facility]r: () [facility], inactivated 2019 ROXANAMATOS 88 complet ed Result Comment: Route: Unknown Manufactu rer: [facility] (SEQ) [facility] [place] [place] Influenza, inj, MDCK, quadrivalent- pf 2018 171 [...] e 05/28/18 Given Ambulat ory Pharmac y influenza, seasonal, injectable-pf 2016 TRANSCR IBED 140 complet ed influenza , seasonal, injectabl e-pf 05/26/17 Given Ambulat ory Pharmac y influenza, seasonal, injectable-pf 2016 TRANSCR IBED 140 complet ed influenza , seasonal, injectabl e-pf 05/26/17 Given Ambulat ory Pharmac y Influenza, inj, MDCK, quadrivalent- pf 2016 ROXANAMATOS 171 complet ed Result Comment: Unit: Unknown Manufactu rer: () 7239C-S [facility] influenza, seasonal, injectable-pf 2015 TRANSCR IBED 140 complet ed influenza , seasonal, injectabl e-pf 04/29/16 Given Ambulat ory Pharmac y influenza, seasonal, injectable-pf 2015 TRANSCR IBED 140 complet ed influenza , seasonal, injectabl e-pf 04/29/16 Given Ambulat ory Pharmac y influenza, injectable, quadrivalent- pf 2015 ROXANAMATOS 150 complet ed Result Comment: Unit: Unknown Manufactu rer: () 7239C-S [facility] influenza virus vaccine, live 2014 [id number] sanofi pasteur complet ed influenza virus vaccine, live 06/02/15 Given Ambulat ory Pharmac y influenza virus vaccine, live 2014 [id number] 111 sanofi pasteur complet ed influenza virus vaccine, live 06/02/15 Given Ambulat ory Pharmac y influenza, live, intranasal,qu adrivalent 2014 [id number] 149 CSL [employer]ring complet ed influenza , live, intranasa l,quadriv alent 06/01/15 Given Ambulat ory Pharmac y influenza, live, intranasal,qu adrivalent 2014 [id number] 149 C[employer] [facility] complet ed influenza , live, intranasa l,quadriv alent 06/01/15 Given Ambulat ory Pharmac y influenza, seasonal, injectable-pf [id number] CSL [facility]ring complet ed influenza , seasonal, injectabl e-pf 04/11/14 Given Ambulat ory Pharmac y influenza, seasonal, injectable-pf 2012 [id number] 140 Novartis Pharm[employer] ls complet ed influenza , seasonal, injectabl e-pf 05/30/13 Given Ambulat ory Pharmac y influenza, seasonal, injectable-pf 2012 [id number] 140 Nov[employer] Pharm[employer] ls complet ed influenza , seasonal, injectabl e-pf 05/30/13 Given Ambulat ory Pharmac y INFLUENZA, UNSPECIFIED FORMULATION 2012 88 complet ed [facility] influenza, seasonal, injectable-pf 2011 TRANSCR IBED 140 complet ed influenza , seasonal, injectabl e-pf 04/24/12 Given Ambulat ory Pharmac y influenza, seasonal, injectable-pf 2011 TRANSCR IBED 140 complet ed influenza , seasonal, injectabl e-pf 04/24/12 Given Ambulat ory Pharmac y tetanus, diphtheria, acellular pertu is 2011 [id number] 115 sanofi pasteur complet ed tetanus, diphtheri a, acellular pertussis 02/08/12 Given Ambulat ory Pharmac y tetanus, diphtheria, acellular pertu is 2011 [id number] 115 sanofi pasteur complet ed tetanus, diphtheri a, acellular pertussis 02/08/12 Given Ambulat ory Pharmac y influenza virus vaccine, live 2010 [id number] 111 Medimmune Inc comple t ed influenza virus vaccine, live 05/18/11 Given Ambulat ory Pharmac y influenza virus vaccine, live 2010 [id number] 111 [employer] Inc comple t ed influenza virus vaccine, live 05/18/11 Given Ambulat ory Pharmac y influenza virus vaccine,split 2010 [id number] 15 CSL [facility]ring complet ed influenza virus vaccine,s plit 12/09/10 Given Ambulat ory Pharmac y influenza virus vaccine,split 2010 [id number] 15 C[employer] [facility] complet ed influenza virus vaccine,s plit 12/09/10 Given Ambulat ory Pharmac y HPV, QUADRIVALENT 2009 62 complet ed [facility] INFLUENZA, UNSPECIFIED FORMULATION 2009 88 complet ed [facility] HPV, QUADRIVALENT 2008 62 complet ed [facility] INFLUENZA, UNSPECIFIED FORMULATION 2007 88 complet ed [facility] influenza virus vaccine,split 2006 [id number] 15 sanofi pasteur complet ed influenza virus vaccine,s plit 06/27/07 Given Ambulat ory Pharmac y influenza virus vaccine,split 2006 [id number] 15 sanofi pasteur complet ed influenza virus vaccine,s plit 06/27/07 Given Ambulat ory Pharmac y tuberculin purified protein derivative 2004 [id number] 96 [facility] complet ed tuberculi n purified protein derivativ e 07/05/05 Given Ambulat ory Pharmac y influenza virus vaccine, live 2004 [id number] 111 Med[employer] Inc comple t ed influenza virus vaccine, live 05/01/05 Given Ambulat ory Pharmac y influenza virus vaccine, live 2004 [id number] 111 Med[employer] Inc comple t ed influenza virus vaccine, live 05/01/05 Given Ambulat ory Pharmac y influenza virus vaccine, whole virus 2004 [id number] 16 sanofi pasteur complet ed influenza virus vaccine, whole virus 12/06/04 Given Ambulat ory Pharmac y influenza virus vaccine, whole virus 2004 [id number] 16 sanofi pasteur complet ed influenza virus vaccine, whole virus 12/06/04 Given Ambulat ory Pharmac y TETANUS DIPHTHERIA ADULT (HISTORICAL) 2004 139 complet ed [facility] tuberculin purified protein derivative 2003 [id number] 96 Unknown complet ed tuberculi n purified protein derivativ e 05/02/04 Given Ambulat ory Pharmac y influenza virus vaccine, whole virus 2002 [id number] 16 sanofi pasteur complet ed influenza virus vaccine, whole virus 07/12/03 Given Ambulat ory Pharmac y influenza virus vaccine, whole virus 2002 [id number] 16 sanofi pasteur complet ed influenza virus vaccine, whole virus 07/12/03 Given Ambulat ory Pharmac y hepatitis A adult vaccine 2002 [id number] 52 [employer]ck & [employer] Inc complet ed hepatitis A adult vaccine 11/08/02 Given Ambulat ory Pharmac y hepatitis A adult vaccine 2002 [id number] 52 Merck & Company Inc complet ed hepatitis A adult vaccine 11/08/02 Given Ambulat ory Pharmac y typhoid Vi capsular polysaccharid e vac 2002 [id number] 101 sanofi pasteur complet ed typhoid Vi capsular polysacch aride vac 09/03/02 Given Ambulat ory Pharmac y yellow fever vaccine 2002 [id number] 37 sanofi pasteur complet ed yellow fever vaccine 09/03/02 Given Ambulat ory Pharmac y typhoid Vi capsular polysaccharid e vac 2002 [id number] 101 sanofi pasteur complet ed typhoid Vi capsular polysacch aride vac 09/03/02 Given Ambulat ory Pharmac y yellow fever vaccine 2002 [id number] 37 sanofi pasteur complet ed yellow fever vaccine 09/03/02 Given Ambulat ory Pharmac y influenza virus vaccine, whole virus 2001 [id number] 16 sanofi pasteur complet ed influenza virus vaccine, whole virus 05/01/02 Given Ambulat ory Pharmac y influenza virus vaccine, whole virus 2001 [id number] 16 sanofi pasteur complet ed influenza virus vaccine, whole virus 05/01/02 Given Ambulat ory Pharmac y hepatitis A adult vaccine 2001 [id number] 52 GlaxoSmithKli ne complet ed hepatitis A adult vaccine 04/09/02 Given Ambulat ory Pharmac y varicella virus vaccine 2001 [id number] 21 Merck & Company Inc complet ed varicella virus vaccine 04/09/02 Given Ambulat ory Pharmac y hepatitis A adult vaccine 2001 [id number] 6 52 GlaxoSmithKli ne complet ed hepatitis A adult vaccine 04/09/02 Given Ambulat ory Pharmac y varicella virus vaccine 2001 [id number] 21 Merck & Company Inc complet ed varicella virus vaccine 04/09/02 Given Ambulat ory Pharmac y tuberculin purified protein derivative 2001 [id number] 96 sanofi pasteur complet ed tuberculi n purified protein derivativ e 04/02/02 Given Ambulat ory Pharmac y poliovirus vaccine, inactivated 2001 [id number] 10 sanofi pasteur complet ed polioviru s vaccine, inactivat ed 04/02/02 Given Ambulat ory Pharmac y tetanus-dipht h toxoids (Td) adult/adol 2001 [id number] 09 sanofi pasteur complet ed tetanus-d iphth toxoids (Td) adult/ado l 04/02/02 Given Ambulat ory Pharmac y meningococcal polysaccharid e (MPSV4) 2001 [id number] 32 sanofi pasteur complet ed meningoco ccal polysacch aride (MPSV4) 04/02/02 Given Ambulat ory Pharmac y meningococcal polysaccharid e (MPSV4) 2001 [id number] 32 sanofi pasteur complet ed meningoco ccal polysacch aride (MPSV4) 04/02/02 Given Ambulat ory Pharmac y tetanus-dipht h toxoids (Td) adult/adol 2001 [id number] 09 sanofi pasteur complet ed tetanus-d iphth toxoids (Td) adult/ado l 04/02/02 Given Ambulat ory Pharmac y poliovirus vaccine, inactivated 2001 [id number] 10 sanofi pasteur complet ed polioviru s vaccine, inactivat ed 04/02/02 Given Ambulat ory Pharmac y Results Combined list of recent chemistry, hematology and other laboratory results from Department of Defense and Veterans Affairs, ranging from 15 months to all on record, depending upon the facility. Order Name Results Value Reference Range Date Interpretation Specimen Comments Source Infectio us Disease HIV-1/O/2 Non-Reac tive 4 (08/18/24 9:10 AM) 08/18 N Interpretiv e Data: INTERPRETAT ION: This method is a screening procedure for the detection of HIV p24 Antigen and Antibodies to HIV-1, including Group O, and/or HIV-2. NON-REACTIV E: HIV-1 antigen and HIV-1 / HIV-2 antibodies were not detected. No laboratory evidence of HIV infection. A negative test result does not exclude the possibility of exposure to or infection with HIV. HIV antibodies and/or p24 antigen may be undetectabl e in some stages of the infection and in some clinical conditions. If acute HIV infection is suspected, consider submitting another specimen to a reference laboratory for HIV-1 RNA. SCREEN REACTIVE - CONFIRMATIO N TO FOLLOW: Possible presence of HIV-1antibo dies, HIV-2 antibodies and/or HIV-1 p24 antigen. Specimen will reflex to the confirmatio n testing that fulfills the Center for Disease Control and Prevention' s HIV diagnostic algorithm. Refer to [facility] Lab Guide for additional information : [email or web address] [email or web address].[email or web address]/ [email or web address]/[email or web address]/EPIL ab/Pages/la b_guide.asp x Testing performed by [employer] filomenauminmike ce. 5600A-Des[facility] Pamelacella jjus Sendouts Repository Sample Received (08/18/24 9:10 AM) 08/18 N Snapt[facility]-[place] [facility] EPILAB Chemistr y eGFR CKD EPI 84 mL/min/1 .73_m2 09/09 Interpretiv e Data: Estimated Glomerular Filtration [...] G4 Severe decrease <15 G5 Kidney failure 7[facility] Chem[facility]r y AGAP 6 mmol/L 8 - 16 09/09 L [facility] Chem[facility] y Albumin 4.1 g/dL 3.5 - 5.0 09/09 N [facility] Sodium 136.0 mmol/L 135.0 - 146.0 09/[address] [place] [address] [facility] Chemistr y Creatinine Level 0.9 mg/dL 0.3 - 1.2 09/[address] [place] [address] [facility] Chemistr y Alk Phos 47 IU/mL 38 - 126 09/[address] [place], [place] [address] Chemistr y Protein Total 7.4 g/dL 6.4 - 8.3 09/[address] [place], [place] [address] Chemistr y Calcium 10.1 mg/dL 8.9 - 10.3 09/[address] [place] [address] [facility] Chemistr y Chloride 103 mmol/L 101 - 111 09/[address] [place] [address] [facility] Chemistr y BUN/Creat Ratio 20.0 12.0 - 20.0 09/[address] [place] [address] [facility] Chemist[facility] y ALT 19 IU/mL 14 - 54 09/[address] [place], [place] [address] Chemistr y Glucose Lvl 89 mg/dL 70 - 100 09/[address] [place] [address] [facility] Chem[facility] y AST 24 IU/mL 15 - 41 09/[address] [place], [place] [address] Chemistr y A/G Ratio 1.2 1.1 - 2.5 09/[address] [place] [address] [facility] Chemistr y CO2 27 mmol/L 20 - 34 09/[address] [place], [place] [address] Chemistr y Bilirubin Total 1.0 mg/dL 0.2 - 1.0 09/[address] [place] [address] [facility] Chemist[facility] y Potassium Lvl 4.5 mmol/L 3.6 - 5.1 09/[address] [place] [address] [facility] Chemistr y BUN 18 mg/dL 6 - 23 09/[address] [place], [place] [address] Chemistr y TSH, Sensitive 0.809 mIU/L 0.300 - 3.000 09/09 N [facility] Chemistr y T4 Free 0.9 ng/dL 0.6 - 1.6 09/09 N 004-[facility] Hematolo gy ESR.LC 25 mm/h 06/05 Result Comment: Performed At: [facility] [address] [place], [place] [id number] Sami Andersen MD Ph:[phone] 39[facility] Immunolo gy/Serol ogy RF Qnt <15 IU/mL 1 - 31 06/05 N [facility] Immunolo gy/Serol ogy SS-B Ab.LC <0.2 AI 06/04 Result Comment: Performed At: [facility] [address] [place], [place] [id number] Sami Andersen MD Ph:[phone] [place] [address] [facility] Immunolo gy/Serol ogy SS-A Ab.LC <0.2 AI 06/[address] [place] [address] [facility] Immunolo gy/Serol ogy RA Latex Turbidity LC <10.0 IU/mL 06/04 Result Comment: Performed At: [facility] [address] [place], [place] [id number] Sami Andersen MD Ph:[phone] [place] [address] [facility] Vital Signs Combined list of inpatient and outpatient Vital Signs from Department of Defense and Veterans Affairs, ranging from 12 months to all on record, depending upon the facility. Vital Sign Value Date Comments Source Temperature Temporal Artery 36.3 Marta 06/04/2022 16:58:[address] [place] [address] [facility] Mean Arterial Pressure, Calc 81 mm[Hg] 06/04/2022 16:58:[address] [place] [address] Respiratory Rate 16 br/min 06/04/2022 16:58:[address] [place] [address] Systolic Blood Pressure 108 mm[Hg] 06/04/2022 16:58:00 [facility] Diastolic Blood Pressure 67 mm[Hg] 06/04/2022 16:58:[address] [place] [address]-[facility] BP Site Left arm 06/04/2022 16:58:[address] [place] [address]-[facility] Blood Pressure Manual Automatic 06/04/2022 16:58:[address] [place] [address] Peripheral Pulse Rate 67 bpm 06/04/2022 16:58:[address] [place] [address] Respiratory Rate 17 br/min 09/09/2022 14:12:[address] [place] [address] Systolic Blood Pressure 119 mm[Hg] 09/09/2022 14:12:[address] [place] [address] Diastolic Blood Pressure 78 mm[Hg] 09/09/2022 14:12:[address] [place] [address] Temperature Temporal Artery 35.1 Marta 09/09/2022 14:12:[address] [place] [address]-[facility] BP Site Left arm 09/09/2022 14:12:[address] [place] [address] Mean Arterial Pressure, Calc 92 mm[Hg] 09/09/2022 14:12:[address] [place] [address] Peripheral Pulse Rate 79 bpm 09/09/2022 14:12:[address] [place] [address] Blood Pressure Manual Automatic 09/09/2022 14:12:[address] [place] [address] Systolic Blood Pressure 116 mm[Hg] 05/20/2022 17:58:[address] [place] [address] Diastolic Blood Pressure 75 mm[Hg] 05/20/2022 17:58:[address] [place] [address] Respiratory Rate 15 br/min 05/20/2022 17:58:[address] [place] [address] Blood Pressure Manual Automatic 05/20/2022 17:58:[address] [place] [address] Peripheral Pulse Rate 81 bpm 05/20/2022 17:58:00 [facility] Mean Arterial Pressure, Calc 89 mm[Hg] 05/20/2022 17:58:00 [facility] BP Site Left arm 05/20/2022 17:58:00 7239 [facility] Temperature Temporal Artery 36.4 Marta 05/20/2022 17:58:00 [facility] Encounters Combined list of: 1) Encounters from Department of Veterans Affairs facilities going backup to the last 18 months, not all [place] inpatient encounters are included; 2) Encounters from the Department of [facility] facilities going backup to 280 months. Location Location Details Encounter Type Encounter Number Reason For Visit Attending Provider ADM Date DC Date Status Disposition Source [id number] [facility] Dental [id number] DOMITILA TOMASOND 08/27 Discharge Disposition: Home or Self Care [id number] 39 [facility] [id number] [facility] Outpatient [id number] MICH ARLETTE 08/27 Discharge Disposition: Home or Self Care [id number] [facility] [id number] [facility] Care Not Rendered [id number] 09/28 Discharge Disposition: Home or Self Care 8344R-4 39 [facility]DS 0310C-AF- C[facility] Between Visit [id number] 10/29 Discharge Disposition: Home or Self Care 0310C-A F-C-66t [facility] 0310C-AF- C-[facility] Between Visit [id number] 11/02 Discharge Disposition: Home or Self Care 0310C-A F-C-66t [facility] Procedures Combined list of: 1) Procedures from Department of Veterans Affairs facilities going back up to thelast 18 months, not all [place] non-surgical procedures are included; 2) All procedures from the Department of [facility] facilities. Procedure Procedure Type Code Date Perfomer Comments Sourc e Wrist hand orthosis, wrist extension control cock-up, non molded, prefabricated, [id number] [facility] Wrist hand orthosis, wrist extension control cock-up, non molded, prefabricated, [id number]-olqlh [address] [place] [address] [facility] Removal of skin tags, multiple fibrocutaneous tags, any area; up to and including 15 lesions Removal of skin tags, multiple fibrocutaneous tags, any area; up to and including [id number] [place] [address] Psychiatric diagnostic evaluation with medical services Psychiatric diagnostic evaluation with medical services [id number] [place] [address] Psychiatric diagnostic evaluation Psychiatric diagnostic evaluation [id number] [place] [address] -[facility] [address] [place] [address] Wrist hand orthosis, wrist extension control cock-up, non molded, prefabricated, off-the-sh f [address] [place] [address]-[facility] Psychotherapy, 60 minutes with patient and/or family member Psychotherapy, 60 minutes with patient and/or family member [id number] [place] [address] Psychotherapy, 30 minutes with patient and/or family member when performed with an evaluation and management service (List separately in addition to the code for primary procedure) Psychotherapy, 30 minutes with patient and/or family member when performed with an evaluation and management service (List separately in addition to the code for primary procedure) [id number] [place] [address]-[facility] Physician [facility] [address] [place] [address] Wrist hand orthosis, wrist extension control cock-up, non molded, pr efabricated, iju-gey-katyg [address] [place] [address] Psychotherapy, 45 minutes with patient and/or family member Psychotherapy, 45 minutes with patient and/or family member [id number] [place] [address] Psychotherapy, 30 minutes with patient and/or family member Psychotherapy, 30 minutes with patient and/or family member [id number] [place] [address]-[facility] Group psychotherapy (other than of a multiple-family group) Group psychotherapy (other than of a multiple-family group) [id number] [place] [address]-[facility] Wrist hand orthosis, wrist extension control cock-up, non molded, prefabricated, off-th e-shelf [id number] Waiver services; not otherwise specified (NOS) [address] [place] [address]-[facility] No Procedure information available for data migration. [address] [place] [address]-[facility] Brief emotional/behavioral a e ment (eg, depre ion inventory, attention-deficit/hype ractivity disorder [ADHD] scale), with scoring and documentation, per standardized instrument Brief emotional/behavioral assessment (eg, depression inventory, attention-deficit/hyp eractivity disorder [ADHD] scale), with scoring and documentation, per standardized instrument [id number] [place] [address]-[facility] Wrist hand orthosis, wrist extension control cock-up, non molded, prefabricated, tod-hzn-tyceu 7239[facility] Social History Combined list of available smoking, tobacco, and other social history from Department of Defense and Veterans Affairs facilities. Social History Type Response Date Comment Sourc e Sex Representation Female (finding) 03/29/2020 Unknown Organization Tobacco smoking status NHIS LIFETIME NON-USER OF TOBACCO 01/27/2014 [facility] History of tobacco use LIFETIME NON-USER OF TOBACCO 04/27/2013 [facility] History of tobacco use LIFETIME NON-USER OF TOBACCO 09/17/2011 [facility] History of tobacco use LIFETIME NON-USER OF TOBACCO 09/12/2010 [facility] History of tobacco use LIFETIME NON-USER OF TOBACCO 09/14/2009 [facility] History of tobacco use LIFETIME NON-USER OF TOBACCO 11/18/2008 [facility] History of tobacco use LIFETIME NON-USER OF TOBACCO 01/27/2008 [facility] History of tobacco use LIFETIME NON-USER OF TOBACCO 01/09/2007 [facility] History of tobacco use LIFETIME NON-USER OF TOBACCO 10/27/2006 [facility] Tobacco Never-cigarette user Cigarette use:. Never-other tobacco user (not cigarettes) Other Tobacco use:. Ambulatory Pharmacy Sexual Orientation Ambula tory Pharmacy Gender identity Ambulator y Pharmacy Assessment and Plan Combined list of future care activities from Department of Defense and Veterans Affairs facilities (e.g., assessment and plan notes, appointments, orders, and referrals). Additional future care activities may be listed in the Plan of Care section. 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 Last Name: VERONICA 2. First Name: GUILLERMINA 3. Middle Name: Quan 4. Assessment Date: 5. : 6. Age: 39 7. Sex: F 8. DoD ID Number: [id number] 9. Service Branch: [employer] 10. 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 Unit Name: [employer] 14. Duty Station/Location: [place] 15. UIC: [id number] 16. Is this your first Periodic Health Assessment (PHA)?: N 17. Are you enrolled in a secure messaging system with your health care provider?: Y 18. Current contact information: Preferred Method: Email 1 DSN: [id number] Day Time Phone: [phone] Night Time Phone: [phone] Email 1: [email or web address] Email 2: [email or web address] Address: [address] [place] [address]: [facility]: [place] Zip Code: [address] 19. Point of contact who can always reach you: Name: Truong Healy Phone 1: [phone] Phone 2: EMAIL: [email or web address] Address: [address] [place] [address]: [facility]: [place] Zip Code: [address] II. DEPLOYMENT INFORMATION (DEP) 1. [ 0 ] Total number of deployments in the PAST 5 YEARS 4. [ N ] Are you going to deploy within the NEXT 120 DAYS? III. 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 [ No ] Does your specialty require an operational duty physical exam? 4. [ Don't Know ] Are you currently enrolled in a medical surveillance/occupational health program?: Don't Know IV. MEDICAL CONDITIONS (THAD): 1. Since your last PHA, have you experienced any of the following health conditions, and if so, what is your status? [ ] Conditions with no medical care [ ] Conditions with medical care, but no longer under treatment [ ] Conditions with medical care, and NOW under treatment 2. Since your last PHA, have you experienced any of the following health conditions, and if so, what is your status? [ ] Conditions with no medical care [ ] Conditions with medical care, but no longer under treatment [ Wheezing, shortness of breath, Recurring muscle, joint, or low back pain, Recurring headaches/migraines, Blood problems, Tooth or gum problems/pain ] Conditions with medical care, and NOW under treatment 3. For any condition marked YES in question 1 or 2, are you currently on any profile or limited duty for that condition? [ Wheezing, shortness of breath, Recurring muscle, joint, or low back pain ] Conditions 4. [ No ] Have you been based or stationed at a location where an open burn pit was used? 5. [ Not Sure ] Have you been exposed to toxic airborne chemicals or other airborne contaminants? 6. [ No ] Are you enrolled in the Airborne Hazards and Open Burn Pit Registry? 7. [ No ] Federal law requires eligible members to enroll in the Airborne Hazards and Open Burn Pit Registry or opt-out. If eligble, choose one: 8. Have you had any surgery since your last PHA?: No 10.a. [ No ] Since your last PHA, has a health care provider recommended surgery(s) that you have not had? 11.a. [ No ] Do you currently require hearing aids, special medical supplies, CPAP, adaptive equipment, assistive technology devices, and/or other special accommodations? 12.a. [ Yes ] Do you have a waiver or profile for any part of your Service's physical fitness test? 12.b. [ Body Composition AnalysisCardio Event, Crunches/Sit-Ups, Push-Ups ] Which component(s) of your physical fitness test are waived/profiled? 13.a. [ No ] Do you have any problems wearing a gas mask, ballistic helmet, body armor, and/or chemical/biological protective garments? 14.a. [ No ] Have you ever been told by a health care provider that you SHOULD NOT receive an immunization for medical reasons? 15.a. [ Don't Know ] Do you have a permanent profile or an Assignment Limitation Code C? 16.a. [ No ] Are you on a temporary profile or limited duty? 17. [ 0 ] During the PAST 2 years, how many times have you been placed on a temporary profile or on limited duty? V. INDIVIDUAL MEDICAL READINESS (IMR) 1. [ Yes ] Do you have any allergies? 2. [ PPD Para-phenylenediamine and Fragrance (Parfu ] Allergy List 3. [ Not required ] Do you have red medical warning dog tags? 4. [ Yes ] Do you wear corrective lenses? 5. [ 2 or more ] How many pairs of glasses do you have? 6. [ No ] Do you have gas mask inserts? . BEHAVIORAL HEALTH (MHA) 1. a. [ None ] Over the PAST MONTH, what major life stressors have you experienced that are a cause of significant concern or make it difficult for you to do your work, take care of things at home, or get along with other people (for example, serious conflicts with others, relationship problems, or a legal, disciplinary or financial problem)? 2. a. [ Yes PTSD, anxiety disorder, depression ] In the PAST YEAR did you receive care for any mental health condition or concern such as, but not limited to post traumatic stress disorder (PTSD), depression, anxiety disorder, alcohol abuse or substance abuse? 3. [ Yes Escitalopram (Lexapro) 10mg ] What prescription or over-the counter medications (including herbals/supplements) for sleep, pain, combat stress, or a mental health problem are you CURRENTLY taking? 4. a. [ No ] In the past 12 months, have you gambled? 5. a. [ Monthly or less ] How often do you have a drink containing alcohol? 5. b. [ 1 or 2 ] How many drinks containing alcohol do you have on a typical day when you are drinking? 5. c. [ Never ] How often do you have six or more drinks on one occasion? 6. Have you ever had any experience that was so frightening, horrible, or upsetting that in the PAST MONTH, you: 6. a. [ No ] Have had nightmares about it or thought about it when you did not want to? 6. b. [ No ] Tried hard not to think about it or went out of your way to avoid situations that remind you of it? 6. c. [ No ] Were constantly on guard, watchful or easily startled? 6. d. [ No ] [place] numb or detached from others, activities, or your surroundings? 6. e. [ Not answered ] [place] guilt or unable to stop blaming yourself or others for the event(s) or any problems the event(s) may have caused? 7. Over the LAST 2 WEEKS, how often have you been bothered by the following problems? 7. a. [ Few or several days ] Little interest or pleasure in doing things 7. b. [ Few or several days ] Feeling down, depressed, or hopeless 8. [ No ] Would you like to schedule an appointment with a health care provider to discuss any health concern(s)? 9. [ Yes ] Are you interested in receiving information or assistance for a stress, emotional or alcohol concern? 10. [ No ] Are you interested in receiving assistance for a family or relationship concern? 11. [ Yes ] Would you like to schedule a visit with a embroiderer, mental health care provider, or a community support counselor? VII. FAMILY HISTORY AND LIFESTYLE (LIF) 1. [ Fair ] Overall, how would you rate your health during the PAST MONTH? 2. [ None/Don't Know ] Member indicates that family members have the following problems 6. [ No ] I participate in moderate intensity physical activites at least 2.5 hours, or a combination of moderate and vigorous aerobic activites, for at least 75 minutes per week. 7. In a typical week, I do physical activities specifically designed to STRENGTHEN my muscles: [ 0 ] Day(s) per week 8. [ Vitamin D3 25mcg, Albuterol Hfa (Proventil) Inh ] What prescriptions or veng-ubf-fzvlfbn medications are you CURRENTLY taking for health problems on a ROUTINE BASIS? 9. Which of the following products have you taken since your last PHA: Vitamin D: Less than once a month 11. Think about the PAST 30 DAYS. How often did you eat/drink the following foods/beverages? [ 2 servings per day ] Fruits [ 2 servings per day ] Vegetables [ 2 servings per day ] Starchy Vegetables [ 2 servings per day ] Whole Grains [ 2 servings per day ] Dairy and Calcium Containing Foods [ 2 servings per day ] Fish [ 2 servings per day ] Lean Protein [ 1 or 2 servings per week ] Sugar-Sweetened Beverages ] Have you had a cholesterol check by a health urgent care nurse practitioner within the PAST 5 YEARS? 13.a. In the PAST 30 DAYS, which of the following products have you used on at least one day? None 15. Which of the following best describes your past tobacco use? I have never used tobacco products. 16. [ No ] Are you regularly exposed to secondhand smoke? 17. [ 7 to 9 hours ] During the LAST 2 WEEKS, how many hours of sleep did you get on most days? 18. [ Yes ] During the LAST 2 WEEKS, have you felt impaired or unable to adequately perform due to sleepiness or poor quality sleep? 19. [ No ] Have you had any unexplained weight loss or gain since your last PHA? 20. Member is not at risk for sexually transmitted infections. 22. Since your last PHA, what, if anything, have you and your partner used to keep from getting ? [ Sterilization, Abstinence ] I am actively taking steps to prevent , including 23. [ No ] In the last year, have you or your partner had a scare, where you were not trying to get but were worried enough to use a home test? VIII. WOMEN'S HEALTH (WOM) 1. [ No ] Do you wish to receive contraceptive counseling? 2. [ I am not now, and was not or delivered in the past 12 months ] Which of the following best describes you? 3. [ No ] Have you had a total hysterectomy? 4. [ No ] Are you postmenopausal and no longer experiencing menstrual cycles? 5. [ No ] Are you currently taking folic acid or a vitamin containing folic acid 6. [ No ] Do you have heavy and/or irregular menstrual cycles/pain or premenstrual syndrome (PMS)? 7. [ No ] Do you have recurrent urinary tract infections? 8. [ Yes ] Have you had a Pap test within the PAST 3 YEARS? 9. [ No ] Have you ever had an abnormal Pap Test? 13. [ No ] Do you have a history of gestational diabetes? X. OTHER MEDICAL (OTH) 1. [ 2 ] Rate the amount of pain you have had, on average, over the PAST 24 HOURS 2. [ Yes ] Are you receiving treatment for pain? 3. [ No ] Since your last PHA, have you received care or treatment for any medical and/or mental health condition(s) from a civilian or non- facility? 5. Member acknowledged responsibility for reporting health issues. 7. [ No ] Woud you like to schedule an appointment with a health care provider to discuss any health concerns? XI. SEPARATION AND FPC 1. [ No ] Are you planning to separate or retire within the next year from Active Duty or [place] Duty (activated for greater than 30 continuous days) OR do you intend to file a claim for disability compensation with the play140 Benefits Administration? PART B. RECORD REVIEW AND RECOMMENDATIONS I. RECORD REVIEWER INFORMATION 1. Last Name: DARREN 2. First Name: ALEXANDRA 3. Middle Name: Marcelina 4. Service Branch: [employer] 5. 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 EMAIL: [email or web address] 8. Facility: [facility] 9. Unit: [facility] 10. Address: [address] [place] [address] 11. State: [place] 12. Zip Code: [address] 13. 14. Date Record Review: II. MEDICAL SCREENING 1. [ ] Date of seafood team member's most recent PHA 2. [ 5 feet 5 inches Date: ] seafood team member's most recently documented height 3. [ 182 pounds Date: ] seafood team member's most recently documented weight 4. [ 109/68 Date: ] seafood team member's most recently documented blood pressure reading 5. [ No ] Does the seafood team member have a history of abnormal blood pressure since their last PHA? 6. [ Yes ] Does the seafood team member have a laboratory test of sickle cell trait documented in their permanent medical record? 7. [ ] What is the date of the seafood team member's most recently documented cholesterol test? 9. [ Escitalopram Vit D3 Albuterol ] List of seafood team member's active medications listed in their permanent medical record 10. [ No ] Is there a discrepancy between the active medication record review and the seafood team member's self-reported list of medications? 11. [ Seen for eye care, R Shoulder pain, gout ] List documented significant care the seafood team member has received since their last PHA from a provider OUTSIDE the Health System 12. [ Yes: Seen for eye care, R Shoulder pain, gout ] Is there a discrepancy between the seafood team member's list of OUTSIDE care (from OT5), and the OUTSIDE care found in the record? 13. [ No Inside Care Documented ] List documented significant care the seafood team member has received since their last PHA from a provider INSIDE the Health System 15. [ Not Answered ] Confirm that vaccine exemptions are listed in the medical record for each vaccine listed 16. [ No Discrepancies Noted ] Review available medical documentation of allergies and compare with seafood team member responses. Document any discrepancies IV. FAMILY HISTORY AND LIFESTYLE 1. [ Yes ] Does the [id number] reflect the seafood team member's reported family history? V. WOMEN'S HEALTH 3. [ Normal ] Date and result of the most recent Pap test 4. [ ] Notes from review of health records associated with history of abnormal Pap, colposcopy, excisional procedure, or cryotherapy VII. INDIVIDUAL MEDICAL READINESS 1. [ No ] Does the seafood team member have an Assignment Limitation Code C? 3. [ Classification: 1 ] Most recently documented dental exam 4. [ Yes ] Is the seafood team member current on all required immunizations in the immunization tracking system? 5. [ No, seafood team member needs: Optometry ] Is the seafood team member current with Service-specific requirements for glasses and gas mask inserts? 6. Does the seafood team member have the following laboratory tests documented in their permanent medical record? [ Yes ] HIV test within the PAST 24 months [ Yes ] G6PD results on file [ No ] Blood type and Rh on file [ Yes ] DNA test on file IX. ADDITIONAL RECORD REVIEWER COMMENTS 1. This record review indicates the potential need for provider notification or referral: Provider Notified 2. Additional comments about this record review that need to be forwarded to the Health Environment Friendly Landscape Designer completing PART C: On profile for dyspnea Received care for PTSD, anxiety disorder, depression Supplements: Vit D Medication: Escitalopram (Lexapro) 10mg, Albuterol Reported multiple health conditions Positive MH responses Reported no exercise activity felt impaired due to sleepiness Pain scale 09/06 Date Record Review Completed: PART C. HEALTH CARE PROVIDER I. MENTAL HEALTH ASSESSMENT (MHA) PROVIDER INFORMATION 1. Last Name: MILLY 2. First Name: CHARITY 3. Middle Name: 4. Service Branch: [place] 5. Status: Reservist 6. 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 EMAIL: [email or web address] 8. Facility: [address] [place], [place] [address]CE [facility] 9. Unit: [address] [place], [place] [address]CE [facility] 10. Address: [address] [place] [address] 11. State: [place] 12. Zip Code: [address] 13. Phone: [phone] 14. Date HCP Review initiated: 1. Member marked that they did not have a concern or a difficulty with a major life stressor. 2. Address concerns identified on member questions 2 and 3. History of mental health care: Member indicated concern or yes Member's response: PTSD, anxiety disorder, depression PTSD, anxiety disorder, depression Provider's comments: . Medications: Member indicated concern or yes Member's response: Escitalopram (Lexapro) 10mg Escitalopram (Lexapro) 10mg Provider's comments: . 3. Member's AUDIT-C screening score was 1. (nothing required) 4. Member did not kaitlyn yes on two or more of questions 6a through 6e. 5. Member did not kaitlyn More than half the days or nearly every day on question 7a or 7b. 6. Suicide risk evaluation. 6. a. Ask: Over the past month, have you wished you were or wished you could go to sleep and not wake up?: No 6. b. Ask: Have you actually had any thoughts of killing yourself?: No 6. f. 1. Ask: In you lifetime, have you done anything, started to do anything, or prepared to do anything to end your life?: No 6. g. Further risk assessment comments: 7. Member states that they have not had thoughts or concerns over the past month that they might hurt or lose control with someone. 9. Summary of Provider's identified concerns needing referrals: None 11. Comments: 12. Address requests as reported on seafood team member questions 7 through 10 (in Public Health Advisor Section . Behavioral Health): Request information on stress/emotional/alcohol: . Fur Finisher/mental health care provider/Counselor visit request: . 13. Supplemental services recommended/information provided: No supplemental services required Date MHA Certified: III. PERIODIC HEALTH ASSESSMENT (PHA) PROVIDER INFORMATION 1. Last Name: MILLY 2. First Name: CHARITY 3. Middle Name: 4. 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 EMAIL: [email or web address] 8. Facility: [address] [facility] 9. Unit: [address] [facility] 10. Address: [address] [place] 11. State: [place] 12. Zip Code: [address] 13. Phone: [phone] 14. Date HCP Review initiated: IV. PERIODIC HEALTH ASSESSMENT PROVIDER RECOMMENDATIONS and REFERRALS 1. Provider concerns with this assessment: No issues or concerns identified V. SUMMARY AND COMMENTS 1. Additional information summarizing findings during the seafood team member assessment: 2. Provider Comments: Stable No new medical concern. . INDIVIDUAL MEDICAL READINESS DISPOSITION DETERMINATION THAD: Ready DEN: Ready IMM: Ready LAB: Ready ME: Ready IMR Status: Fully Medically Ready VII. SERVICE MEDICAL DEPLOYABILITY EVALUATION INDICATED Based on your review of all documentation, is the seafood team member medically deployable without limitations? 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 2.?Myopia, bilateral Low Rx for night driving. Order Thunder frame [id number]. No path with DFE. No Tx. Do [...] numbers. This can be done either in [place] ([place] or metric measurements. Note that charts and online BMI calculators are available to help you find your BMI quickly and easily without having to do these calculations yourself. To calculate your BMI in [place] ([place] measurements: 1. Measure your weight in [...] Centers for Disease Control and Prevention: www.cdc.gov [place] Heart Association: www.heart.org National Heart, Lung, and Blood [place]: www.nhlbi.nih.gov Summary Body mass index (BMI) is a number that is calculated from a person's weight and height. BMI may help estimate how much of a person's weight is composed of fat. BMI can help identify those who may be at higher risk for certain medical problems. BMI can be measured using [place]ian measurements or metric measurements. BMI charts are used to identify whether you are underweight, normal weight, overweight, or obese. This information is not intended to replace advice given to you by your health care provider. Make sure you discuss any questions you have with your health care provider. Document Revised: 04/05/2020 Document Reviewed: 02/11/2020 [employer] Patient Education ? 2021 [facility]. Extracted from:Title: lip rash, hip pain Author: [...] 09 Extracted from:Title: Ambulatory Patient Education Author: ASHLEY BONDS Date: 09/11/22 How to Use Cold [...] provider. Document Revised: 05/30/2021 Document Reviewed: 05/30/2021 [employer] Patient Education ? 2021 [employer] Exercising to Lose Weight Getting regular [...] your health care provider or diet and animal nutritionist (dietitian). This may include: ? Eating fewer [...] provider. Document Revised: 09/09/2021 Document Reviewed: 09/09/2021 [employer] Patient Education ? 2021 [facility]. Orthopedics How to Use Cold Therapy Cold [...] provider. Document Revised: 05/30/2021 Document Reviewed: 05/30/2021 [employer] Patient Education ? 2021 [employer] Physical Medicine and Rehabilitation Exercising to [...] your health care provider or diet and animal nutritionist (dietitian). This may include: ? Eating fewer [...] provider. Document Revised: 09/09/2021 Document Reviewed: 09/09/2021 Elsevier Patient Education ? 2021 [employer] Inc. Extracted from:Title: sciatica Author: ASHLEY BONDS [...] Author: ASHLEY BONDS Date: 06/07/22 1.?EXAM, OCCUPATIONAL, FPC OR SEPARATION FROM [employer] SERVICE, SHORT Part 1 of half-way completed please see form, pt to scheduled [...] mobility. ?Patient instructed to follow-up with primary lead care manager in one month for further evaluation or sooner as needed.? Ordered: naproxen(naproxen 500 mg oral delayed release tablet), 1 tab(s), Oral, BID, # 60 tab(s), 0 total refill(s), Acute, 09/20/2022, 1 tab(s) Oral BID, Pharmacy: [facility] [Not filled] ketorolac(Toradol), 30 mg, IntraMuscular, Injection, Once, First Dose: 05/20/2022 15:00:00 EDT, Stop Date: 05/20/2022 15:00:00 EDT, 05/20/2022 14:19:00 EDT Referral Request 2.0 ? 2.?Pain in left foot Pt with acute left foot pain, tender on palpation to lateral aspect of foot, she has a?hxf plantar fasciitis, is under treatment with the solderer dipper who has given-2 sets of custom orthotics, [...] fracture.? Patient has an appointment to see solderer dipper next week. Ordered: naproxen(naproxen 500 mg oral delayed release tablet), 1 tab(s), Oral, BID, # 60 tab(s), 0 total refill(s), Acute, 09/20/2022, 1 tab(s) Oral BID, Pharmacy: [facility] [Not filled] Referral Request 2.0 ? Orders: cyclobenzaprine(Flexeril 10 mg oral tablet), 1 tab(s), Oral, TID, # 30 tab(s), 0 total refill(s), Acute, 1 tab(s) Oral TID, Pharmacy: [facility] [Not filled] lidocaine topical(Lidoderm 5% topical film), 1 patch(es), Topical, Daily, Leave on for up to 12 hours within a 24 hour period (12 hours on, 12 hours off), # 30 patch(es), 3 total refill(s), Maintenance, 1 patch(es) Topical Daily,Instr:Leave on for up to 12 hours within a 24 hour period (12 hours... Diagnostic Tests PendingP-C+Homo S [id number] 05/29/22 11/03/2024 [id number] [facility] Assessment and Plan Extracted from:Title : PHA 2024 Author: ALEXANDRA BANKS Date: 09/28/24 ANNUAL PERIODIC HEALTH ASSESSMENT I. 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 Last Name: VERONICA 2. First Name: GUILLERMINA 3. Middle Name: Quan 4. Assessment Date: 5. : 6. Age: 39 7. Sex: F 8. DoD ID Number: [id number] 9. Service Branch: [employer] 10. 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 Unit Name: [employer] 14. Duty Station/Location: [place] 15. C: [id number] 16. Is this your first Periodic Health Assessment (PHA)?: N 17. Are you enrolled in a secure messaging system with your health care provider?: Y 18. Current contact information: Preferred Method: Email 1 DSN: [id number] Day Time Phone: [phone] Night Time Phone: [phone] Email 1: [email or web address] Email 2: [email or web address] Address: [address] [place] [address]: [place] State: [place] Zip Code: [address] 19. Point of contact who can always reach you: Name: Truong Healy Phone 1: [phone] Phone 2: EMAIL: [email or web address] Address: [address] [place] [address]: [place] State: [place] Zip Code: [address] II. DEPLOYMENT INFORMATION (DEP) 1. [ 0 ] Total number of deployments in the PAST 5 YEARS 4. [ N ] Are you going to deploy within the NEXT 120 DAYS? III. 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 [ No ] Does your specialty require an operational duty physical exam? 4. [ Don't Know ] Are you currently enrolled in a medical surveillance/occupational health program?: Don't Know IV. MEDICAL CONDITIONS (THAD): 1. Since your last PHA, have you experienced any of the following health conditions, and if so, what is your status? [ ] Conditions with no medical care [ ] Conditions with medical care, but no longer under treatment [ ] Conditions with medical care, and NOW under treatment 2. Since your last PHA, have you experienced any of the following health conditions, and if so, what is your status? [ ] Conditions with no medical care [ ] Conditions with medical care, but no longer under treatment [ Wheezing, shortness of breath, Recurring muscle, joint, or low back pain, Recurring headaches/migraines, Blood problems, Tooth or gum problems/pain ] Conditions with medical care, and NOW under treatment 3. For any condition marked YES in question 1 or 2, are you currently on any profile or limited duty for that condition? [ Wheezing, shortness of breath, Recurring muscle, joint, or low back pain ] Conditions 4. [ No ] Have you been based or stationed at a location where an open burn pit was used? 5. [ Not Sure ] Have you been exposed to toxic airborne chemicals or other airborne contaminants? 6. [ No ] Are you enrolled in the Airborne Hazards and Open Burn Pit Registry? 7. [ No ] Federal law requires eligible members to enroll in the Airborne Hazards and Open Burn Pit Registry or opt-out. If eligble, choose one: 8. Have you had any surgery since your last PHA?: No 10.a. [ No ] Since your last PHA, has a health care provider recommended surgery(s) that you have not had? 11.a. [ No ] Do you currently require hearing aids, special medical supplies, CPAP, adaptive equipment, assistive technology devices, and/or other special accommodations? 12.a. [ Yes ] Do you have a waiver or profile for any part of your Service's physical fitness test? 12.b. [ Body Composition AnalysisCardio Event, Crunches/Sit-Ups, Push-Ups ] Which component(s) of your physical fitness test are waived/profiled? 13.a. [ No ] Do you have any problems wearing a gas mask, ballistic helmet, body armor, and/or chemical/biological protective garments? 14.a. [ No ] Have you ever been told by a health care provider that you SHOULD NOT receive an immunization for medical reasons? 15.a. [ Don't Know ] Do you have a permanent profile or an Assignment Limitation Code C? 16.a. [ No ] Are you on a temporary profile or limited duty? 17. [ 0 ] During the PAST 2 years, how many times have you been placed on a temporary profile or on limited duty? V. INDIVIDUAL MEDICAL READINESS (IMR) 1. [ Yes ] Do you have any allergies? 2. [ PPD Para-phenylenediamine and Fragrance (Parfu ] Allergy List 3. [ Not required ] Do you have red medical warning dog tags? 4. [ Yes ] Do you wear corrective lenses? 5. [ 2 or more ] How many pairs of glasses do you have? 6. [ No ] Do you have gas mask inserts? . BEHAVIORAL HEALTH (MHA) 1. a. [ None ] Over the PAST MONTH, what major life stressors have you experienced that are a cause of significant concern or make it difficult for you to do your work, take care of things at home, or get along with other people (for example, serious conflicts with others, relationship problems, or a legal, disciplinary or financial problem)? 2. a. [ Yes PTSD, anxiety disorder, depression ] In the PAST YEAR did you receive care for any mental health condition or concern such as, but not limited to post traumatic stress disorder (PTSD), depression, anxiety disorder, alcohol abuse or substance abuse? 3. [ Yes Escitalopram (Lexapro) 10mg ] What prescription or over-the counter medications (including herbals/supplements) for sleep, pain, combat stress, or a mental health problem are you CURRENTLY taking? 4. a. [ No ] In the past 12 months, have you gambled? 5. a. [ Monthly or less ] How often do you have a drink containing alcohol? 5. b. [ 1 or 2 ] How many drinks containing alcohol do you have on a typical day when you are drinking? 5. c. [ Never ] How often do you have six or more drinks on one occasion? 6. Have you ever had any experience that was so frightening, horrible, or upsetting that in the PAST MONTH, you: 6. a. [ No ] Have had nightmares about it or thought about it when you did not want to? 6. b. [ No ] Tried hard not to think about it or went out of your way to avoid situations that remind you of it? 6. c. [ No ] Were constantly on guard, watchful or easily startled? 6. d. [ No ] [place] numb or detached from others, activities, or your surroundings? 6. e. [ Not answered ] [place] guilt or unable to stop blaming yourself or others for the event(s) or any problems the event(s) may have caused? 7. Over the LAST 2 WEEKS, how often have you been bothered by the following problems? 7. a. [ Few or several days ] Little interest or pleasure in doing things 7. b. [ Few or several days ] Feeling down, depressed, or hopeless 8. [ No ] Would you like to schedule an appointment with a health care provider to discuss any health concern(s)? 9. [ Yes ] Are you interested in receiving information or assistance for a stress, emotional or alcohol concern? 10. [ No ] Are you interested in receiving assistance for a family or relationship concern? 11. [ Yes ] Would you like to schedule a visit with a embroiderer, mental health care provider, or a community support counselor? VII. FAMILY HISTORY AND LIFESTYLE (LIF) 1. [ Fair ] Overall, how would you rate your health during the PAST MONTH? 2. [ None/Don't Know ] Member indicates that family members have the following problems 6. [ No ] I participate in moderate intensity physical activites at least 2.5 hours, or a combination of moderate and vigorous aerobic activites, for at least 75 minutes per week. 7. In a typical week, I do physical activities specifically designed to STRENGTHEN my muscles: [ 0 ] Day(s) per week 8. [ Vitamin D3 25mcg, Albuterol Hfa (Proventil) Inh ] What prescriptions or jmou-nhs-qgzptly medications are you CURRENTLY taking for health problems on a ROUTINE BASIS? 9. Which of the following products have you taken since your last PHA: Vitamin D: Less than once a month 11. Think about the PAST 30 DAYS. How often did you eat/drink the following foods/beverages? [ 2 servings per day ] Fruits [ 2 servings per day ] Vegetables [ 2 servings per day ] Starchy Vegetables [ 2 servings per day ] Whole Grains [ 2 servings per day ] Dairy and Calcium Containing Foods [ 2 servings per day ] Fish [ 2 servings per day ] Lean Protein [ 1 or 2 servings per week ] Sugar-Sweetened Beverages ] Have you had a cholesterol check by a health urgent care nurse practitioner within the PAST 5 YEARS? 13.a. In the PAST 30 DAYS, which of the following products have you used on at least one day? None 15. Which of the following best describes your past tobacco use? I have never used tobacco products. 16. [ No ] Are you regularly exposed to secondhand smoke? 17. [ 7 to 9 hours ] During the LAST 2 WEEKS, how many hours of sleep did you get on most days? 18. [ Yes ] During the LAST 2 WEEKS, have you felt impaired or unable to adequately perform due to sleepiness or poor quality sleep? 19. [ No ] Have you had any unexplained weight loss or gain since your last PHA? 20. Member is not at risk for sexually transmitted infections. 22. Since your last PHA, what, if anything, have you and your partner used to keep from getting ? [ Sterilization, Abstinence ] I am actively taking steps to prevent , including 23. [ No ] In the last year, have you or your partner had a scare, where you were not trying to get but were worried enough to use a home test? VIII. WOMEN'S HEALTH (WOM) 1. [ No ] Do you wish to receive contraceptive counseling? 2. [ I am not now, and was not or delivered in the past 12 months ] Which of the following best describes you? 3. [ No ] Have you had a total hysterectomy? 4. [ No ] Are you postmenopausal and no longer experiencing menstrual cycles? 5. [ No ] Are you currently taking folic acid or a vitamin containing folic acid 6. [ No ] Do you have heavy and/or irregular menstrual cycles/pain or premenstrual syndrome (PMS)? 7. [ No ] Do you have recurrent urinary tract infections? 8. [ Yes ] Have you had a Pap test within the PAST 3 YEARS? 9. [ No ] Have you ever had an abnormal Pap Test? 13. [ No ] Do you have a history of gestational diabetes? X. OTHER MEDICAL (OTH) 1. [ 2 ] Rate the amount of pain you have had, on average, over the PAST 24 HOURS 2. [ Yes ] Are you receiving treatment for pain? 3. [ No ] Since your last PHA, have you received care or treatment for any medical and/or mental health condition(s) from a civilian or non- facility? 5. Member acknowledged responsibility for reporting health issues. 7. [ No ] Woud you like to schedule an appointment with a health care provider to discuss any health concerns? XI. SEPARATION AND FPC 1. [ No ] Are you planning to separate or retire within the next year from Active Duty or [place] Duty (activated for greater than 30 continuous days) OR do you intend to file a claim for disability compensation with the Veterans Benefits Administration? PART B. RECORD REVIEW AND RECOMMENDATIONS I. RECORD REVIEWER INFORMATION 1. Last Name: DARREN 2. First Name: ALEXANDRA 3. Middle Name: Marcelina 4. Service Branch: [employer] 5. 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 EMAIL: [email or web address] 8. Facility: [facility] 9. Unit: [facility] 10. Address: [address] [place] [address] 11. State: [place] 12. Zip Code: [address] 13. 14. Date Record Review: II. MEDICAL SCREENING 1. [ ] Date of seafood team member's most recent PHA 2. [ 5 feet 5 inches Date: ] seafood team member's most recently documented height 3. [ 182 pounds Date: ] seafood team member's most recently documented weight 4. [ 109/68 Date: ] seafood team member's most recently documented blood pressure reading 5. [ No ] Does the seafood team member have a history of abnormal blood pressure since their last PHA? 6. [ Yes ] Does the seafood team member have a laboratory test of sickle cell trait documented in their permanent medical record? 7. [ ] What is the date of the seafood team member's most recently documented cholesterol test? 9. [ Escitalopram Vit D3 Albuterol ] List of seafood team member's active medications listed in their permanent medical record 10. [ No ] Is there a discrepancy between the active medication record review and the seafood team member's self-reported list of medications? 11. [ Seen for eye care, R Shoulder pain, gout ] List documented significant care the seafood team member has received since their last PHA from a provider OUTSIDE the Health System 12. [ Yes: Seen for eye care, R Shoulder pain, gout ] Is there a discrepancy between the seafood team member's list of OUTSIDE care (from OTH5), and the OUTSIDE care found in the record? 13. [ No Inside Care Documented ] List documented significant care the seafood team member has received since their last PHA from a provider INSIDE the Health System 15. [ Not Answered ] Confirm that vaccine exemptions are listed in the medical record for each vaccine listed 16. [ No Discrepancies Noted ] Review available medical documentation of allergies and compare with seafood team member responses. Document any discrepancies IV. FAMILY HISTORY AND LIFESTYLE 1. [ Yes ] Does the [id number] reflect the seafood team member's reported family history? V. WOMEN'S HEALTH 3. [ Normal ] Date and result of the most recent Pap test 4. [ ] Notes from review of health records associated with history of abnormal Pap, colposcopy, excisional procedure, or cryotherapy VII. INDIVIDUAL MEDICAL READINESS 1. [ No ] Does the seafood team member have an Assignment Limitation Code C? 3. [ Classification: 1 ] Most recently documented dental exam 4. [ Yes ] Is the seafood team member current on all required immunizations in the immunization tracking system? 5. [ No, seafood team member needs: Optometry ] Is the seafood team member current with Service-specific requirements for glasses and gas mask inserts? 6. Does the seafood team member have the following laboratory tests documented in their permanent medical record? [ Yes ] HIV test within the PAST 24 months [ Yes ] G6PD results on file [ No ] Blood type and Rh on file [ Yes ] DNA test on file IX. ADDITIONAL RECORD REVIEWER COMMENTS 1. This record review indicates the potential need for provider notification or referral: Provider Notified 2. Additional comments about this record review that need to be forwarded to the Health Environment Friendly Landscape Designer completing PART C: On profile for dyspnea Received care for PTSD, anxiety disorder, depression Supplements: Vit D Medication: Escitalopram (Lexapro) 10mg, Albuterol Reported multiple health conditions Positive MH responses Reported no exercise activity felt impaired due to sleepiness Pain scale 09/06 Date Record Review Completed: PART C. HEALTH CARE PROVIDER I. MENTAL HEALTH ASSESSMENT (MHA) PROVIDER INFORMATION 1. Last Name: MILLY 2. First Name: CHARITY 3. Middle Name: 4. 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 EMAIL: [email or web address] 8. Facility: [facility] 9. Unit: [facility] 10. Address: [address] [place] [address] 11. State: [place] 12. Zip Code: [address] . Phone: [phone] 14. Date HCP Review initiated: 1. Member marked that they did not have a concern or a difficulty with a major life stressor. 2. Address concerns identified on member questions 2 and 3. History of mental health care: Member indicated concern or yes Member's response: PTSD, anxiety disorder, depression PTSD, anxiety disorder, depression Provider's comments: . Medications: Member indicated concern or yes Member's response: Escitalopram (Lexapro) 10mg Escitalopram (Lexapro) 10mg Provider's comments: . 3. Member's AUDIT-C screening score was 1. (nothing required) 4. Member did not kaitlyn yes on two or more of questions 6a through 6e. 5. Member did not kaitlyn More than half the days or nearly every day on question 7a or 7b. 6. Suicide risk evaluation. 6. a. Ask: Over the past month, have you wished you were or wished you could go to sleep and not wake up?: No 6. b. Ask: Have you actually had any thoughts of killing yourself?: No 6. f. 1. Ask: In you lifetime, have you done anything, started to do anything, or prepared to do anything to end your life?: No 6. g. Further risk assessment comments: 7. Member states that they have not had thoughts or concerns over the past month that they might hurt or lose control with someone. 9. Summary of Provider's identified concerns needing referrals: None 11. Comments: 12. Address requests as reported on seafood team member questions 7 through 10 (in Public Health Advisor Section . Behavioral Health): Request information on stress/emotional/alcohol: . Fur Finisher/mental health care provider/Counselor visit request: . 13. Supplemental services recommended/information provided: No supplemental services required Date MHA Certified: III. PERIODIC HEALTH ASSESSMENT (PHA) PROVIDER INFORMATION 1. Last Name: MILLY 2. First Name: CHARITY 3. Middle Name: 4. Service Branch: [place] 5. Status: Reservist 6. 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 EMAIL: [email or web address] 8. Facility: [facility] 9. Unit: [facility] 10. Address: [address] [place] [address] 11. State: [place] 12. Zip Code: [address] 13. Phone: [phone] 14. Date HCP Review initiated: IV. PERIODIC HEALTH ASSESSMENT PROVIDER RECOMMENDATIONS and REFERRALS 1. Provider concerns with this assessment: No issues or concerns identified V. SUMMARY AND COMMENTS 1. Additional information summarizing findings during the seafood team member assessment: 2. Provider Comments: Stable No new medical concern. . INDIVIDUAL MEDICAL READINESS DISPOSITION DETERMINATION THAD: Ready DEN: Ready IMM: Ready LAB: Ready ME: Ready IMR Status: Fully Medically Ready VII. SERVICE MEDICAL DEPLOYABILITY EVALUATION INDICATED Based on your review of all documentation, is the seafood team member medically deployable without limitations? 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 2.?Myopia, bilateral Low Rx for night driving. Order [facility] frame [id number]. No path with DFE. No Tx. Do [...] numbers. This can be done either in [place] ([place] or metric measurements. Note that charts and online BMI calculators are available to help you find your BMI quickly and easily without having to do these calculations yourself. To calculate your BMI in [place] ([place] measurements: 1. Measure your weight in [...] Centers for Disease Control and Prevention: www.cdc.gov [place] Heart Association: www.heart.org National Heart, Lung, and Blood [place]: www.nhlbi.nih.gov Summary Body mass index (BMI) is a number that is calculated from a person's weight and height. BMI may help estimate how much of a person's weight is composed of fat. BMI can help identify those who may be at higher risk for certain medical problems. BMI can be measured using [place]ian measurements or metric measurements. BMI charts are used to identify whether you are underweight, normal weight, overweight, or obese. This information is not intended to replace advice given to you by your health care provider. Make sure you discuss any questions you have with your health care provider. Document Revised: 04/05/2020 Document Reviewed: 02/11/2020 [employer] Patient Education ? 2021 [facility]. Extracted from:Title: lip rash, hip pain Author: [...] 09 Extracted from:Title: Ambulatory Patient Education Author: ASHLEY BONDS Date: 09/11/22 How to Use Cold [...] provider. Document Revised: 05/30/2021 Document Reviewed: 05/30/2021 [employer] Patient Education ? 2021 [facility]. Exercising to Lose Weight Getting regular exercise [...] your health care provider or diet and animal nutritionist (dietitian). This may include: ? Eating fewer [...] provider. Document Revised: 09/09/2021 Document Reviewed: 09/09/2021 [employer] Patient Education ? 2021 [employer] Orthopedics How to Use Cold Therapy Cold [...] provider. Document Revised: 05/30/2021 Document Reviewed: 05/30/2021 [employer] Patient Education ? 2021 [employer] Physical Medicine and Rehabilitation Exercising to [...] your health care provider or diet and animal nutritionist (dietitian). This may include: ? Eating fewer [...] provider. Document Revised: 09/09/2021 Document Reviewed: 09/09/2021 [employer] Patient Education ? 2021 [facility]. Extracted from:Title: sciatica Author: ASHLEY BONDS Date: [...] Author: ASHLEY BONDS Date: 06/07/22 1.?EXAM, OCCUPATIONAL, FPC OR SEPARATION FROM UNIFORMED SERVICE, SHORT Part 1 of half-way completed please see form, pt to scheduled [...] mobility. ?Patient instructed to follow-up with primary lead care manager in one month for further evaluation or sooner as needed.? Ordered: naproxen(naproxen 500 mg oral delayed release tablet), 1 tab(s), Oral, BID, # 60 tab(s), 0 total refill(s), Acute, 09/20/2022, 1 tab(s) Oral BID, Pharmacy: [facility] [Not filled] ketorolac(Toradol), 30 mg, IntraMuscular, Injection, Once, First Dose: 05/20/2022 15:00:00 EDT, Stop Date: 05/20/2022 15:00:00 EDT, 05/20/2022 14:19:00 EDT Referral Request 2.0 ? 2.?Pain in left foot Pt with acute left foot pain, tender on palpation to lateral aspect of foot, she has a?hxf plantar fasciitis, is under treatment with the solderer dipper who has given-2 sets of custom orthotics, [...] fracture.? Patient has an appointment to see solderer dipper next week. Ordered: naproxen(naproxen 500 mg oral delayed release tablet), 1 tab(s), Oral, BID, # 60 tab(s), 0 total refill(s), Acute, 09/20/2022, 1 tab(s) Oral BID, Pharmacy: [facility] [Not filled] Referral Request 2.0 ? Orders: cyclobenzaprine(Flexeril 10 mg oral tablet), 1 tab(s), Oral, TID, # 30 tab(s), 0 total refill(s), Acute, 1 tab(s) Oral TID, Pharmacy: [facility] [Not filled] lidocaine topical(Lidoderm 5% topical film), 1 patch(es), Topical, Daily, Leave on for up to 12 hours within a 24 hour period (12 hours on, 12 hours off), # 30 patch(es), 3 total refill(s), Maintenance, 1 patch(es) Topical Daily,Instr:Leave on for up to 12 hours within a 24 hour period (12 hours... Diagnostic Tests PendingCRP-C+Homo S [id number] 05/29/22 11/03/2024 [id number] Assessment and Plan Extracted from:Title : [facility] 2024 Author: ALEXANDRA BANKS Date: 09/28/24 ANNUAL PERIODIC HEALTH ASSESSMENT I. 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 Last Name: VERONICA 2. First Name: GUILLERMINA 3. Middle Name: Quan 4. Assessment Date: 5. : 6. Age: 39 7. Sex: F 8. DoD ID Number: [id number] 9. Service Branch: [employer] 10. 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 Unit Name: [address] [facility] [facility] 14. Duty Station/Location: [place] 15. UIC: [id number] 16. Is this your first Periodic Health Assessment (PHA)?: N 17. Are you enrolled in a secure messaging system with your health care provider?: Y 18. Current contact information: Preferred Method: Email 1 DSN: [id number] Day Time Phone: [phone] Night Time Phone: [phone] Email 1: [email or web address] Email 2: [email or web address] Address: [address] [place] [address]: [facility]: [place] Zip Code: [address] 19. Point of contact who can always reach you: Name: Truong Healy Phone 1: [phone] Phone 2: EMAIL: [email or web address] Address: [address] [place] [address]: [facility]: [place] Zip Code: [address] II. DEPLOYMENT INFORMATION (DEP) 1. [ 0 ] Total number of deployments in the PAST 5 YEARS 4. [ N ] Are you going to deploy within the NEXT 120 DAYS? III. 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 [ No ] Does your specialty require an operational duty physical exam? 4. [ Don't Know ] Are you currently enrolled in a medical surveillance/occupational health program?: Don't Know IV. MEDICAL CONDITIONS (THAD): 1. Since your last PHA, have you experienced any of the following health conditions, and if so, what is your status? [ ] Conditions with no medical care [ ] Conditions with medical care, but no longer under treatment [ ] Conditions with medical care, and NOW under treatment 2. Since your last PHA, have you experienced any of the following health conditions, and if so, what is your status? [ ] Conditions with no medical care [ ] Conditions with medical care, but no longer under treatment [ Wheezing, shortness of breath, Recurring muscle, joint, or low back pain, Recurring headaches/migraines, Blood problems, Tooth or gum problems/pain ] Conditions with medical care, and NOW under treatment 3. For any condition marked YES in question 1 or 2, are you currently on any profile or limited duty for that condition? [ Wheezing, shortness of breath, Recurring muscle, joint, or low back pain ] Conditions 4. [ No ] Have you been based or stationed at a location where an open burn pit was used? 5. [ Not Sure ] Have you been exposed to toxic airborne chemicals or other airborne contaminants? 6. [ No ] Are you enrolled in the Airborne Hazards and Open Burn Pit Registry? 7. [ No ] Federal law requires eligible members to enroll in the Airborne Hazards and Open Burn Pit Registry or opt-out. If eligble, choose one: 8. Have you had any surgery since your last PHA?: No 10.a. [ No ] Since your last PHA, has a health care provider recommended surgery(s) that you have not had? 11.a. [ No ] Do you currently require hearing aids, special medical supplies, CPAP, adaptive equipment, assistive technology devices, and/or other special accommodations? 12.a. [ Yes ] Do you have a waiver or profile for any part of your Service's physical fitness test? 12.b. [ Body Composition AnalysisCardio Event, Crunches/Sit-Ups, Push-Ups ] Which component(s) of your physical fitness test are waived/profiled? 13.a. [ No ] Do you have any problems wearing a gas mask, ballistic helmet, body armor, and/or chemical/biological protective garments? 14.a. [ No ] Have you ever been told by a health care provider that you SHOULD NOT receive an immunization for medical reasons? 15.a. [ Don't Know ] Do you have a permanent profile or an Assignment Limitation Code C? 16.a. [ No ] Are you on a temporary profile or limited duty? 17. [ 0 ] During the PAST 2 years, how many times have you been placed on a temporary profile or on limited duty? V. INDIVIDUAL MEDICAL READINESS (IMR) 1. [ Yes ] Do you have any allergies? 2. [ PPD Para-phenylenediamine and Fragrance (Parfu ] Allergy List 3. [ Not required ] Do you have red medical warning dog tags? 4. [ Yes ] Do you wear corrective lenses? 5. [ 2 or more ] How many pairs of glasses do you have? 6. [ No ] Do you have gas mask inserts? . BEHAVIORAL HEALTH (MHA) 1. a. [ None ] Over the PAST MONTH, what major life stressors have you experienced that are a cause of significant concern or make it difficult for you to do your work, take care of things at home, or get along with other people (for example, serious conflicts with others, relationship problems, or a legal, disciplinary or financial problem)? 2. a. [ Yes PTSD, anxiety disorder, depression ] In the PAST YEAR did you receive care for any mental health condition or concern such as, but not limited to post traumatic stress disorder (PTSD), depression, anxiety disorder, alcohol abuse or substance abuse? 3. [ Yes Escitalopram (Lexapro) 10mg ] What prescription or over-the counter medications (including herbals/supplements) for sleep, pain, combat stress, or a mental health problem are you CURRENTLY taking? 4. a. [ No ] In the past 12 months, have you gambled? 5. a. [ Monthly or less ] How often do you have a drink containing alcohol? 5. b. [ 1 or 2 ] How many drinks containing alcohol do you have on a typical day when you are drinking? 5. c. [ Never ] How often do you have six or more drinks on one occasion? 6. Have you ever had any experience that was so frightening, horrible, or upsetting that in the PAST MONTH, you: 6. a. [ No ] Have had nightmares about it or thought about it when you did not want to? 6. b. [ No ] Tried hard not to think about it or went out of your way to avoid situations that remind you of it? 6. c. [ No ] Were constantly on guard, watchful or easily startled? 6. d. [ No ] [place] numb or detached from others, activities, or your surroundings? 6. e. [ Not answered ] [place] guilt or unable to stop blaming yourself or others for the event(s) or any problems the event(s) may have caused? 7. Over the LAST 2 WEEKS, how often have you been bothered by the following problems? 7. a. [ Few or several days ] Little interest or pleasure in doing things 7. b. [ Few or several days ] Feeling down, depressed, or hopeless 8. [ No ] Would you like to schedule an appointment with a health care provider to discuss any health concern(s)? 9. [ Yes ] Are you interested in receiving information or assistance for a stress, emotional or alcohol concern? 10. [ No ] Are you interested in receiving assistance for a family or relationship concern? 11. [ Yes ] Would you like to schedule a visit with a embroiderer, mental health care provider, or a community support counselor? VII. FAMILY HISTORY AND LIFESTYLE (LIF) 1. [ Fair ] Overall, how would you rate your health during the PAST MONTH? 2. [ None/Don't Know ] Member indicates that family members have the following problems 6. [ No ] I participate in moderate intensity physical activites at least 2.5 hours, or a combination of moderate and vigorous aerobic activites, for at least 75 minutes per week. 7. In a typical week, I do physical activities specifically designed to STRENGTHEN my muscles: [ 0 ] Day(s) per week 8. [ Vitamin D3 25mcg, Albuterol Hfa (Proventil) Inh ] What prescriptions or ohle-hkv-nlsjglk medications are you CURRENTLY taking for health problems on a ROUTINE BASIS? 9. Which of the following products have you taken since your last PHA: Vitamin D: Less than once a month 11. Think about the PAST 30 DAYS. How often did you eat/drink the following foods/beverages? [ 2 servings per day ] Fruits [ 2 servings per day ] Vegetables [ 2 servings per day ] Starchy Vegetables [ 2 servings per day ] Whole Grains [ 2 servings per day ] Dairy and Calcium Containing Foods [ 2 servings per day ] Fish [ 2 servings per day ] Lean Protein [ 1 or 2 servings per week ] Sugar-Sweetened Beverages ] Have you had a cholesterol check by a health urgent care nurse practitioner within the PAST 5 YEARS? 13.a. In the PAST 30 DAYS, which of the following products have you used on at least one day? None 15. Which of the following best describes your past tobacco use? I have never used tobacco products. 16. [ No ] Are you regularly exposed to secondhand smoke? 17. [ 7 to 9 hours ] During the LAST 2 WEEKS, how many hours of sleep did you get on most days? 18. [ Yes ] During the LAST 2 WEEKS, have you felt impaired or unable to adequately perform due to sleepiness or poor quality sleep? 19. [ No ] Have you had any unexplained weight loss or gain since your last PHA? 20. Member is not at risk for sexually transmitted infections. 22. Since your last PHA, what, if anything, have you and your partner used to keep from getting ? [ Sterilization, Abstinence ] I am actively taking steps to prevent , including 23. [ No ] In the last year, have you or your partner had a scare, where you were not trying to get but were worried enough to use a home test? VIII. WOMEN'S HEALTH (WOM) 1. [ No ] Do you wish to receive contraceptive counseling? 2. [ I am not now, and was not or delivered in the past 12 months ] Which of the following best describes you? 3. [ No ] Have you had a total hysterectomy? 4. [ No ] Are you postmenopausal and no longer experiencing menstrual cycles? 5. [ No ] Are you currently taking folic acid or a vitamin containing folic acid 6. [ No ] Do you have heavy and/or irregular menstrual cycles/pain or premenstrual syndrome (PMS)? 7. [ No ] Do you have recurrent urinary tract infections? 8. [ Yes ] Have you had a Pap test within the PAST 3 YEARS? 9. [ No ] Have you ever had an abnormal Pap Test? 13. [ No ] Do you have a history of gestational diabetes? X. OTHER MEDICAL (OTH) 1. [ 2 ] Rate the amount of pain you have had, on average, over the PAST 24 HOURS 2. [ Yes ] Are you receiving treatment for pain? 3. [ No ] Since your last PHA, have you received care or treatment for any medical and/or mental health condition(s) from a civilian or non- facility? 5. Member acknowledged responsibility for reporting health issues. 7. [ No ] Woud you like to schedule an appointment with a health care provider to discuss any health concerns? XI. SEPARATION AND FPC 1. [ No ] Are you planning to separate or retire within the next year from Active Duty or [place] Duty (activated for greater than 30 continuous days) OR do you intend to file a claim for disability compensation with the Veterans Benefits Administration? PART B. RECORD REVIEW AND RECOMMENDATIONS I. RECORD REVIEWER INFORMATION 1. Last Name: DARREN 2. First Name: ALEXANDRA 3. Middle Name: Marcelina 4. Service Branch: [employer] 5. 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 EMAIL: [email or web address] 8. Facility: [facility] 9. Unit: [facility] 10. Address: [address] [place] [address] 11. State: [facility]. Zip Code: [address] 13. 14. Date Record Review: II. MEDICAL SCREENING 1. [ ] Date of seafood team member's most recent PHA 2. [ 5 feet 5 inches Date: ] seafood team member's most recently documented height 3. [ 182 pounds Date: ] seafood team member's most recently documented weight 4. [ 109/68 Date: ] seafood team member's most recently documented blood pressure reading 5. [ No ] Does the seafood team member have a history of abnormal blood pressure since their last PHA? 6. [ Yes ] Does the seafood team member have a laboratory test of sickle cell trait documented in their permanent medical record? 7. [ 17/Mar/2022 ] What is the date of the seafood team member's most recently documented cholesterol test? 9. [ Escitalopram Vit D3 Albuterol ] List of seafood team member's active medications listed in their permanent medical record 10. [ No ] Is there a discrepancy between the active medication record review and the seafood team member's self-reported list of medications? 11. [ Seen for eye care, R Shoulder pain, gout ] List documented significant care the seafood team member has received since their last PHA from a provider OUTSIDE the Health System 12. [ Yes: Seen for eye care, R Shoulder pain, gout ] Is there a discrepancy between the seafood team member's list of OUTSIDE care (from OTH5), and the OUTSIDE care found in the record? 13. [ No Inside Care Documented ] List documented significant care the seafood team member has received since their last PHA from a provider INSIDE the Health System 15. [ Not Answered ] Confirm that vaccine exemptions are listed in the medical record for each vaccine listed 16. [ No Discrepancies Noted ] Review available medical documentation of allergies and compare with seafood team member responses. Document any discrepancies IV. FAMILY HISTORY AND LIFESTYLE 1. [ Yes ] Does the [id number] reflect the seafood team member's reported family history? V. WOMEN'S HEALTH 3. [ Normal ] Date and result of the most recent Pap test 4. [ ] Notes from review of health records associated with history of abnormal Pap, colposcopy, excisional procedure, or cryotherapy VII. INDIVIDUAL MEDICAL READINESS 1. [ No ] Does the seafood team member have an Assignment Limitation Code C? 3. [ Classification: 1 ] Most recently documented dental exam 4. [ Yes ] Is the seafood team member current on all required immunizations in the immunization tracking system? 5. [ No, seafood team member needs: Optometry ] Is the seafood team member current with Service-specific requirements for glasses and gas mask inserts? 6. Does the seafood team member have the following laboratory tests documented in their permanent medical record? [ Yes ] HIV test within the PAST 24 months [ Yes ] G6PD results on file [ No ] Blood type and Rh on file [ Yes ] DNA test on file IX. ADDITIONAL RECORD REVIEWER COMMENTS 1. This record review indicates the potential need for provider notification or referral: Provider Notified 2. Additional comments about this record review that need to be forwarded to the Health Environment Friendly Landscape Designer completing PART C: On profile for dyspnea Received MH care for PTSD, anxiety disorder, depression Supplements: Vit D Medication: Escitalopram (Lexapro) 10mg, Albuterol Reported multiple health conditions Positive MH responses Reported no exercise activity felt impaired due to sleepiness Pain scale 09/06 Date Record Review Completed: PART C. HEALTH CARE PROVIDER I. MENTAL HEALTH ASSESSMENT (MHA) PROVIDER INFORMATION 1. Last Name: MILLY 2. First Name: CHARITY 3. Middle Name: 4. Service Branch: [place] 5. Status: Reservist 6. 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 EMAIL: [email or web address] 8. Facility: [facility] 9. Unit: [address] [place], [place] [address] 10. Address: [address] [place] [address] 11. State: [place] 12. Zip Code: [address] 13. Phone: [phone] 14. Date HCP Review initiated: 1. Member marked that they did not have a concern or a difficulty with a major life stressor. 2. Address concerns identified on member questions 2 and 3. History of mental health care: Member indicated concern or yes Member's response: PTSD, anxiety disorder, depression PTSD, anxiety disorder, depression Provider's comments: . Medications: Member indicated concern or yes Member's response: Escitalopram (Lexapro) 10mg Escitalopram (Lexapro) 10mg Provider's comments: . 3. Member's AUDIT-C screening score was 1. (nothing required) 4. Member did not kaitlyn yes on two or more of questions 6a through 6e. 5. Member did not kaitlyn More than half the days or nearly every day on question 7a or 7b. 6. Suicide risk evaluation. 6. a. Ask: Over the past month, have you wished you were or wished you could go to sleep and not wake up?: No 6. b. Ask: Have you actually had any thoughts of killing yourself?: No 6. f. 1. Ask: In you lifetime, have you done anything, started to do anything, or prepared to do anything to end your life?: No 6. g. Further risk assessment comments: 7. Member states that they have not had thoughts or concerns over the past month that they might hurt or lose control with someone. 9. Summary of Provider's identified concerns needing referrals: None 11. Comments: 12. Address requests as reported on seafood team member questions 7 through 10 (in Public Health Advisor Section . Behavioral Health): Request information on stress/emotional/alcohol: . Fur Finisher/mental health care provider/Counselor visit request: . 13. Supplemental services recommended/information provided: No supplemental services required Date MHA Certified: III. PERIODIC HEALTH ASSESSMENT (PHA) PROVIDER INFORMATION 1. Last Name: MILLY 2. First Name: CHARITY 3. Middle Name: 4. Service Branch: [place] 5. Status: Reservist 6. 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 EMAIL: [email or web address] 8. Facility: [address] [place], [place] [address] 9. Unit: [address] [place], [place] [address] 10. Address: [address] [place] [address] 11. State: [place] 12. Zip Code: [address] 13. Phone: [phone] 14. Date HCP Review initiated: IV. PERIODIC HEALTH ASSESSMENT PROVIDER RECOMMENDATIONS and REFERRALS 1. Provider concerns with this assessment: No issues or concerns identified V. SUMMARY AND COMMENTS 1. Additional information summarizing findings during the seafood team member assessment: 2. Provider Comments: Stable No new medical concern. . INDIVIDUAL MEDICAL READINESS DISPOSITION DETERMINATION THAD: Ready DEN: Ready IMM: Ready LAB: Ready ME: Ready IMR Status: Fully Medically Ready VII. SERVICE MEDICAL DEPLOYABILITY EVALUATION INDICATED Based on your review of all documentation, is the seafood team member medically deployable without limitations? 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 2.?Myopia, bilateral Low Rx for night driving. Order [facility] frame [id number]. No path with DFE. No Tx. Do [...] numbers. This can be done either in [place] ([place] or metric measurements. Note that charts and online BMI calculators are available to help you find your BMI quickly and easily without having to do these calculations yourself. To calculate your BMI in [place] ([place] measurements: 1. Measure your weight in [...] Centers for Disease Control and Prevention: www.cdc.gov [place] Heart Association: www.heart.org National Heart, Lung, and Blood [place]: www.nhlbi.nih.gov Summary Body mass index (BMI) is a number that is calculated from a person's weight and height. BMI may help estimate how much of a person's weight is composed of fat. BMI can help identify those who may be at higher risk for certain medical problems. BMI can be measured using [place]ian measurements or metric measurements. BMI charts are used to identify whether you are underweight, normal weight, overweight, or obese. This information is not intended to replace advice given to you by your health care provider. Make sure you discuss any questions you have with your health care provider. Document Revised: 04/05/2020 Document Reviewed: 02/11/2020 [employer] Patient Education ? 2021 [employer] Extracted from:Title: lip rash, hip pain Author: [...] 09 Extracted from:Title: Ambulatory Patient Education Author: ASHLEY BONDS Date: 09/11/22 How to Use Cold [...] provider. Document Revised: 05/30/2021 Document Reviewed: 05/30/2021 [employer] Patient Education ? 2021 [employer] Exercising to Lose Weight Getting regular [...] your health care provider or diet and animal nutritionist (dietitian). This may include: ? Eating fewer [...] provider. Document Revised: 09/09/2021 Document Reviewed: 09/09/2021 [employer] Patient Education ? 2021 [facility]. Orthopedics How to Use Cold Therapy Cold [...] provider. Document Revised: 05/30/2021 Document Reviewed: 05/30/2021 [employer] Patient Education ? 2021 [employer] Physical Medicine and Rehabilitation Exercising to [...] your health care provider or diet and animal nutritionist (dietitian). This may include: ? Eating fewer [...] provider. Document Revised: 09/09/2021 Document Reviewed: 09/09/2021 Elsevier Patient Education ? 2021 [employer] Extracted from:Title: sciatica Author: ASHLEY BONDS [...] Author: ASHLEY BONDS Date: 06/07/22 1.?EXAM, OCCUPATIONAL, FPC OR SEPARATION FROM [employer] SERVICE, SHORT Part 1 of half-way completed please see form, pt to scheduled [...] mobility. ?Patient instructed to follow-up with primary lead care manager in one month for further evaluation or sooner as needed.? Ordered: naproxen(naproxen 500 mg oral delayed release tablet), 1 tab(s), Oral, BID, # 60 tab(s), 0 total refill(s), Acute, 09/20/2022, 1 tab(s) Oral BID, Pharmacy: [facility] [Not filled] ketorolac(Toradol), 30 mg, IntraMuscular, Injection, Once, First Dose: 05/20/2022 15:00:00 EDT, Stop Date: 05/20/2022 15:00:00 EDT, 05/20/2022 14:19:00 EDT Referral Request 2.0 ? 2.?Pain in left foot Pt with acute left foot pain, tender on palpation to lateral aspect of foot, she has a?hxf plantar fasciitis, is under treatment with the solderer dipper who has given-2 sets of custom orthotics, [...] fracture.? Patient has an appointment to see solderer dipper next week. Ordered: naproxen(naproxen 500 mg oral delayed release tablet), 1 tab(s), Oral, BID, # 60 tab(s), 0 total refill(s), Acute, 09/20/2022, 1 tab(s) Oral BID, Pharmacy: [facility] [Not filled] Referral Request 2.0 ? Orders: cyclobenzaprine(Flexeril 10 mg oral tablet), 1 tab(s), Oral, TID, # 30 tab(s), 0 total refill(s), Acute, 1 tab(s) Oral TID, Pharmacy: [facility] [Not filled] lidocaine topical(Lidoderm 5% topical film), 1 patch(es), Topical, Daily, Leave on for up to 12 hours within a 24 hour period (12 hours on, 12 hours off), # 30 patch(es), 3 total refill(s), Maintenance, 1 patch(es) Topical Daily,Instr:Leave on for up to 12 hours within a 24 hour period (12 hours... Diagnostic Tests PendingCRP-C+Homo S [id number] 05/29/22 11/03/2024 [id number] Functional Status Combined list of recent functional and cognitive assessments recorded at [facility] and [facility] (VA).VA Functional [place] Measurement (FIM) Scale: 1 = Total Assistance (Subject = 0% +), 2 = Maximal Assistance (Subject = 25% +), 3 = Moderate Assistance (Subject = 50% +), 4 = Minimal Assistance (Subject = 75% +), 5 = Supervision, 6 = Modified [place] (Device), 7 = Complete [place] (Timely, Safely). Assessment Date/Time Source Assessment Type Assessment Skill Assessment Score Assessment Details No data available for this section
--- NOTE | 2024-11-03 08:21 | MHC.OFFWIV ---
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: No Allergies dyes Adverse Reaction (Severe, Uncoded 11/03/24 08:51) 3rd degree haskins fragrance Adverse Reaction (Severe, Uncoded 11/03/24 08:51) Haskins inks Adverse Reaction (Severe, Uncoded 11/03/24 08:51) Haskins Medication List - Last Reconciled 11/03/24 by KESHAV Peterson- albuterol sulfate 90 mcg/actuation 2 puffs inhalation Q4-6H PRN cholecalciferol (vitamin D3) 50 mcg PO DAILY 30 days escitalopram oxalate (Lexapro) 10 mg PO DAILY 30 days naproxen 500 mg PO BID PRN Do you need a note to return to daycare/school/sports/work: No HPI HPI Comments History of Present Illness Details History of Present Illness - The patient is a 39-year-old female presenting with right shoulder pain. - She reports the onset of pain approximately a week ago after beginning a workout regimen. - Specific exercises causing the pain are unspecified, but activities included barbells, cardio, and movements involving overhead, pushing, and pulling. - The pain is localized to the posterior aspect of the shoulder, consistent in nature and feels like being punched. - Worsening factors include arm use and sleeping on the right side, while rest provides relief. - She has tried Naproxen with inadequate symptom resolution. - No history of previous shoulder injury or surgical intervention. - The patient expresses concern due to the impact of pain on her duties, especially regarding her inability to perform push-ups, affecting job functionality and promotion. Exam: R arm neurovasc intact, FROM, normal strength. No shoulder pain. Pain w palp over R rhomboid. Discussion Notes During our discussion, I explained to the patient that her symptoms are consistent with a muscle strain in the rhomboid area, likely related to recent workout activities. I recommended physical therapy as the primary mode of treatment, explaining that it would aid in realigning and strengthening the affected muscle group. We discussed limiting certain exercises, especially those involving push-ups and pulling motions, which aggravate the pain, and maintaining a level of activity that does not exacerbate the symptoms. I advised continuing with Naproxen twice daily to manage pain and inflammation. We also talked about the importance of modifying certain movements at work and during physical training in the to prevent further injury. The patient was informed about scheduling physical therapy sessions at a preferred location, and the need to follow up with the clinic should there be delays in physical therapy availability or if symptoms worsen. She asked that i complete a work modification form; this was done at the time of the visit and given back to her. Assessment and Plan The plan includes initiating physical therapy to focus on muscle realignment and function. Naproxen will be used for pain and inflammation at a specified dose. The patient should avoid activities that exacerbate such as push-ups and refrain from strenuous activities that may exacerbate the symptoms. We will keep in close contact to adjust the treatment plan as necessary based on therapy progress and symptom management. Patient Instructions - Begin physical therapy as recommended to improve shoulder alignment and strength. - Avoid activities such as push-ups and heavy pushing/pulling for now. - Continue taking Naproxen twice daily for pain management. - Modify work and exercise routines to prevent symptom worsening. - Contact our office if issues arise in scheduling therapy or if symptoms do not improve. Consent Patient was informed and verbally consented to the use of an ambient scribe for clinic note documentation during this visit. Total time spent caring for the patient today was 30 minutes. This includes time spent before the visit reviewing the chart, time spent during the visit, and time spent after the visit on documentation, reviewing laboratory results, diagnostic imaging, medications, performing a medically necessary evaluation, counseling on diagnoses, care coordination, ordering appropriate tests, ordering appropriate medications, review of tests performed by other providers, reporting test results with the patient, communication with other healthcare providers. [facility] Medical History Right arm pain Migraine delivery delivered Anxiety PTSD (post-traumatic stress disorder) Memory loss Back problem Arthritis Surgical History Status post fusion of wrist H/O tubal ligation Family History Mother High cholesterol Father Clotting disorder Alcoholism Psychiatric disorder Paternal Grandmother Clotting disorder Paternal Grandfather Clotting disorder Family/Other Asthma Other Mental health disorder Substance abuse Social History Household Members: Family Both parents involved: No Caregiver staying overnight: No Housing: House Are you a primary coronary care unit nurse to a significant other at home: No Do you presently have visiting nurse or other home services: No 75 years or older and lives alone: No Alcohol intake: never Patient Tobacco Use Status: Never used Tobacco e-Cigarette/Vaping Use: Never Used Second Hand Smoke Exposure: No service: Yes Current occupational status: 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 Plan . Orders: Orders PT Evaluation and Treatment Today M54.9 - Dorsalgia, unspecified, M79.18 - Myalgia, other site Coding Level of Care Code Est Pt Level 4 (29341) Diagnoses Upper back pain on right side M54.9 Rhomboid muscle pain M79.18
[2024-11-03 08:24] VITALS: BP 98/66; PULSE 60; RESP 12; TEMP 36.2; O2SAT 97; BMI 29.9
== END 2024-11-03 09:04 | disposition home or self-care (01) ==
PROVIDERS: PCP Nurse Practitioner Family; Visit Provider Nurse Practitioner Family
DX: M54.9 Dorsalgia, unspecified (principal); M79.18 Myalgia, other site

== ENCOUNTER → 2024-11-03 08:08 | Outpatient (BNVA) | payer OTHER, SELFPAY | PROVIDERS: PCP Nurse Practitioner Family | DX: M54.9 Dorsalgia, unspecified (principal); M79.18 Myalgia, other site | CPT/HCPCS: 99212 ==

== ENCOUNTER 2025-01-25 06:00 | Outpatient (RCR) | payer OTHER, SELFPAY ==
--- NOTE | 2024-12-14 10:31 | MHC.PT.EP ---
[facility] [place] Office [place] Office [place] Office [address] Grant Pedraza [address] [phone] F: [phone] F: [phone] F: [phone] F: [phone] Physical Therapy Plan of Care Date of Evaluation: 12/14/24 Date of Surgery: Diagnosis: upper back pain - right side - rhomboid muscle pain Assessment: Patient is a 39 year old R handed female who presents with s/s consistent with upper back pain on right side. 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 Patient past medical history includes wrist fusion, back pain, anxiety and PTSD. Current impairments include pain, posture, ROM, strength, activity tolerance and functional mobility. Functional limitations include decreased ability to reach, sleep, lift, carry, push, pull and perform push ups. Patient is motivated with good rehab potential. Skilled PT will address impairments and functional limitations in order to achieve goals. Frequency and Duration: The patient will be seen 2x/week for 5 weeks Short Term Goals: I with HEP - 2 weeks TTP absent of MT/LT/rhomboid - 3 weeks min pec tightness b/l - 3 weeks Trust Evaluation Supervisor Goals: MT/LT strength 4+/5 grossly - 5 weeks ER strength 4+/5 - 5 weeks Oswestry 18% or less - 5 weeks Max pain with work and daily routine - 5 weeks Able to do 20 push ups pain free - 5 weeks Treatment Plan: Modalities to reduce pain, spasms and effusion. Manual therapy to restore motion and function. Therapeutic exercise to improve strength and flexibility. Neuromuscular re-education for posture and balance. Therapeutic activities to return to functional activities of daily living. Electronically signed by: Enoch Posadas, PT Please sign and return to therapist. Thank you for your referral.
--- NOTE | 2025-02-04 09:47 | MHC.PT.DC ---
[facility] [place] Office [place] Office [place] Office [address] Grant Pedraza [address] [phone] F: [phone] F: [phone] F: [phone] F: [phone] Physical Therapy Discharge Report Diagnosis: upper back pain - right side - rhomboid muscle pain Date of Surgery: Date of Evaluation: 12/14/24 Date of Discharge: 01/26/25 Treatments to Date: 8 Cancellations to Date: No Shows to Date: Discharge Status: Improved Function Independent with HEP Discharge Summary: Pt with temporary relocation to [place]. 01/25/25: pt still with reduced s/s and tissue tension. due to relocation, we will d/c to HEP [place]. 01/20/25: pt educated on push up mechanics, low tolerance her due to multiple location pain. still with TrP present, though overall pain is improving. Pt has improved postural awareness and min pec tightness b/l. 01/13/25: pt with post cuff soreness today. edu significantly on posture and purpose for intervetnions. pt continues with pec tightness noting it may be related to weight carried at work 01/10/25: pt progressing well with skilled PT. no adverse reactions. reduced tissue tension noted. 01/06/25: pt has been feeling better overall with skilled PT. but still with TTP around R scap, tight UT/LS and teres. TTP MT/LT/Rhomboid. edu on posture and body mechanics. 12/22/24: pt has been feeling better overall with skilled PT. no adverse reactions. continue to progress as tolerated. responding well to current program and STM. 12/21/24: pt has been busy and unable to perform HEP. educated on importance of this. discussed use of objects to relieve TrP at home. Patient is a 39 year old R handed female who presents with s/s consistent with upper back pain on right side. 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 Patient past medical history includes wrist fusion, back pain, anxiety and PTSD. Current impairments include pain, posture, ROM, strength, activity tolerance and functional mobility. Functional limitations include decreased ability to reach, sleep, lift, carry, push, pull and perform push ups. Patient is motivated with good rehab potential. Skilled PT will address impairments and functional limitations in order to achieve goals. Electronically signed by: Enoch Posadas, PT Please sign and return to therapist. Thank you for your referral.
== END 2025-02-04 09:48 | disposition home or self-care (01) ==
LOC: HO.PTCHIC 06:00
PROVIDERS: PCP Nurse Practitioner Family; Visit Provider Nurse Practitioner Family
DX: M54.6 Pain in thoracic spine (principal); M79.18 Myalgia, other site
CPT/HCPCS: 97110; 97140; 97162

== ENCOUNTER 2025-04-29 08:09 | Outpatient (AMB) | payer OTHER, SELFPAY ==
--- NOTE | 2025-04-29 08:15 | MHC.PC.OV ---
Vital Signs 04/29/25 08:23 Height 5 ft 6 in Weight 195 lb 6 oz BMI 31.5 BP 118/62 Blood Pressure Location Rt brachial Position Sitting Respiration 16 Pulse 62 Pulse Source Pulse Oximeter Temp 98.4 F Temp Source Oral Pulse Oximetry (%) 100 Oxygen Delivery Method Room Air Intake Visit Reasons: Medical Profile Form Intake Note: patient here for a referral for PT Pan Devulcanizer Required: No Is last menstrual period known: Yes Last menstrual period: 04/07/25 Post menopausal: No Patient : No Allergies dyes Adverse Reaction (Severe, Uncoded 04/29/25 08:38) 3rd degree haskins fragrance Adverse Reaction (Severe, Uncoded 04/29/25 08:38) Haskins inks Adverse Reaction (Severe, Uncoded 04/29/25 08:38) Haskins Medication List - Last Reconciled 04/29/25 by Logan Garcia CNP albuterol sulfate 90 mcg/actuation 2 puffs inhalation Q4-6H PRN cholecalciferol (vitamin D3) 50 mcg PO DAILY escitalopram oxalate (Lexapro) 10 mg PO DAILY 30 days meloxicam 15 mg PO DAILY naproxen 500 mg PO BID PRN Tobacco use date assessed: 04/29/25 Dental Screening Dental Screen Date: 04/29/25 Did you have a dental visit in the last 12 months?: Yes Did you have a dental problem in the last 6 months where you did not have access to dental care?: No Was dental information given to patient?: Patient has dentist HPI HPI Comments History of Present Illness Details 39-year-old female presents with request for PT referral for right ankle pain. She notes that on 02/09, she sprained her right ankle during 3 months training. She notes right lateral ankle pain and tingling sensation which radiates to the great toe only to palpation and ambulation. She was evaluated at an urgent care in 02/2025 and was informed his ankle was healing slowly; x-ray was negative; given an ankle brace which she continues to wear; PT was recommended. She has been taking 15mg of meloxicam daily without relief. She notes that she did not complete PT of her right-sided upper back pain and request a referral for continuation. [facility] Medical History Right arm pain Migraine delivery delivered Anxiety PTSD (post-traumatic stress disorder) Memory loss Back problem Arthritis Surgical History Status post fusion of wrist H/O tubal ligation Family History Mother High cholesterol Father Clotting disorder Alcoholism Psychiatric disorder Paternal Grandmother Clotting disorder Paternal Grandfather Clotting disorder Family/Other Asthma Other Mental health disorder Substance abuse Social History Household Members: Family Both parents involved: No Caregiver staying overnight: No Housing: House Are you a primary vp care management to a significant other at home: No Do you presently have visiting nurse or other home services: No 75 years or older and lives alone: No Alcohol intake: never Patient Tobacco Use Status: Never used Tobacco e-Cigarette/Vaping Use: Never Used Second Hand Smoke Exposure: No service: Yes Current occupational status: 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 Adonay Amaya, Louann Brito, Darien Zarco and colleagues, with an educational dee from [employer]. Review of Systems Const Details: Const Denies chills, Denies fatigue, Denies fever(s), Denies headache(s) and Denies weakness ENT Denies dizziness and Denies headache(s) Card Denies chest pain, Denies lightheadedness, Denies dyspnea and Denies other (Palpitations) Resp Denies cough, Denies dyspnea, Denies wheezing and Denies other ( shortness of breath) GI Denies abdominal pain, Denies melena, Denies hematochezia, Denies change in bowel habits, Denies dyspepsia and Denies nausea Denies hematuria and Denies dysuria Musc Reports as per HPI Skin/Breast Denies rash, Denies unusual bruising and Denies wounds Neuro Denies abnormal gait, Denies dizziness, Denies headache(s), Denies memory loss, Denies numbness, Denies Sensory deficit (Neuro), Denies weakness Psych Denies anxiety, Denies depression, Denies memory loss Endo Denies cold intolerance, Denies fatigue, Denies heat intolerance, Denies polydipsia and Denies polyuria Aller/Immun Denies wheezing Physical exam (Primary Care) Vital Signs: Last Vital Signs Temp 98.4 F 04/29/25 08:23 Pulse 62 04/29/25 08:23 Resp 16 04/29/25 08:23 BP 118/62 04/29/25 08:23 Pulse Ox 100 04/29/25 08:23 Oxygen Delivery Method Room Air 04/29/25 08:23 BMI result Body Mass Index 31.5 Tobacco/Smoking Status: Tobacco use Status Tobacco use date assessed 04/29/25 04/29/25 08:23 Patient Tobacco Use Status Never used Tobacco 04/29/25 08:23 e-Cigarette/Vaping Use Never Used 04/29/25 08:23 Thrive Assessment: Date of Thrive Assessment Date Thrive assessed 09/03/24 04/29/25 08:23 Const Other: General: no acute distress and well developed Nutritional Appearance: well nourished Orientation/consciousness: patient oriented x3 HENMT Head: Yes normocephalic and Yes atraumatic Eyes General: appearance normal, both eyes and all related structures Pupils: Equal, round and reactive pupils present EOM: EOMs intact bilaterally Resp Effort & Inspection: normal respiratory effort Auscultation: clear to auscultation bilaterally Cardio Rate: regular rate Rhythm: regular rhythm Heart sounds: S1 normal heart sound present, S2 normal heart sound present, no gallops, no murmurs and no rubs GI Palpation (GI): No Abdominal aortic bruit present, Soft to palpation, nontender, No hepatosplenomegaly present and No Rebound tenderness present Auscultation: normal bowel sounds General: Yes no CVA tenderness Back/Spine/Pelvis Back: no CVA tenderness Cervical Spine: cervical ROM normal and No Cervical spine tenderness Thoracic/Lumbar Spine: thoraco-lumbar ROM normal, No pain with thoraco-lumbar ROM, No thoracic spinal tenderness and No lumbar spinal tenderness Extrem General: Yes normal to inspection, No calf tenderness, Mild edema to the right lateral ankle/malleolus, no edema or overt injury/trauma, normal CMS, positive DP/PT pulses Skin General: warm and dry. Normal skin color. Normal skin turgor Neuro General: patient oriented x3, gait normal and no focal neuro deficit Cranial nerves: Yes Equal, round and reactive pupils present Cognition (Neuro): normal cognition Gait exam (Neuro): Normal gait present Sensory Exam: No Sensory deficit (Neuro) Psych Appearance: grossly normal Affect: normal affect Attitude: cooperative Thought process: Normal thought process present Coding Level of Care Code Est Pt Level 4 (30293) Diagnoses Right ankle sprain S93.401A Upper back pain on right side M54.9 Vitamin D deficiency E55.9 Assessment & Plan Assessment & Plan (1) Right ankle sprain: Code(s): S93.401A - Sprain of unspecified ligament of right ankle, initial encounter Category: Medical Plan: Mild edema to the right lateral ankle/malleolus, no edema or overt injury/trauma, normal CMS, positive DP/PT pulses. Continue current treatment regimen. May take Tylenol 650 mg every 6-8 hours as needed. Warm/cool compresses encouraged. Wear ankle brace as needed. Elevate right lower extremity to reduce edema. Follow-up for an extended physical exam. Return sooner with symptoms or concerns. Verbalized understanding and agreed with the plan. (2) Upper back pain on right side: Code(s): M54.9 - Dorsalgia, unspecified Category: Medical Plan: She did not complete PT of her right-sided upper back pain and request a referral for continuation. New PT referral made. (3) Vitamin D deficiency: Code(s): E55.9 - Vitamin D deficiency, unspecified Category: Medical Plan: Recent vitamin-D level was normal. Continue current treatment regimen. Verbalized understanding and agreed with the plan. Orders: Orders PT Evaluation and Treatment Today M54.9 - Dorsalgia, unspecified, S93.401A - Sprain of unspecified ligament of right ankle, initial encounter Medications: Discontinued naproxen Discontinued Reason: Patient no longer taking 500 mg PO BID PRN 60 tabs 1RF pain
--- OUTSIDE RECORDS SUMMARY | 2025-04-29 08:22 | XMS_ITS | Patient Health Record ---
Author Organization [facility] Address [address] [place] [address] Care Team Providers Care Decal Applier Name Role Phone MARIAM KAUFFMAN Unavailable [phone] Allergies No Known Allergies Reason For Referral No Information Medications Medication SIG (Take, Route, Frequency, Duration) Notes Start Date End Date Status Back Brace Size: Medium Wear while working 022 Active Ibuprofen Active Valium 10 MG as directed Orally Take 1 tab 20 minutes before the injection; Duration: 6 days Take one tab 20 minutes before the procedure on the procedure days only 12/19/2021 Active Cyclobenzaprine HCl Active Social History Tobacco Use: Social History Observation Description Date Details (start date - stop date) Never Smoker NA - NA Tobacco Use/Smoking Question Answer Notes Are you a nonsmoker Alcohol Screen (Audit-C) Question Answer Notes Did you have a drink containing alcohol in the p ast year? No Points 0 Interpretation Negative Problems Problem Type SNOMED Code ICD Code Onset Dates Problem Status W/U Status Risk Notes Problem Prolapsed lumbar intervertebral disc (363176850) Lumbar disc herniation (M51.26) Active confirmed Problem Prolapsed cervical intervertebral disc (683622630) Cervical disc herniation (M50.20) Active confirmed Problem Degeneration of lumbar intervertebral disc (41535131) Lumbar degenerative disc disease (M51.36) Active confirmed Problem Degeneration of cervical intervertebral disc (61102337) Degenerative cervical disc (M50.30) Active confirmed Plan Of Treatment No Information
[2025-04-29 08:23] VITALS: BP 118/62; PULSE 62; RESP 16; TEMP 36.9; O2SAT 100; BMI 31.5
== END 2025-04-29 08:51 | disposition home or self-care (01) ==
LOC: HO.HMCFM 08:09
PROVIDERS: PCP Nurse Practitioner Family; Visit Provider Nurse Practitioner Family
DX: S93.401A Sprain of unspecified ligament of right ankle, initial encounter (principal); M54.9 Dorsalgia, unspecified; E55.9 Vitamin D deficiency, unspecified

== ENCOUNTER → 2025-04-29 08:09 | Outpatient (BNVA) | payer OTHER, SELFPAY | PROVIDERS: PCP Nurse Practitioner Family; Visit Provider Nurse Practitioner Family | DX: S93.401A Sprain of unspecified ligament of right ankle, initial encounter (principal); M54.9 Dorsalgia, unspecified; E55.9 Vitamin D deficiency, unspecified; X58.XXXA Exposure to other specified factors, initial encounter; Y93.9 Activity, unspecified; Y92.9 Unspecified place or not applicable; Y99.9 Unspecified external cause status | CPT/HCPCS: 99212 ==